=== PATIENT | male | born 1955 | race Caucasian/White ===

== ENCOUNTER 2017-07-16 21:47 | Observation (INO) ==
[2017-07-16 22:16] LABS: Basophils # 0.1 K/mcL (0.0-0.2); Basophils % 0.9 %; Eosinophils # 0.2 K/mcL (0.0-0.6); Eosinophils % 2.9 %; Hematocrit 44.4 % (37.5-50.1); Hemoglobin 15.1 g/dL (12.9-16.9); Immature Granulocytes % 0.4 % (0-4); Lymphocytes # 2.7 K/mcL (0.6-4.6); Lymphocytes % 38.5 %; Mean Corpuscular Hemoglobin 29.2 pg (28.0-33.3); Mean Corpuscular Volume 85.9 fL (83.0-100.0); Mean Platelet Volume 10.7 fL (9.4-12.4); Monocytes # 0.3 K/mcL (0.0-1.3); Monocytes % 4.2 %; Neutrophils # 3.7 K/mcL (1.6-8.9); Platelet Count 188 K/mcL (140-400); Red Blood Count 5.17 M/mcL (4.19-5.50); Segmented Neutrophils % 53.1 %
[2017-07-16 22:22] LABS: Prothrombin Time 10.6 Seconds (9.4-12.1)
[2017-07-16 22:25] LABS: Activated Partial Thrombo Time 30.9 Seconds (26.0-36.0)
[2017-07-16 22:29] LABS: Alanine Aminotransferase 18 Units/L (7-52); Albumin 3.9 g/dL (3.5-5.7); Albumin/Globulin Ratio 1.6 (1.1-2.2); Alkaline Phosphatase 72 Units/L (34-104); Aspartate Amino Transferase 20 Units/L (13-39); BUN/Creatinine Ratio 13 (6-26); Bilirubin,Indirect 0.4 mg/dL (0.0-1.2); Bilirubin,Total 0.4 mg/dL (0.3-1.0); Blood Urea Nitrogen 13 mg/dL (8-23); Carbon Dioxide 26 mEq/L (23-29); Chloride 107 mEq/L (98-107); Globulin 2.5 g/dL (2.4-3.5); Glucose 144 mg/dL (70-105); Osmolality,Calculated 285 (280-300); Potassium 3.9 mEq/L (3.5-5.1); Sodium 136 mEq/L (136-145); Total Protein 6.4 g/dL (6.4-8.9); eGFR For African Americans > 60 (> 60); eGFR For Non-African Americans > 60 (> 60)
[2017-07-16 22:30] LABS: Bilirubin,Urine Negative (Negative); Blood,Urine Trace (Negative); Clarity,Urine Clear (Clear); Color,Urine Yellow (Yellow); Glucose,Urine (UA) 500 mg/dL (Normal); Ketones,Urine Negative (Negative); Leukocyte Esterase,Urine Negative (Negative); Nitrite,Urine Negative (Negative); PH,Urine 6.5 pH Units (5.0-8.0); Protein,Urine 100 mg/dL (Neg-Trace); Specific Gravity,Urine 1.008 (1.010-1.025); Urobilinogen,Urine Normal (Normal)
[2017-07-16 22:32] LABS: Hyaline Casts,Urine None Seen per lpf (None-Few); Squamous Epithelial Cell,Urine Many per lpf (None-Few); WBC,Urine 0-3 per hpf (0-3)
[2017-07-16 22:35] LABS: Ethanol < 10 mg/dL (0-10)
[2017-07-16 22:36] LABS: Amphetamine Screen,Urine Negative ng/mL (Cutoff=1000); Barbiturate Screen,Urine Negative ng/mL (Cutoff=200); Benzodiazepines Screen,Urine Negative ng/mL (Cutoff=200); Cannabinoid Screen,Urine Negative ng/mL (Cutoff = 50); Cocaine Screen,Urine Negative ng/mL (Cutoff= 300); Opiate Screen,Urine Negative ng/mL (Cutoff=300); Phencyclidine Screen,Urine Negative ng/mL (Cutoff=25)
--- NOTE | 2017-07-16 22:38 | Emergency Department Note ---
Disposition Clinical Impression: Fall Qualifiers: Encounter type: initial encounter Qualified Code(s): W19.XXXA - Unspecified fall, initial encounter Altered mental status Qualifiers: Altered mental status type: unspecified Qualified Code(s): R41.82 - Altered mental status, unspecified Disposition: Admitted As Inpatient Condition: Good [facility]Primary Care Provider[facility] - Forms: ED Satisfaction Letter Time of Disposition: 01:56 General Adult HPI - General Chief complaint: ED Altered Mental Status Stated complaint: AMS Time Seen by Provider: 07/16/17 21:49 Source: family, EMS Limitations: altered mental status Nursing Notes Reviewed: Yes Vital Signs Reviewed: Yes - History of Present Illness HPI Narrative: Patient is a 61-year-old male that presents to the emergency department via EMS for altered mental status. EMS states that he was at home slumped to the side and slid down the fridge. Patient is unable to provide any history here in the emergency department. There is no other family present to provide history Pain Scale: 0 - Related Data Home Medications Medication Instructions Recorded Confirmed Cholecalciferol (Vitamin D3) 2,000 unit PO DAILY 01/27/15 02/20/16 [Vitamin D3] Cyanocobalamin (Vitamin B-12) 1,000 mcg PO QAM 01/27/15 02/20/16 [Vitamin B12] Docusate [Colace] 200 mg PO DAILY 01/27/15 02/20/16 Duloxetine HCl [Cymbalta] 30 mg PO DAILY 01/27/15 02/20/16 Ferrous Sulfate 325 mg PO 3XW 01/27/15 02/20/16 Insulin NPH Human Isophane 38 unit SQ QAM 01/27/15 02/24/16 [Novolin N] Lisinopril [Zestril] 20 mg PO DAILY 01/27/15 02/20/16 Meclizine HCl [Antivert] 25 mg PO BID PRN 01/27/15 02/20/16 Melatonin 3 mg PO HS 01/27/15 02/24/16 Methocarbamol 500 mg PO TID 01/27/15 02/24/16 Metoprolol Tartrate 25 mg PO BID 01/27/15 02/20/16 Sennosides [Senna] 8.6 mg PO BID PRN 01/27/15 02/20/16 Terazosin HCl 2 mg PO HS 01/27/15 02/20/16 Buspirone HCl [Buspar] 10 mg PO BID 08/13/15 02/20/16 Insulin ASPART [NovoLOG] 2 - 10 unit SQ AD 08/13/15 02/20/16 Simvastatin [Zocor] 40 mg PO HS 08/13/15 02/20/16 Gabapentin [Neurontin] 600 mg PO TID 02/24/16 02/24/16 Insulin NPH Human Isophane 42 unit SQ QPM 02/24/16 02/24/16 [Humulin N Kwikpen] Nitroglycerin 0.4 mg SL Q5MIN PRN 02/24/16 02/24/16 Trazodone HCl 300 mg PO HS 02/24/16 02/24/16 Previous Rx's Medication Instructions Recorded Aspirin 325 mg PO DAILY 30 Days tablet 08/16/15 Allergies Allergy/AdvReac Type Severity Reaction Status Date / Time metformin AdvReac Nausea Verified 02/21/16 16:29 bleach Allergy Hives Uncoded 01/27/15 18:42 Limitations: ROS unobtainable due to patients medical condition Past Medical History - Past Medical History Medical history: Reports: coronary artery disease, CVA, diabetes, hyperlipidemia , hypertension, peripheral artery disease, RA Surgical history: Reports: angioplasty/stent (x3 in 2005), cholecystectomy, other (exploratory laparotomy x3 for SBO, last was in 2012) Psychiatric history: Reports: anxiety, depression, PTSD - Social History Smoking Status: Never smoker Smokeless Tobacco Status: No Alcohol use: Reports: none Drug use: Reports: none Physical Exam - General Limitations: altered mental status General appearance: obtunded, obese - Head Head exam: atraumatic, normocephalic - Eye Eye exam: Present: normal appearance - Neck Neck exam: Present: normal inspection. Absent: full ROM, trachea midline - Cardiovascular Cardiovascular exam: Present: regular rate, normal rhythm, normal heart sounds, +S1, +S2 - Abdominal Exam Abdominal exam: Present: soft, normal bowel sounds. Absent: distention, guarding, rebound - Neurological Exam Neurological exam: Present: other (The patient was altered and not alert on physical exam.) - Psychiatric Psychiatric exam: Present: other (Able to assess due to the patient's mental status) - Skin Skin exam: Present: warm, dry, intact Course - Reevaluation(s) Reevaluation #1: On reevaluation of the patient there is family at bedside who states that he tripped over a dog and bounced off the refrigerator. He states that he is now having neck pain and back pain. Due to finding out that he has neck pain and back pain we will obtain CT scans of the cervical thoracic and lumbar spine. Time: 23:18 Vital Signs Temperature 97.0 F L 07/16/17 21:47 Pulse Rate 77 07/16/17 21:47 Respiratory Rate 16 07/16/17 21:47 Blood Pressure 202/126 07/16/17 21:47 O2 Sat by Pulse Oximetry 92 07/16/17 21:47 Temperature 99.5 F 07/16/17 22:01 Pulse Rate 72 07/16/17 23:18 Respiratory Rate 18 07/16/17 23:18 Blood Pressure 131/87 07/16/17 23:18 O2 Sat by Pulse Oximetry 99 07/16/17 23:18 Oxygen Delivery Oxygen Delivery Nasal Cannula Medical Decision Making - [facility] Narrative Medical decision making narrative: Due to the patient having a recent fall we obtained a CT scan of the head, cervical spine, thoracic spine and lumbar spine. There is no acute findings noted on any of these imaging modalities. The patient appeared to be spilling glucose into his urine. Otherwise the remainder of his laboratory testing was unremarkable. However when the patient was road tested and try to ambulate he became dizzy and stated he was not sure he could come back to his bed. Due to the patient still having symptoms will admit the patient to the hospital for further evaluation and management. I have spoken with the hospitalist and they will accept the patient to their service. The patient will be admitted to the hospital at this time for further evaluation and management. - Lab Data Lab results reviewed: Yes I reviewed the patient's lab results. Result diagrams: 07/16/17 22:05 07/16/17 22:05 Lab Results 07/16/17 07/16/17 07/16/17 Range/Units 22:05 22: 22: WBC 7.0 (4.3-11.1) K/mcL RBC 5.17 (4.19-5.50) M/mcL Hgb 15.1 (12.9-16.9) g/dL Hct 44.4 (37.5-50.1) % MCV 85.9 (83.0-100.0) fL MCH 29.2 (28.0-33.3) pg MCHC 34.0 (31.6-35.5) g/dL RDW 13.0 (11.5-14.5) % Plt Count 188 (140-400) K/mcL MPV 10.7 (9.4-12.4) fL Immature Gran % 0.4 (0-4) % Seg Neutrophils % 53.1 % Lymphocytes % 38.5 % Monocytes % 4.2 % Eosinophils % 2.9 % Basophils % 0.9 % Neutrophils # 3.7 (1.6-8.9) K/mcL Lymphocytes # 2.7 (0.6-4.6) K/mcL Monocytes # 0.3 (0.0-1.3) K/mcL Eosinophils # 0.2 (0.0-0.6) K/mcL Basophils # 0.1 (0.0-0.2) K/mcL PT 10.6 (9.4-12.1) Seconds INR 1.0 APTT 30.9 (26.0-36.0) Seconds Sodium 136 (136-145) mEq/L Potassium 3.9 (3.5-5.1) mEq/L Chloride 107 (98-107) mEq/L Carbon Dioxide 26 (23-29) mEq/L BUN 13 (8-23) mg/dL Creatinine 1.00 (0.70-1.30) mg/dL Est GFR ( Amer) > 60 (> 60) Est GFR (Non-Af Amer) > 60 (> 60) BUN/Creatinine Ratio 13 (6-26) Glucose 144 H (70-105) mg/dL Calculated Osmolality 285 (280-300) Calcium 9.0 (8.6-10.3) mg/dL Total Bilirubin 0.4 (0.3-1.0) mg/dL Direct Bilirubin 0.0 (0.0-0.2) mg/dL Indirect Bilirubin 0.4 (0.0-1.2) mg/dL AST 20 (13-39) Units/L ALT 18 (7-52) Units/L Alkaline Phosphatase 72 (34-104) Units/L Ammonia (16-53) mcmol/L Troponin I (< 0.04) ng/mL Serum Total Protein 6.4 (6.4-8.9) g/dL Albumin 3.9 (3.5-5.7) g/dL Globulin 2.5 (2.4-3.5) g/dL Albumin/Globulin Ratio 1.6 (1.1-2.2) TSH 0.454 (0.340-5.600) mcIU/mL Urine Color (Yellow) Urine Clarity (Clear) Urine pH (5.0-8.0) pH Units Ur Specific [place] (1.010-1.025) Urine Protein (Neg-Trace) mg/dL Urine Glucose (UA) (Normal) mg/dL Urine Ketones (Negative) mg/dL Urine Blood (Negative) Urine Nitrite (Negative) Urine Bilirubin (Negative) Urine Urobilinogen (Normal) mg/dL Ur Leukocyte Esterase (Negative) Urine Microscopic RBC (0-3) per hpf Urine Microscopic WBC (0-3) per hpf Ur Squamous Epith Cells (None-Few) per lpf Urine Bacteria (None-Few) per hpf Hyaline Casts (None-Few) per lpf Ur Culture Indicated? (NO) Urine Opiates Screen (Pygczx=284) ng/mL Ur Barbiturates Screen (Fdefrb=609) ng/mL Ur Phencyclidine Scrn (Cutoff=25) ng/mL Ur Amphetamines Screen (Dwaymp=6062) ng/mL U Benzodiazepines Scrn (Pjqgok=484) ng/mL Urine Cocaine Screen (Cutoff= 300) ng/mL U Marijuana (THC) Screen (Cutoff = 50) ng/mL Ethyl Alcohol < 10 (0-10) mg/dL 07/16/17 07/16/17 07/16/17 Range/Units 22:05 22:05 22:16 WBC (4.3-11.1) K/mcL RBC (4.19-5.50) M/mcL Hgb (12.9-16.9) g/dL Hct (37.5-50.1) % MCV (83.0-100.0) fL MCH (28.0-33.3) pg MCHC (31.6-35.5) g/dL RDW (11.5-14.5) % Plt Count (140-400) K/mcL MPV (9.4-12.4) fL Immature Gran % (0-4) % Seg Neutrophils % % Lymphocytes % % Monocytes % % Eosinophils % % Basophils % % Neutrophils # (1.6-8.9) K/mcL Lymphocytes # (0.6-4.6) K/mcL Monocytes # (0.0-1.3) K/mcL Eosinophils # (0.0-0.6) K/mcL Basophils # (0.0-0.2) K/mcL PT (9.4-12.1) Seconds INR APTT (26.0-36.0) Seconds Sodium (136-145) mEq/L Potassium (3.5-5.1) mEq/L Chloride (98-107) mEq/L Carbon Dioxide (23-29) mEq/L BUN (8-23) mg/dL Creatinine (0.70-1.30) mg/dL Est GFR ( Amer) (> 60) Est GFR (Non-Af Amer) (> 60) BUN/Creatinine Ratio (6-26) Glucose (70-105) mg/dL Calculated Osmolality (280-300) Calcium (8.6-10.3) mg/dL Total Bilirubin (0.3-1.0) mg/dL Direct Bilirubin (0.0-0.2) mg/dL Indirect Bilirubin (0.0-1.2) mg/dL AST (13-39) Units/L ALT (7-52) Units/L Alkaline Phosphatase (34-104) Units/L Ammonia 44 (16-53) mcmol/L Troponin I < 0.03 (< 0.04) ng/mL Serum Total Protein (6.4-8.9) g/dL Albumin (3.5-5.7) g/dL Globulin (2.4-3.5) g/dL Albumin/Globulin Ratio (1.1-2.2) TSH (0.340-5.600) mcIU/mL Urine Color Yellow (Yellow) Urine Clarity Clear (Clear) Urine pH 6.5 (5.0-8.0) pH Units Ur Specific [place] 1.008 L (1.010-1.025) Urine Protein 100 H (Neg-Trace) mg/dL Urine Glucose (UA) 500 H (Normal) mg/dL Urine Ketones Negative (Negative) mg/dL Urine Blood Trace H (Negative) Urine Nitrite Negative (Negative) Urine Bilirubin Negative (Negative) Urine Urobilinogen Normal (Normal) mg/dL Ur Leukocyte Esterase Negative (Negative) Urine Microscopic RBC 3-5 H (0-3) per hpf Urine Microscopic WBC 0-3 (0-3) per hpf Ur Squamous Epith Cells Many H (None-Few) per lpf Urine Bacteria Few (None-Few) per hpf Hyaline Casts None Seen (None-Few) per lpf Ur Culture Indicated? NO (NO) Urine Opiates Screen (Nbgrqf=908) ng/mL Ur Barbiturates Screen (Xpnqux=573) ng/mL Ur Phencyclidine Scrn (Cutoff=25) ng/mL Ur Amphetamines Screen (Whczpi=9944) ng/mL U Benzodiazepines Scrn (Pkntgw=202) ng/mL Urine Cocaine Screen (Cutoff= 300) ng/mL U Marijuana (THC) Screen (Cutoff = 50) ng/mL Ethyl Alcohol (0-10) mg/dL 07/16/17 Range/Units 22:16 WBC (4.3-11.1) K/mcL RBC (4.19-5.50) M/mcL Hgb (12.9-16.9) g/dL Hct (37.5-50.1) % MCV (83.0-100.0) fL MCH (28.0-33.3) pg MCHC (31.6-35.5) g/dL RDW (11.5-14.5) % Plt Count (140-400) K/mcL MPV (9.4-12.4) fL Immature Gran % (0-4) % Seg Neutrophils % % Lymphocytes % % Monocytes % % Eosinophils % % Basophils % % Neutrophils # (1.6-8.9) K/mcL Lymphocytes # (0.6-4.6) K/mcL Monocytes # (0.0-1.3) K/mcL Eosinophils # (0.0-0.6) K/mcL Basophils # (0.0-0.2) K/mcL PT (9.4-12.1) Seconds INR APTT (26.0-36.0) Seconds Sodium (136-145) mEq/L Potassium (3.5-5.1) mEq/L Chloride (98-107) mEq/L Carbon Dioxide (23-29) mEq/L BUN (8-23) mg/dL Creatinine (0.70-1.30) mg/dL Est GFR ( Amer) (> 60) Est GFR (Non-Af Amer) (> 60) BUN/Creatinine Ratio (6-26) Glucose (70-105) mg/dL Calculated Osmolality (280-300) Calcium (8.6-10.3) mg/dL Total Bilirubin (0.3-1.0) mg/dL Direct Bilirubin (0.0-0.2) mg/dL Indirect Bilirubin (0.0-1.2) mg/dL AST (13-39) Units/L ALT (7-52) Units/L Alkaline Phosphatase (34-104) Units/L Ammonia (16-53) mcmol/L Troponin I (< 0.04) ng/mL Serum Total Protein (6.4-8.9) g/dL Albumin (3.5-5.7) g/dL Globulin (2.4-3.5) g/dL Albumin/Globulin Ratio (1.1-2.2) TSH (0.340-5.600) mcIU/mL Urine Color (Yellow) Urine Clarity (Clear) Urine pH (5.0-8.0) pH Units Ur Specific [place] (1.010-1.025) Urine Protein (Neg-Trace) mg/dL Urine Glucose (UA) (Normal) mg/dL Urine Ketones (Negative) mg/dL Urine Blood (Negative) Urine Nitrite (Negative) Urine Bilirubin (Negative) Urine Urobilinogen (Normal) mg/dL Ur Leukocyte Esterase (Negative) Urine Microscopic RBC (0-3) per hpf Urine Microscopic WBC (0-3) per hpf Ur Squamous Epith Cells (None-Few) per lpf Urine Bacteria (None-Few) per hpf Hyaline Casts (None-Few) per lpf Ur Culture Indicated? (NO) Urine Opiates Screen Negative (Jpyisr=458) ng/mL Ur Barbiturates Screen Negative (Lxkmtr=036) ng/mL Ur Phencyclidine Scrn Negative (Cutoff=25) ng/mL Ur Amphetamines Screen Negative (Wmpzhc=9740) ng/mL U Benzodiazepines Scrn Negative (Fesspc=627) ng/mL Urine Cocaine Screen Negative (Cutoff= 300) ng/mL U Marijuana (THC) Screen Negative (Cutoff = 50) ng/mL Ethyl Alcohol (0-10) mg/dL - Radiology Data Radiology results reviewed: Yes I reviewed the patient's radiology results. Head CT 07/16/17 21:49 IMPRESSION: No acute intracranial abnormality. D/ / Ludy Girard MD / Ludy Girard MD Interpreting Provider: Ludy Girard MD Chest X-Ray 07/16/17 21:55 IMPRESSION: Low lung volume study without acute process. D/ / Ludy Girard MD / Ludy Girard MD Interpreting Provider: Ludy Girard MD Cervical Spine CT 07/16/17 23:16 IMPRESSION: No acute abnormality of the cervical spine. No acute abnormality of the thoracic spine. No acute abnormality of the lumbar spine. Multilevel degenerative changes throughout the cervical, thoracic, and lumbar spine. D/ / Ludy Girard MD / Ludy Girard MD Interpreting Provider: Ludy Girard MD Lumbar Spine CT 07/16/17 23:16 IMPRESSION: No acute abnormality of the cervical spine. No acute abnormality of the thoracic spine. No acute abnormality of the lumbar spine. Multilevel degenerative changes throughout the cervical, thoracic, and lumbar spine. D/ / Ludy Girard MD / Ludy Girard MD Interpreting Provider: Ludy Girard MD Thoracic Spine CT 07/16/17 23:16 IMPRESSION: No acute abnormality of the cervical spine. No acute abnormality of the thoracic spine. No acute abnormality of the lumbar spine. Multilevel degenerative changes throughout the cervical, thoracic, and lumbar spine. D/ / Ludy Girard MD / Ludy Girard MD Interpreting Provider: Ludy Girard MD - EKG Data EKG #1 EKG attestation: Yes I reviewed and interpreted this EKG. EKG results narrative: Patient's EKG shows sinus rhythm at 76 bpm, MT interval of 162, QRS duration of 105, QTC of 403. No STEMI noted on this EKG. Attestation Statement - Attestation Attestation: I examined this patient and my medical decision-making was reviewed with the Resident Physician. I agree with the documented findings, disposition and treatment plan as described except to the extent set forth below. Patient presents to the ED with altered mental status. Per significant other the patient tripped over the dog and hit his head on the refrigerator. He had a loss of consciousness. They found him slumped against the refrigerator. On arrival here patient is laying in the bed. Pupils equally reactive. Lungs are clear. He has a gag reflex. Plan. He was taken to CT that is negative. His blood pressure improved on its own. Labs unremarkable. Tox negative. Vital signs stable. The patient's mental status is improved and is now at baseline. He is complaining of some back pain so we will CT those areas to rule out fracture. Disposition pending reevaluation and ambulation.
[2017-07-16 22:57] LABS: Thyroid Stimulating Hormone 0.454 mcIU/mL (0.340-5.600)
[2017-07-16 23:01] LABS: Bacteria,Urine Few per hpf (None-Few)
[2017-07-17] MEDS ORDERED: Methocarbamol 500 MG TABLET PO PRN (02:06)
[2017-07-17] MEDS ORDERED: Naloxone 0.4 MG/ML INJ IVP PRN (02:08)
[2017-07-17] MEDS ORDERED: D5% in Water 1,000 ML IVC PRN (02:08)
[2017-07-17] MEDS ORDERED: *HR* Dextrose 50 % in Water (Syg) 50 ML SYRINGE IVP PRN (02:08)
[2017-07-17] MEDS ORDERED: Dextrose Gel 15 GM/37.5 ML TUBE PO PRN ×2 (02:08)
--- NOTE | 2017-07-17 02:16 | Internal Med History&Physical ---
Date of Encounter: 07/17/17 Time of Encounter: 02:13 Assessment and Plan (1) Concussion Current visit: Yes Status: Acute admit under obs. observed overnight OT/PT in the a.m to test ambulation, gait and balance Qualifiers: Encounter type: initial encounter Loss of consciousness presence/duration: with LOC of unspecified duration Qualified Code(s): S06.0X9A - Concussion with loss of consciousness of unspecified duration, initial encounter (2) Fall Current visit: Yes Status: Acute mechanical fall. witnessed that he tripped on his dog leading to concussion Qualifiers: Encounter type: initial encounter Qualified Code(s): W19.XXXA - Unspecified fall, initial encounter (3) CAD (coronary artery disease) Current visit: No Status: Chronic continue med s/p stents on asa alone patient does not recall full med list Qualifiers: Coronary Disease-Associated Artery/Lesion type: [place] artery [place] vs. 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 Givens is a 61 year old male with hx of IDDM, HTN, HLD, CAD s/p 6 stents who presents with a concussion. This past evening at around 830 pm, he tripped on his dog and felt backwards, first hitting the fridge before landing on the floor where he was knocked out cold. This was witnessed by family member. He was brought to the ED where he was initially unresponsive but later regained consciousness. It was estimated that he was unresponsive for 2 hours. He is c/o upper back and neck of head pain 2/2 to fall. He later attempt to ambulate but felt generalized weakness and dizzy as a result of his trauma. He has chronic back pain but the trauma to his head and upper back C-T spine has exacerbated his back pain EKG personally reviewed with rate 76, NSR CT/CT head/brain wo con IMPRESSION: No acute intracranial abnormality. XR/XR chest 1V portable IMPRESSION: Low lung volume study without acute process. CT/CT cervical spine wo con IMPRESSION: No acute abnormality of the cervical spine. No acute abnormality of the thoracic spine. No acute abnormality of the lumbar spine. Multilevel degenerative changes throughout the cervical, thoracic, and lumbar spine. CT/CT lumbar spine wo con IMPRESSION: No acute abnormality of the cervical spine. No acute abnormality of the thoracic spine. No acute abnormality of the lumbar spine. Multilevel degenerative changes throughout the cervical, thoracic, and lumbar spine. CT/CT thoracic spine wo con IMPRESSION: No acute abnormality of the cervical spine. No acute abnormality of the thoracic spine. No acute abnormality of the lumbar spine. Multilevel degenerative changes throughout the cervical, thoracic, and lumbar spine. Past Med Surg Social Fam HX - Past Medical History Medical history: coronary artery disease, CVA, diabetes, hyperlipidemia, hypertension, peripheral artery disease, RA Psychiatric history: anxiety, depression, PTSD - Past Surgical History Surgical History: angioplasty/stent (x3 in 2005), cholecystectomy, other ( exploratory laparotomy x3 for SBO, last was in 2012) - Social History Smoking Status: Never smoker Smokeless Tobacco Status: No Alcohol use: none Drug use: none - Family History Mother Living Status: Hx Family Cardiac Disorders: Yes Hx Family Endocrine Disorder: Yes (DM) Father Living Status: Hx Family Cardiac Disorders: Yes Internal Medicine - H&P: Meds Cholecalciferol (Vitamin D3) [Vitamin D3] 2,000 unit PO DAILY 01/27/15 [History] Cyanocobalamin (Vitamin B-12) [Vitamin B12] 1,000 mcg PO QAM 01/27/15 [History] Docusate [Colace] 200 mg PO DAILY 01/27/15 [History] Duloxetine HCl [Cymbalta] 30 mg PO DAILY 01/27/15 [History] Ferrous Sulfate 325 mg PO 3XW 01/27/15 [History] Insulin NPH Human Isophane [Novolin N] 38 unit SQ QAM 01/27/15 [History] Lisinopril [Zestril] 20 mg PO DAILY 01/27/15 [History] Meclizine HCl [Antivert] 25 mg PO BID PRN 01/27/15 [History] Melatonin 3 mg PO HS 01/27/15 [History] Methocarbamol 500 mg PO TID 01/27/15 [History] Metoprolol Tartrate 25 mg PO BID 01/27/15 [History] Sennosides [Senna] 8.6 mg PO BID PRN 01/27/15 [History] Terazosin HCl 2 mg PO HS 01/27/15 [History] Buspirone HCl [Buspar] 10 mg PO BID 08/13/15 [History] Insulin ASPART [NovoLOG] 2 - 10 unit SQ AD 08/13/15 [History] Simvastatin [Zocor] 40 mg PO HS 08/13/15 [History] Aspirin 325 mg PO DAILY 30 Days tablet 08/16/15 [Rx] Gabapentin [Neurontin] 600 mg PO TID 02/24/16 [History] Insulin NPH Human Isophane [Humulin N Kwikpen] 42 unit SQ QPM 02/24/16 [History] Nitroglycerin 0.4 mg SL Q5MIN PRN 02/24/16 [History] Trazodone HCl 300 mg PO HS 02/24/16 [History] 3 Allergy/AdvReac Type Severity Reaction Status Date / Time metformin AdvReac Nausea Verified 02/21/16 16:29 bleach Allergy Hives Uncoded 01/27/15 18:42 All Systems PM: A 10-system review of systems was performed and is negative for pertinent findings except as documented above in the HPI. Review of systems: ROS 14 point review of systems reviewed as best as possible given presentation. Pertinent positive or negative as per HPI or otherwise reviewed as negative - Constitutional Vitals: Temp Pulse Resp BP Pulse Ox 99.5 F 72 18 131/87 99 07/16/17 22:01 07/16/17 23:18 07/16/17 23:18 07/16/17 23:18 07/16/17 23:18 Exam: General - AAO x 3 Psych - Appropriate affect/speech. No agitation Eyes - JIMMY. Eye lids intact. No scleral icterus Neuro - No focal gross peripheral or central neuro deficits on inspection Heart - Sinus. RRR. S1 and S2 present. No added HS/murmurs appreciated. No elevated JVD appreciated. Lung - Adequate air entry b/l, No crackles/wheezes appreciated GI - Soft, non-tender. No hepatosplenomegaly/ascites. BS+ - No CVA/suprapubic tenderness or palpable bladder distension Skin - Intact. No rash/petechiae/ecchymosis. Warm extremities MSK - upper back pain and head Internal Med - H&P Results - Labs CBC & Chem 7: 07/16/17 22:05 07/16/17 22:05
[2017-07-17] MEDS: Insulin LISPRO 300 UNITS/3 ML VIAL SQ SCH ×3 (07:57→15:49)
[2017-07-17] MEDS: *HR* OxyCODONE Immed Rel 5 MG TABLET PO PRN ×3 (08:01→22:24)
[2017-07-17] MEDS: Lisinopril 20 MG TABLET PO SCH (08:02)
[2017-07-17] MEDS: Aspirin 325 MG TABLET PO SCH (08:02)
[2017-07-17] MEDS: Insulin DETEMIR 100 UNIT/ML X5UNITS SQ SCH (09:02)
--- NOTE | 2017-07-17 16:29 | Event Note ---
Date of Encounter: 07/17/17 Time of Encounter: 11:30 (1) Concussion: admit under obs. observed overnight. OT/PT in the a.m to test ambulation, gait and balance (2) Fallmechanical fall. witnessed that he tripped on his dog leading to concussion (3) CAD (coronary artery disease) continue home meds s/p stents on asa alone (4) Diabetes: per hx. Cont home insulin (5) HTN (hypertension): per hx. BP controlled. Cont hme BP medictaions
[2017-07-17] MEDS ORDERED: Insulin LISPRO 300 UNITS/3 ML VIAL SQ SCH (21:00)
[2017-07-18] MEDS: Insulin LISPRO 300 UNITS/3 ML VIAL SQ SCH ×3 (08:08→17:38)
[2017-07-18] MEDS: Aspirin 325 MG TABLET PO SCH (08:11)
[2017-07-18] MEDS: Lisinopril 20 MG TABLET PO SCH (08:11)
[2017-07-18] MEDS: *HR* OxyCODONE Immed Rel 5 MG TABLET PO PRN (08:19)
[2017-07-18] MEDS: Insulin DETEMIR 100 UNIT/ML X5UNITS SQ SCH (10:45)
--- NOTE | 2017-07-18 16:16 | Discharge Summary ---
Date of Encounter: 07/18/17 Time of Encounter: 16:15 - Discharge Diagnosis (1) Concussion Priority: Primary Status: Acute Comments: secondary to to fall. Head CT nonacute, brain MRI without acute infarct or ischemia. May neurologically intact. Independent ambulation with normal gait and balance. Patient returned to baseline. Recommend follow-up with PCP within 1-2 weeks. Qualifiers: Encounter type: initial encounter Loss of consciousness presence/duration: with LOC of unspecified duration Qualified Code(s): S06.0X9A - Concussion with loss of consciousness of unspecified duration, initial encounter (2) Fall Priority: Primary Status: Acute Comments: Suffered a witnessed, mechanical fall when he tripped over his dog. Fall is clearly mechanical in nature, no further workup needed. Qualifiers: Encounter type: initial encounter Qualified Code(s): W19.XXXA - Unspecified fall, initial encounter (3) Diabetes Priority: Secondary Status: Chronic Comments: per hx. blood sugars controlled. 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 BP controlled. Cont hme BP medictaions Qualifiers: Hypertension type: essential hypertension Qualified Code(s): I10 - Essential (primary) hypertension - Discharge Medications Home Medications: Cholecalciferol (Vitamin D3) [Vitamin D3] 2,000 unit PO DAILY 01/27/15 [History] Cyanocobalamin (Vitamin B-12) [Vitamin B12] 1,000 mcg PO QAM 01/27/15 [History] Docusate [Colace] 200 mg PO DAILY 01/27/15 [History] Duloxetine HCl [Cymbalta] 30 mg PO DAILY 01/27/15 [History] Ferrous Sulfate 325 mg PO 3XW 01/27/15 [History] Insulin NPH Human Isophane [Novolin N] 38 unit SQ QAM 01/27/15 [History] Lisinopril [Zestril] 20 mg PO DAILY 01/27/15 [History] Meclizine HCl [Antivert] 25 mg PO BID PRN 01/27/15 [History] Melatonin 3 mg PO HS 01/27/15 [History] Methocarbamol 500 mg PO TID 01/27/15 [History] Metoprolol Tartrate 25 mg PO BID 01/27/15 [History] Sennosides [Senna] 8.6 mg PO BID PRN 01/27/15 [History] Terazosin HCl 2 mg PO HS 01/27/15 [History] Buspirone HCl [Buspar] 10 mg PO BID 08/13/15 [History] Insulin ASPART [NovoLOG] 2 - 10 unit SQ AD 08/13/15 [History] Simvastatin [Zocor] 40 mg PO HS 08/13/15 [History] Aspirin 325 mg PO DAILY 30 Days tablet 08/16/15 [Rx] Gabapentin [Neurontin] 800 mg PO TID 02/24/16 [History] Insulin NPH Human Isophane [Humulin N Kwikpen] 42 unit SQ QPM 02/24/16 [History] Nitroglycerin 0.4 mg SL Q5MIN PRN 02/24/16 [History] Trazodone HCl 300 mg PO HS 02/24/16 [History] Insulin ASPART [Novolog] 4 units SQ QAM 07/17/17 [History] Insulin Glargine [Lantus] 60 units SQ QAM 07/17/17 [History] Allergies/Adverse Reactions: 3 Allergy/AdvReac Type Severity Reaction Status Date / Time metformin AdvReac Nausea Verified 02/21/16 16:29 bleach Allergy Hives Uncoded 01/27/15 18:42 Procedures/tests Complete & Pending: Procedures Performed prior 72 hours Category Date Time Status MR head/brain wo con [MR] Routine MRI 07/18/17 11:33 Draft Date of admission: 07/17/17 02:03 [facility] Consults: 07/17/17 02:07 Consult to Occupational Therapy [CONS] Routine Comment: Evaluate, develop and implement POC Reason for Consult: ambulate and assess Consult to Physical Therapy [CONS] Routine Comment: Evaluate, develop and implement POC Reason for Consult: ambulate assess for placement need Discharging clinician: Danielle Quinonez Anticipated date of discharge: 07/18/17 - Patient Status Disposition: Home, Self-Care Condition: Good Functional capacity at discharge: independent ambulation Overall status at discharge: patient is back to baseline - Discharge Instructions Instructions: Concussion (DC) Follow Up With: [facility] [Primary Care Provider] - - Diet and Activity Activity: increase activity as tolerated Diet: advance to your usual diet Interval History: Seen and examined at bedside. Patient is new to me, information obtained from chart review and patient report. Patient says he feels back to baseline and would like to discharge home today. No headaches no blurred or double vision, no paresthesias, no slurred speech or facial droop. Hospital course: See assessment and plan for hospital course - Time Spent with Patient Total time spent providing and/or coordinating discharge services: - Constitutional Vitals: Temp Pulse Resp BP Pulse Ox 98.2 F 72 16 120/82 95 07/18/17 11:59 07/18/17 11:59 07/18/17 11:59 07/18/17 11:59 07/18/17 11:59 General appearance: Present: A&O X 3 - Head Head exam: Present: atraumatic, normocephalic - Eye Eye exam: Present: PERRL, conjuntiva pink, sclera anicteric Pupils: Present: PERRL - Neck Neck exam general surgery: Present: supple, trachea midline. Absent: lymphadenopathy - Respiratory Respiratory exam: Present: CTAB. Absent: accessory muscle use, rales, rhonchi, wheezes - Cardiovascular Cardiovascular exam: Present: RRR, +S1, +S2. Absent: diastolic murmur, gallop, rubs, systolic murmur - GI/Abdominal GI/Abdominal exam: Present: normal bowel sounds, soft, no peritoneal signs. Absent: distended, tenderness - Extremities Exam Extremities exam: Present: warm, radial pulses palpable and symmetrical. Absent : calf tenderness, cyanotic, pedal edema - Neurological Exam Neurological exam: Present: CN II-XII intact, oriented X3, no focal deficits. Absent: pronater drift, facial droop, speech deficit - Skin Skin exam: Present: dry, intact
[2017-07-18 16:44] VITALS: BP 144/83
--- NOTE | 2017-07-19 17:19 | Electrocardiograph Report ---
[address] [address] Test Date: 2017-07-16 Pat Name: Bob Givens Department: 104 Room: 3B Gender: M Yarn Examiner: : 1955 Requested By: Ree See Order Number: [id number] Reading MD: Kyaw Poole Measurements Intervals [place] Rate: 76 P: 81 RI: 162 QRS: -24 QRSD: 105 T: 30 QT: 373 QTc: 403 Interpretive Statements SINUS RHYTHM BORDERLINE LEFT AXIS DEVIATION Electronically Signed On 07-19-2017 17:18:05 EST by Kyaw Poole
== END 2017-07-18 18:00 | disposition home or self-care (01) ==
LOC: EMEROO 21:47 → 3BNU 21:47
PROVIDERS: ADMIT Internal Medicine Hematology & Oncology; ATTEND Registered Nurse

== ENCOUNTER 2017-11-30 13:37 | Inpatient (IN) ==
--- NOTE | 2017-11-30 13:52 | Emergency Department Note ---
Disposition [facility]errals: [facility]Primary Care Provider[facility] - General Adult HPI - General Stated complaint: abdominal pain Time Seen by Provider: 11/30/17 13:47 Nursing Notes Reviewed: Yes Vital Signs Reviewed: Yes - Related Data Home Medications Medication Instructions Recorded Confirmed Cholecalciferol (Vitamin D3) 2,000 unit PO DAILY 01/27/15 07/17/17 [Vitamin D3] Cyanocobalamin (Vitamin B-12) 1,000 mcg PO QAM 01/27/15 07/17/17 [Vitamin B12] Docusate [Colace] 200 mg PO DAILY 01/27/15 07/17/17 Duloxetine HCl [Cymbalta] 30 mg PO DAILY 01/27/15 07/17/17 Ferrous Sulfate 325 mg PO 3XW 01/27/15 02/20/16 Insulin NPH Human Isophane 38 unit SQ QAM 01/27/15 02/24/16 [Novolin N] Lisinopril [Zestril] 20 mg PO DAILY 01/27/15 07/17/17 Meclizine HCl [Antivert] 25 mg PO BID PRN 01/27/15 07/17/17 Melatonin 3 mg PO HS 01/27/15 02/24/16 Methocarbamol 500 mg PO TID 01/27/15 07/17/17 Metoprolol Tartrate 25 mg PO BID 01/27/15 07/17/17 Sennosides [Senna] 8.6 mg PO BID PRN 01/27/15 07/17/17 Terazosin HCl 2 mg PO HS 01/27/15 07/17/17 Buspirone HCl [Buspar] 10 mg PO BID 08/13/15 07/17/17 Insulin ASPART [NovoLOG] 2 - 10 unit SQ AD 08/13/15 02/20/16 Simvastatin [Zocor] 40 mg PO HS 08/13/15 07/17/17 Gabapentin [Neurontin] 800 mg PO TID 02/24/16 07/17/17 Insulin NPH Human Isophane 42 unit SQ QPM 02/24/16 02/24/16 [Humulin N Kwikpen] Nitroglycerin 0.4 mg SL Q5MIN PRN 02/24/16 02/24/16 Trazodone HCl 300 mg PO HS 02/24/16 07/17/17 Insulin ASPART [Novolog] 4 units SQ QAM 07/17/17 07/17/17 Insulin Glargine [Lantus] 60 units SQ QAM 07/17/17 07/17/17 Previous Rx's Medication Instructions Recorded Aspirin 325 mg PO DAILY 30 Days tablet 08/16/15 Allergies Allergy/AdvReac Type Severity Reaction Status Date / Time metformin AdvReac Nausea Verified 02/21/16 16:29 bleach Allergy Hives Uncoded 01/27/15 18:42 Past Medical History - Past Medical History Medical history: Reports: coronary artery disease, CVA, diabetes, hyperlipidemia , hypertension, peripheral artery disease, RA Surgical history: Reports: angioplasty/stent, cholecystectomy, other Psychiatric history: Reports: anxiety, depression, PTSD - Social History Smoking Status: Never smoker Smokeless Tobacco Status: No Alcohol use: Reports: none Drug use: Reports: none
[2017-11-30] MEDS ORDERED: 0.9 % Sodium Chloride 250 ML IVC ONE ×2 (14:30→14:32)
[2017-11-30] MEDS ORDERED: Ondansetron 4 MG/2 ML VIAL IVP STA (14:32)
[2017-11-30 15:13] LABS: Hematocrit 32.8 % (37.5-50.1); Hemoglobin 10.9 g/dL (12.9-16.9); Mean Corpuscular HGB Conc 33.2 g/dL (31.6-35.5); Mean Corpuscular Hemoglobin 28.3 pg (28.0-33.3); Mean Corpuscular Volume 85.2 fL (83.0-100.0); Mean Platelet Volume 11.1 fL (9.4-12.4); Platelet Count 185 K/mcL (140-400); Red Blood Count 3.85 M/mcL (4.19-5.50)
[2017-11-30] MEDS ORDERED: Ketamine *HR* 25 MG in 0.9 % Sodium Chloride 100 ML IVPB ONE ×2 (15:27→15:42)
[2017-11-30] MEDS ORDERED: SODIUM CHLORIDE 0.9% IVC SCH (15:30)
[2017-11-30] MEDS ORDERED: KETAMINE IVC SCH (15:30)
--- NOTE | 2017-11-30 15:32 | Emergency Department Note ---
Disposition Clinical Impression: Small bowel obstruction, Abdominal wall hernia Disposition: Admitted As Inpatient Condition: Good [facility]errals: [facility] [Primary Care Provider[facility] - General Adult HPI - General Chief complaint: ED Abdominal Pain Stated complaint: abdominal pain Time Seen by Provider: 11/30/17 13:47 Source: patient, EMS Limitations: no limitations - History of Present Illness HPI Narrative: Patient presents from the [facility] with suspected small bowel obstruction. Patient states that his symptoms exactly replicate his prior episodes of SBO. He has had 7 bowel obstructions in the past, 3 of which required surgery. The symptoms have been present for several days, beginning with diarrhea and pain, but the pain has persisted after the diarrhea stopped 2 or 3 days ago. He has had minimal oral intake over the last couple of days. Has not had any bowel movements in the last 2 days. He is still having some flatus, but a small amount. He vomited 4 times yesterday, is nauseous without vomiting today. He has not had a fever. No symptoms of bleeding. No other complaints. Pain Scale: 8 - Related Data Home Medications Medication Instructions Recorded Confirmed Cholecalciferol (Vitamin D3) 2,000 unit PO DAILY 01/27/15 07/17/17 [Vitamin D3] Cyanocobalamin (Vitamin B-12) 1,000 mcg PO QAM 01/27/15 07/17/17 [Vitamin B12] Docusate [Colace] 200 mg PO DAILY 01/27/15 07/17/17 Duloxetine HCl [Cymbalta] 30 mg PO DAILY 01/27/15 07/17/17 Ferrous Sulfate 325 mg PO 3XW 01/27/15 02/20/16 Insulin NPH Human Isophane 38 unit SQ QAM 01/27/15 02/24/16 [Novolin N] Lisinopril [Zestril] 20 mg PO DAILY 01/27/15 07/17/17 Meclizine HCl [Antivert] 25 mg PO BID PRN 01/27/15 07/17/17 Melatonin 3 mg PO HS 01/27/15 02/24/16 Methocarbamol 500 mg PO TID 01/27/15 07/17/17 Metoprolol Tartrate 25 mg PO BID 01/27/15 07/17/17 Sennosides [Senna] 8.6 mg PO BID PRN 01/27/15 07/17/17 Terazosin HCl 2 mg PO HS 01/27/15 07/17/17 Buspirone HCl [Buspar] 10 mg PO BID 08/13/15 07/17/17 Insulin ASPART [NovoLOG] 2 - 10 unit SQ AD 08/13/15 02/20/16 Simvastatin [Zocor] 40 mg PO HS 08/13/15 07/17/17 Gabapentin [Neurontin] 800 mg PO TID 02/24/16 07/17/17 Insulin NPH Human Isophane 42 unit SQ QPM 02/24/16 02/24/16 [Humulin N Kwikpen] Nitroglycerin 0.4 mg SL Q5MIN PRN 02/24/16 02/24/16 Trazodone HCl 300 mg PO HS 02/24/16 07/17/17 Insulin ASPART [Novolog] 4 units SQ QAM 07/17/17 07/17/17 Insulin Glargine [Lantus] 60 units SQ QAM 07/17/17 07/17/17 Previous Rx's Medication Instructions Recorded Aspirin 325 mg PO DAILY 30 Days tablet 08/16/15 Allergies Allergy/AdvReac Type Severity Reaction Status Date / Time metformin AdvReac Nausea Verified 02/21/16 16:29 bleach Allergy Hives Uncoded 01/27/15 18:42 All systems ED: reviewed and negative except as stated. Past Medical History - Past Medical History Medical history: Reports: coronary artery disease, CVA, diabetes, hyperlipidemia , hypertension, peripheral artery disease, RA Surgical history: Reports: angioplasty/stent, cholecystectomy, other Psychiatric history: Reports: anxiety, depression, PTSD - Social History Smoking Status: Never smoker Smokeless Tobacco Status: No Alcohol use: Reports: none Drug use: Reports: none Physical Exam Vital signs noted please see nurse's notes. Gen.: Well-developed, well-nourished patient lying in bed who appears nontoxic. Head: Atraumatic, normocephalic. Eyes: Sclerae anicteric. ENT: Mucous membranes moist. Heart: Regular rate and rhythm without appreciable murmur. Lungs: Normal respiratory pattern without respiratory distress, lungs clear to auscultation bilaterally. Abdomen: Soft, diffusely tender with voluntary guarding to moderately deep palpation, nondistended, bowel sounds present and hypoactive. There is an abdominal wall defect just to the left of midline that is moderate in size that the pt states has been there for years, no incarcerated bowel segment. Skin: Warm and dry without rash. Neurologic: Awake, alert with normal speech and mental status. Cranial nerves grossly intact. No focal deficits or lateralizing signs. Psychiatric: Normal mood and affect. - General Limitations: no limitations General appearance: alert, in no apparent distress Course Vital Signs Temperature 98.0 F 11/30/17 13:52 Pulse Rate 88 11/30/17 13:52 Respiratory Rate 17 11/30/17 13:52 Blood Pressure 143/80 11/30/17 13:52 O2 Sat by Pulse Oximetry 96 11/30/17 13:52 Temperature 98.0 F 11/30/17 13:52 Pulse Rate 93 11/30/17 15:29 Respiratory Rate 20 11/30/17 15:29 Blood Pressure 151/102 11/30/17 15:29 O2 Sat by Pulse Oximetry 96 11/30/17 15:29 Oxygen Delivery Oxygen Delivery Room Air Medical Decision Making - MDM Narrative Medical decision making narrative: CT report reviewed. Although on CT scan it appears that the bowel obstruction as a result of an incarcerated loop in the anterior abdominal wall segment, this area is soft, not particularly tender, and easily reducible on exam. I believe it is most likely that the obstructed bowel loop that is adjacent to his abdominal wall defect is not a result of an incarcerated hernia, but the location is more likely coincidental. Surgery has been paged. Patient will require admission and surgical consultation. He remains uncomfortable at this point (has not yet received the ketamine and I ordered for him), but stable and in no acute distress. [facility], but does not want to go back - he wants to be admitted here. - Lab Data Result diagrams: 11/30/17 14:51 11/30/17 14:51 Lab Results 11/30/17 11/30/17 Range/Units 14:51 14:51 WBC 7.2 (4.3-11.1) K/mcL RBC 3.85 L (4.19-5.50) M/mcL Hgb 10.9 L (12.9-16.9) g/dL Hct 32.8 L (37.5-50.1) % MCV 85.2 (83.0-100.0) fL MCH 28.3 (28.0-33.3) pg MCHC 33.2 (31.6-35.5) g/dL RDW 13.0 (11.5-14.5) % Plt Count 185 (140-400) K/mcL MPV 11.1 (9.4-12.4) fL Sodium 141 (136-145) mEq/L Potassium 3.4 L (3.5-5.1) mEq/L Chloride 107 (98-107) mEq/L Carbon Dioxide 25 (23-29) mEq/L BUN 15 (8-23) mg/dL Creatinine 1.22 (0.70-1.30) mg/dL Est GFR ( Amer) > 60 (> 60) Est GFR (Non-Af Amer) 60 (> 60) BUN/Creatinine Ratio 12 (6-26) Glucose 127 H (70-105) mg/dL Calculated Osmolality 294 (280-300) Calcium 8.7 (8.6-10.3) mg/dL
[2017-11-30 15:33] LABS: BUN/Creatinine Ratio 12 (6-26); Blood Urea Nitrogen 15 mg/dL (8-23); Calcium 8.7 mg/dL (8.6-10.3); Carbon Dioxide 25 mEq/L (23-29); Chloride 107 mEq/L (98-107); Glucose 127 mg/dL (70-105); Osmolality,Calculated 294 (280-300); Potassium 3.4 mEq/L (3.5-5.1); Sodium 141 mEq/L (136-145); eGFR For African Americans > 60 (> 60); eGFR For Non-African Americans 60 (> 60)
--- NOTE | 2017-11-30 17:06 | General Surg History&Physical ---
Date of Encounter: 11/30/17 Time of Encounter: 17:00 Assessment and Plan (1) Abdominal wall hernia Current Visit: Yes Status: Acute The assessment and plan as outlined above was discussed with the patient and/or family members who expressed understanding and agreement. All questions were answered. NPO IV fuids Supportive care Proceed to the operating room for robotic assisted incisional hernia repair with Dr. Bains in the next 24 hours Incentive Spirometer every 1 hour while awake PPI therapy daily Ambulate hallways TID with assistance (2) Partial small bowel obstruction Current Visit: Yes Status: Acute The assessment and plan as outlined above was discussed with the patient and/or family members who expressed understanding and agreement. All questions were answered. NPO IV fuids Supportive care Proceed to the operating room for robotic assisted incisional hernia repair with Dr. Bains in the next 24 hours Incentive Spirometer every 1 hour while awake PPI therapy daily Ambulate hallways TID with assistance (3) HTN (hypertension) Current Visit: No Status: Chronic The assessment and plan as outlined above was discussed with the patient and/or family members who expressed understanding and agreement. All questions were answered. Will resume home medication regimen post-operatively Qualifiers: Hypertension type: essential hypertension Qualified Code(s): I10 - Essential (primary) hypertension (4) Diabetes Current Visit: No Status: Chronic The assessment and plan as outlined above was discussed with the patient and/or family members who expressed understanding and agreement. All questions were answered. 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 All questions were answered. Will resume home medication regimen post-operatively (6) CAD (coronary artery disease) Current Visit: No Status: Chronic The assessment and plan as outlined above was discussed with the patient and/or family members who expressed understanding and agreement. All questions were answered. Qualifiers: Coronary Disease-Associated Artery/Lesion type: [place] artery [place] vs. transplanted heart: [place] heart Associated angina: without angina Qualified Code(s): I25.10 - Atherosclerotic heart disease of [place] coronary artery without angina pectoris (7) DVT prophylaxis Current Visit: No Status: Acute The assessment and plan as outlined above was discussed with the patient and/or family members who expressed understanding and agreement. All questions were answered. Heparin 5000 units SQ twice daily for DVT prophylaxis Ambulate hallways TID with assistance EPCDs to bilateral lower extremities for DVT prophylaxis History of Present Illness Chief complaint: Abdominal pain HPI: Mr. Givens is a 62 year old male with multiple comorbidities who presents to the ED today with complaints of a 2 day history of abdominal pain. He states that the pain is located in his mid abdomen and radiates into his lower abdomen. He states that it has been persistent since yesterday. He reports multiple episodes of nausea/vomiting yesterday. Denies any hematemesis of coffee ground emesis. He states that he has not had a normal bowel movement for 5 days. He did pass a small amount of liquid yesterday with flatus. Denies any melena or hematochezia. He admits to having similar symptoms in the past on multiple occasions. He denies any difficulty with urination however he admits to decreased urination. Denies any fevers/chills. He reports that his blood sugars have been all over the place and as high as 400 the past few days. Denies any chest pains. Admits to occasional shortness of breath. He has had a CT scan which shows evidence of an incarcerated hernia with a partial small bowel obstruction. Last meal was approximately 36 hours ago. Past Med Surg Social [facility] HX - Past Medical History Source: patient, old records reviewed Medical history: coronary artery disease, CVA, diabetes, hyperlipidemia, hypertension, peripheral artery disease, RA, other (Vitamin D deficiency, Vitamin B12 deficiency, Iron deficiency, Low back pain) Additional medical history: arterial sclerosis Psychiatric history: anxiety, depression, PTSD - Past Surgical History Surgical History: angioplasty/stent, cholecystectomy, herniorrhaphy (Incisional (last repair approximately 2010)), other (Reports a history of exploratory laparotomy with small bowel resection) Additional surgical history: SBO, hernia - Social History Smoking Status: Never smoker Smokeless Tobacco Status: No Alcohol use: none Drug use: none Current living situation: Home - Independent Activity Level: Independent ambulation - Family History Mother Living Status: Hx Family Cardiac Disorders: Yes Hx Family Endocrine Disorder: Yes (DM) Father Living Status: Hx Family Cardiac Disorders: Yes Medications and Allergies Acetaminophen [Tylenol] 650 mg PO TID PRN 11/30/17 [History] Aspirin [Ecotrin] 325 mg PO DAILY 11/30/17 [History] Cholecalciferol (D-3) [Vitamin D] 2,000 unit PO DAILY 11/30/17 [History] Docusate Sodium [Stool Softener] 200 mg PO DAILY 11/30/17 [History] Duloxetine HCl [Cymbalta] 60 mg PO DAILY 11/30/17 [History] Gabapentin [Neurontin] 800 mg PO TID 11/30/17 [History] Insulin ASPART [NovoLOG] 16 unit SQ QAM 11/30/17 [History] Insulin ASPART [NovoLOG] 18 unit SQ QPM 11/30/17 [History] Insulin Glargine,Hum.rec.anlog [Lantus Solostar] 70 units SQ QAM 11/30/17 [ History] Lidocaine [Lidocaine Pain Relief] 1 patch TP DAILY 11/30/17 [History] Lisinopril [Zestril] 20 mg PO DAILY 11/30/17 [History] Meclizine HCl [Verticalm] 25 mg PO BID 11/30/17 [History] Meloxicam [Mobic] 7.5 mg PO BID 11/30/17 [History] Methocarbamol [Robaxin] 500 mg PO Q8HR 11/30/17 [History] Metoprolol [Lopressor] 25 mg PO BID 11/30/17 [History] Moxifloxacin OPTH Drops [Vigamox] 1 drop OP QID 11/30/17 [History] NIFEdipine [Nifedipine ER] 30 mg PO DAILY 11/30/17 [History] Polyethylene Glycol 3350 [MiraLAX] 17 gm PO DAILY 11/30/17 [History] PrednisoLONE Acetate [Pred Forte] 1 drop OP Q2H 11/30/17 [History] Sennosides [Senna] 8.6 mg PO DAILY 11/30/17 [History] 3 Allergy/AdvReac Type Severity Reaction Status Date / Time metformin AdvReac Nausea Verified 11/30/17 16:43 bleach Allergy Hives Uncoded 11/30/17 16:43 Review of Systems All systems PM: reviewed and no additional remarkable complaints except as stated (in the HPI) All systems PM: The remainder of the systems were reviewed and are negative General Surgery Exam Initial Vital Signs Temp Pulse Resp BP Pulse Ox 98.0 F 88 17 143/80 96 11/30/17 13:52 11/30/17 13:52 11/30/17 13:52 11/30/17 13:52 11/30/17 13:52 - General physical appearance well developed, well nourished, moderate pain, chronically ill - Eyes normal ocular movement - ENT normal mucosa, atraumatic, normocephalic - Neck trachea midline - Respiratory normal expansion, normal respiratory effort, clear to auscultation - Cardiovascular Cardiovascular exam: Present: RRR - Abdomen Abdomen general surgery: Present: bowel sounds present, soft, tender Abdominal Tenderness: Present: diffusely Hernia: Present: incarcerated, incisional - Integumentary Integumentary general surgery: Present: warm and dry - Neurologic Present: CN 2-12 grossly intact - Psychiatric Psychiatric general surgery: Present: appropriate, oriented to person, oriented to place, oriented to time, speech is normal, memory intact Results - Labs 11/30/17 14:51 11/30/17 14:51 Abnormal lab results RBC 3.85 M/mcL (4.19-5.50) L 11/30/17 14:51 Hgb 10.9 g/dL (12.9-16.9) L 11/30/17 14:51 Hct 32.8 % (37.5-50.1) L 11/30/17 14:51 Potassium 3.4 mEq/L (3.5-5.1) L 11/30/17 14:51 Glucose 127 mg/dL (70-105) H 11/30/17 14:51 All other labs normal. - Imaging Additional studies: Abdomen/Pelvis CT 11/30/17 14:10 IMPRESSION: 4 cm anterior abdominal wall hernia left of midline containing a partially obstructed small bowel loop felt to be etiology of partial mechanical small bowel obstruction. Stable 2 cm nodular enlargement left adrenal gland -likely representing benign adenoma. RECOMMENDATIONS: Surgical consultation for anterior abdominal wall hernia suspected as etiology of partial mechanical small bowel obstruction. D/ / Noble Dover MD / Noble Dover MD Interpreting Provider: Noble Dover MD - Attending Attestation For this encounter, I have reviewed the TELEMARKETING SALES REPRESENTATIVE or PA documentation, treatment plan, and medical decision making; and I have had face to face time with this patient.
--- NOTE | 2017-11-30 17:08 | Anesthesia Evaluation PreOp ---
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 History: CVA, Other (anxiety/Depression, PTSD) Other Medical History: Diabetes Type II Anesthesia History: No Prior Anesthetic Complications, Past Anesthesia ( cholecystectomy,exploratory laparotomy x3 for SBO, last was in 2012) Alcohol Use: none Drug use: none Medications and Allergies Acetaminophen [Tylenol] 650 mg PO TID PRN 11/30/17 [History] Aspirin [Ecotrin] 325 mg PO DAILY 11/30/17 [History] Cholecalciferol (D-3) [Vitamin D] 2,000 unit PO DAILY 11/30/17 [History] Docusate Sodium [Stool Softener] 200 mg PO DAILY 11/30/17 [History] Duloxetine HCl [Cymbalta] 60 mg PO DAILY 11/30/17 [History] Gabapentin [Neurontin] 800 mg PO TID 11/30/17 [History] Insulin ASPART [NovoLOG] 16 unit SQ QAM 11/30/17 [History] Insulin ASPART [NovoLOG] 18 unit SQ QPM 11/30/17 [History] Insulin Glargine,Hum.rec.anlog [Lantus Solostar] 70 units SQ QAM 11/30/17 [ History] Lidocaine [Lidocaine Pain Relief] 1 patch TP DAILY 11/30/17 [History] Lisinopril [Zestril] 20 mg PO DAILY 11/30/17 [History] Meclizine HCl [Verticalm] 25 mg PO BID 11/30/17 [History] Meloxicam [Mobic] 7.5 mg PO BID 11/30/17 [History] Methocarbamol [Robaxin] 500 mg PO Q8HR 11/30/17 [History] Metoprolol [Lopressor] 25 mg PO BID 11/30/17 [History] Moxifloxacin OPTH Drops [Vigamox] 1 drop OP QID 11/30/17 [History] NIFEdipine [Nifedipine ER] 30 mg PO DAILY 11/30/17 [History] Polyethylene Glycol 3350 [MiraLAX] 17 gm PO DAILY 11/30/17 [History] PrednisoLONE Acetate [Pred Forte] 1 drop OP Q2H 11/30/17 [History] Sennosides [Senna] 8.6 mg PO DAILY 11/30/17 [History] 3 Allergy/AdvReac Type Severity Reaction Status Date / Time metformin AdvReac Nausea Verified 11/30/17 16:43 bleach Allergy Hives Uncoded 11/30/17 16:43 - Meds/Allergy Pre-op Review Medications Reviewed: Yes Allergies Reviewed: Yes Beta Blockers on Current Med List: No Anesthesia Results - Labs 11/30/17 14:51 11/30/17 14:51 Echo 08/14/15 EF-60% Patent Foramen Oval No sign. Valvular dx. Date of Study: 01/28/2015 Impressions: LVEF 55-60%. No pulmonary hypertension. PFO with right to left shunt by agitated saline. Left Ventricular Wall Motion: Rest Echo Findings All wall segments showed normal motion. - Imaging EKG: report reviewed (SINUS RHYTHM BORDERLINE LEFT AXIS DEVIATION) Anesthesia Exam O2 Sat Height 1.88 m Weight 108.862 kg O2 Sat by Pulse Oximetry 96 O2 Sat by Pulse Oximetry 96 Vital Signs Temp Pulse Resp BP Pulse Ox 98.0 F 88 17 143/80 96 11/30/17 13:52 11/30/17 13:52 11/30/17 13:52 11/30/17 13:52 11/30/17 13:52 NPO (# of Hours): > 8 hrs Pain Scale: 0 Pain Scale Used: Numeric (1 - 10) - HEENT Pupil (Motor): Pupils equal, EOMI Mallampati: II Teeth: Edentulous Oral Opening: Greater than 3 - ECHOCARDIOGRAPHY RADIOLOGY TECHNOLOGIST LOC: Oriented ECHOCARDIOGRAPHY RADIOLOGY TECHNOLOGIST Motor: Normal RUE, Normal LUE, Normal RLE, Normal LLE, Normal Face ECHOCARDIOGRAPHY RADIOLOGY TECHNOLOGIST Sensory: Normal: RUE, LUE, RLE, LLE, Face - Cardiac Rhythm: Regular Murmur: None JVD: No Carotid Bruit: No - Pulmonary Breath Sounds: bilateral Clear Respiratory Effort: Symmetrical Anesthesia Assess/Plan ASA Score: 3 Modified [place] Scale for Level of Consciousness: Cooperative, oriented, and tranquil Anesthetic Plan: General Autologous Blood: Yes Monitoring Plan: Standard Monitors Recovery Plan: PACU
[2017-11-30] MEDS ORDERED: *HR* Propofol 200 MG/20 ML VIAL IVP ONE ×2 (17:15→18:55)
[2017-11-30] MEDS ORDERED: *HR* FentaNYL (PF) 100 MCG/2 ML VIAL ONE ×3 (17:15→18:57)
[2017-11-30] MEDS ORDERED: *HR* Midazolam HCl 2 MG/2 ML VIAL ONE (17:15)
[2017-11-30] MEDS ORDERED: *HR* Succinylcholine 200 MG/10 ML VIAL IVP ONE (17:16)
[2017-11-30] MEDS ORDERED: Lidocaine -MPF 2% 2 ML VIAL ONE (17:16)
[2017-11-30] MEDS ORDERED: Dexamethasone 4 MG/ML VIAL ONE (17:16)
[2017-11-30] MEDS ORDERED: Ondansetron 4 MG/2 ML VIAL ONE (17:16)
[2017-11-30] MEDS ORDERED: *HR* Rocuronium Bromide 50 MG/5 ML VIAL ONE (17:16)
[2017-11-30] MEDS ORDERED: Naloxone 0.4 MG/ML INJ IVP PRN ×2 (17:18→20:19)
[2017-11-30] MEDS ORDERED: Ondansetron 4 MG/2 ML VIAL IVP PRN ×2 (17:18→20:19)
[2017-11-30] MEDS ORDERED: Dextrose Gel 15 GM/37.5 ML TUBE PO PRN ×4 (17:22→20:19)
[2017-11-30] MEDS ORDERED: D5% in Water 1,000 ML IVC PRN (17:22)
[2017-11-30] MEDS ORDERED: *HR* Dextrose 50 % in Water (Syg) 50 ML SYRINGE IVP PRN ×2 (17:22→20:19)
[2017-11-30] MEDS ORDERED: MORPHINE SUL Oral CONC 10 MG/0.5 ML ORAL.SYG PO PRN ×2 (17:24→20:19)
[2017-11-30] MEDS ORDERED: OXYCODONE Oral CONC 10 MG/0.5 ML ORAL.SYG SL PRN ×2 (17:24→17:25)
[2017-11-30] MEDS ORDERED: 0.9 % Sodium Chloride 1,000 ML IVC SCH (17:30)
[2017-11-30] MEDS ORDERED: Insulin LISPRO 300 UNITS/3 ML VIAL SQ SCH (18:00)
[2017-11-30] MEDS ORDERED: *HR* Metoprolol 5 MG/5 ML VIAL IVP SCH (18:00)
[2017-11-30] MEDS ORDERED: *HR* PHENYLEPHRINE 1,000 MCG/10 ML SYRINGE IVP ONE (18:16)
[2017-11-30] MEDS ORDERED: *HR* HYDROmorphone (PF) 1 MG/ML SYRINGE IVP PRN (18:21)
[2017-11-30] MEDS ORDERED: *HR* Labetalol 20 MG/4 ML SYRINGE IVP PRN (18:21)
[2017-11-30] MEDS ORDERED: *HR* OxyCODONE Immed Rel 5 MG TABLET PO PRN (18:21)
[2017-11-30] MEDS ORDERED: *HR* Promethazine 25 MG/ML VIAL IVP PRN ×2 (18:21→20:19)
[2017-11-30] MEDS ORDERED: Ketorolac 30 MG/ML VIAL ONE (18:47)
--- NOTE | 2017-11-30 19:05 | Operative Note ---
Date of procedure: 11/30/17 Pre-op diagnosis: Incarcerated non-strangulated incisional hernia with associated bowel obstr Post-op diagnosis: same Procedure: Robotic lysis of adhesions 35 minutes and incisional hernia repair with 12 cm mesh Anesthesia: ARNALDO Surgeon: Michael Bains Was there an instructional support assistant present: Yes Post Doctoral Researcher: Clarice Nagy Estimated blood loss (cc): 5 Specimen: 0 Condition: stable Disposition: same day Procedure in Detail: After informed consent, the patient was taken the operating room placed in supine position. After adequate sedation and anesthesia the patient's abdomen was prepped and draped. A proper timeout was performed. A 12 mm incision was made on the patient's left abdomen at the level of the umbilicus in the posterior axillary line. Two 8 mm cannulas were placed in the left upper quadrant and left lower quadrant. Once in place, a caduet grasper and robotic scissors were used to reduce the incarcerated tissue from the midline hernia. A lysis of adhesions 30 minutes was required. A 12 cm symbotex mesh was loaded into the abdomen. The robot was docked over the patient's right hip. The robotic arms were connected to the port sites. A robotic grasper and needle route salesman and driver was inserted. The mesh was then situated over the defect and it was sewn to the abdominal wall with an 0 ethibond suture in running fashion. Once completed, the needles were retrieved. The abdomen was deflated and the port sites were removed the 12 mm cannula site was closed with an 0 Vicryl suture in [id number] fashion. The skin was closed with 4-0 Vicryl suture. Dermabond was placed. One half percent Marcaine 30 mL's were placed in the incision sites. The patient tolerated the procedure well. All instrument counts and needle counts were correct at the end of the case.
--- NOTE | 2017-11-30 19:45 | Anesthesia Evaluation Post Op ---
Date of Encounter: 11/30/17 Time of Encounter: 19:43 - Vital Signs Vital Signs: Vital Signs/O2 Sat, Most Current Temp Pulse Resp BP Pulse Ox 98.6 F 91 16 145/80 93 11/30/17 19:36 11/30/17 19:36 11/30/17 19:36 11/30/17 19:36 11/30/17 19:36 - Lungs Lungs: Clear Ascult./Percussion - Airway Airway: Non-obstructed - Cardiovascular Regular Rate - Mental Status Mental Status: Asleep with brisk response to light stimulation - Pain Pain Scale used: Sandra (Faces) (appears comfortable) - Nausea Vomiting Nausea Vomiting: Not Present - Hydration Hydration: NPO, Tolerates oral liquids - Discharge PostOp Status: Transfer Patient to floor
[2017-11-30] MEDS ORDERED: Ketorolac 15 MG/ML VIAL IVP PRN (20:19)
[2017-11-30] MEDS: 0.9 % Sodium Chloride 1,000 ML IVC SCH (22:19)
[2017-12-01] MEDS: Insulin LISPRO 300 UNITS/3 ML VIAL SQ SCH ×3 (01:01→12:27)
[2017-12-01] MEDS: OXYCODONE Oral CONC 10 MG/0.5 ML ORAL.SYG SL PRN ×2 (04:33→12:26)
[2017-12-01] MEDS: *HR* Metoprolol 5 MG/5 ML VIAL IVP SCH ×3 (05:47→11:32)
[2017-12-01] MEDS ORDERED: *HR* Heparin 5,000 UNIT/ML VIAL SQ SCH ×2 (06:00)
[2017-12-01 06:59] LABS: Basophils % 0.1 %; Hematocrit 33.9 % (37.5-50.1); Hemoglobin 11.2 g/dL (12.9-16.9); Immature Granulocytes % 0.5 % (0-4); Lymphocytes # 0.9 K/mcL (0.6-4.6); Lymphocytes % 11.1 %; Mean Corpuscular Hemoglobin 28.6 pg (28.0-33.3); Mean Corpuscular Volume 86.7 fL (83.0-100.0); Mean Platelet Volume 11.1 fL (9.4-12.4); Monocytes # 0.2 K/mcL (0.0-1.3); Monocytes % 2.8 %; Neutrophils # 6.9 K/mcL (1.6-8.9); Platelet Count 182 K/mcL (140-400); Red Blood Count 3.91 M/mcL (4.19-5.50); Red Cell Distribution Width 12.9 % (11.5-14.5); Segmented Neutrophils % 85.5 %
[2017-12-01 07:24] LABS: BUN/Creatinine Ratio 16 (6-26); Blood Urea Nitrogen 21 mg/dL (8-23); Calcium 8.1 mg/dL (8.6-10.3); Carbon Dioxide 23 mEq/L (23-29); Chloride 107 mEq/L (98-107); Glucose 252 mg/dL (70-105); Osmolality,Calculated 298 (280-300); Potassium 4.3 mEq/L (3.5-5.1); Sodium 138 mEq/L (136-145); eGFR For African Americans > 60 (> 60); eGFR For Non-African Americans 56 (> 60)
[2017-12-01] MEDS ORDERED: Pantoprazole 40 MG VIAL IVP SCH ×2 (09:00)
[2017-12-01] MEDS: 0.9 % Sodium Chloride 1,000 ML IVC SCH (09:10)
[2017-12-01 11:30] VITALS: BP 151/85
--- NOTE | 2017-12-01 13:38 | Discharge Summary ---
Date of Encounter: 12/01/17 Time of Encounter: 13:30 - Discharge Diagnosis (1) Abdominal wall hernia Priority: Primary Status: Resolved (2) Partial small bowel obstruction Priority: Primary Status: Resolved (3) HTN (hypertension) Priority: Secondary Status: Chronic Qualifiers: Hypertension type: essential hypertension Qualified Code(s): I10 - Essential (primary) hypertension (4) Diabetes Priority: Secondary Status: Chronic Qualifiers: Diabetes mellitus type: type 2 Diabetes mellitus longterm insulin use: with longterm use Diabetes mellitus complication status: with hyperglycemia Qualified Code(s): E11.65 - Type 2 diabetes mellitus with hyperglycemia; Z79.4 - 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 transplanted heart: [place] heart Associated angina: without angina Qualified Code(s): I25.10 - Atherosclerotic heart disease of [place] coronary artery without angina pectoris General Surgery Exam Initial Vital Signs Temp Pulse Resp BP Pulse Ox 98.0 F 88 17 143/80 96 11/30/17 13:52 11/30/17 13:52 11/30/17 13:52 11/30/17 13:52 11/30/17 13:52 - General physical appearance well developed, well nourished, no distress - Eyes normal ocular movement - ENT normal mucosa, atraumatic, normocephalic - Neck trachea midline - Respiratory normal respiratory effort, clear to auscultation - Cardiovascular Cardiovascular exam: Present: RRR - Abdomen Abdomen general surgery: Present: bowel sounds present, soft, tender (Expected postoperative tenderness) - Incision Incision: Present: clean and dry, intact - Integumentary Integumentary general surgery: Present: warm and dry - Neurologic Present: CN 2-12 grossly intact - Psychiatric Psychiatric general surgery: Present: A&Ox3 - Hospital Course Hospital course: Mr. Givens is a 62 year old male who presented to the emergency department with complaints of an incarcerated incisional hernia with a partial small bowel obstruction. The patient was admitted to the hospital and taken to the operating room for a robotic-assisted incisional hernia repair and lysis of adhesions. On postoperative day #1, the patient is passing flatus without difficulty. His postoperative pain is controlled. His vital signs are stable and he is afebrile. He is voiding and ambulating without difficulty. We will begin discharge planning to home and plan for outpatient follow-up in the next week. - Time Spent with Patient Total time spent providing and/or coordinating discharge services: Less than 30 minutes - Discharge Medications Prescriptions: OxyCODONE/APAP 5/325 [Percocet 5/325 MG] 1 each PO Q6HR PRN 7 Days #28 tablet PRN Reason: Pain Home Medications: Acetaminophen [Tylenol] 650 mg PO TID PRN 11/30/17 [History] Aspirin [Ecotrin] 325 mg PO DAILY 11/30/17 [History] Cholecalciferol (D-3) [Vitamin D] 2,000 unit PO DAILY 11/30/17 [History] Docusate Sodium [Stool Softener] 200 mg PO DAILY 11/30/17 [History] Duloxetine HCl [Cymbalta] 60 mg PO DAILY 11/30/17 [History] Gabapentin [Neurontin] 800 mg PO TID 11/30/17 [History] Insulin ASPART [NovoLOG] 16 unit SQ QAM 11/30/17 [History] Insulin ASPART [NovoLOG] 18 unit SQ QPM 11/30/17 [History] Insulin Glargine,Hum.rec.anlog [Lantus Solostar] 70 units SQ QAM 11/30/17 [ History] Lidocaine [Lidocaine Pain Relief] 1 patch TP DAILY 11/30/17 [History] Lisinopril [Zestril] 20 mg PO DAILY 11/30/17 [History] Meclizine HCl [Verticalm] 25 mg PO BID 11/30/17 [History] Meloxicam [Mobic] 7.5 mg PO BID 11/30/17 [History] Methocarbamol [Robaxin] 500 mg PO Q8HR 11/30/17 [History] Metoprolol [Lopressor] 25 mg PO BID 11/30/17 [History] Moxifloxacin OPTH Drops [Vigamox] 1 drop OP QID 11/30/17 [History] NIFEdipine [Nifedipine ER] 30 mg PO DAILY 11/30/17 [History] Polyethylene Glycol 3350 [MiraLAX] 17 gm PO DAILY 11/30/17 [History] PrednisoLONE Acetate [Pred Forte] 1 drop OP Q2H 11/30/17 [History] Sennosides [Senna] 8.6 mg PO DAILY 11/30/17 [History] OxyCODONE/APAP 5/325 [Percocet 5/325 MG] 1 each PO Q6HR PRN 7 Days #28 tablet [Rx] Allergies/Adverse Reactions: 3 Allergy/AdvReac Type Severity Reaction Status Date / Time metformin AdvReac Nausea Verified 11/30/17 16:43 bleach Allergy Hives Uncoded 11/30/17 16:43 Date of admission: 11/30/17 16:40 Primary care physician: PCP [place] Discharging clinician: Michael Bains (Madisyn White) Anticipated date of discharge: 12/01/17 Labs on day of discharge: Labs from last 24 hours 12/01/17 12/01/17 12/01/17 07:25 06:24 06:24 WBC 8.1 RBC 3.91 L Hgb 11.2 L Hct 33.9 L MCV 86.7 MCH 28.6 MCHC 33.0 RDW 12.9 Plt Count 182 MPV 11.1 Immature Gran % 0.5 Seg Neutrophils % 85.5 Lymphocytes % 11.1 Monocytes % 2.8 Eosinophils % 0.0 Basophils % 0.1 Neutrophils # 6.9 Lymphocytes # 0.9 Monocytes # 0.2 Eosinophils # 0.0 Basophils # 0.0 Sodium 138 Potassium 4.3 D Chloride 107 Carbon Dioxide 23 BUN 21 Creatinine 1.29 Est GFR ( Amer) > 60 Est GFR (Non-Af Amer) 56 L BUN/Creatinine Ratio 16 Glucose 252 H POC Glucose 227 H Calculated Osmolality 298 Calcium 8.1 L 12/01/17 12/01/17 05:33 00:37 WBC RBC Hgb Hct MCV MCH MCHC RDW Plt Count MPV Immature Gran % Seg Neutrophils % Lymphocytes % Monocytes % Eosinophils % Basophils % Neutrophils # Lymphocytes # Monocytes # Eosinophils # Basophils # Sodium Potassium Chloride Carbon Dioxide BUN Creatinine Est GFR ( Amer) Est GFR (Non-Af Amer) BUN/Creatinine Ratio Glucose POC Glucose 231 H 253 H Calculated Osmolality Calcium - Patient Status Disposition: Home, Self-Care Condition: Good Functional capacity at discharge: independent ambulation Overall status at discharge: patient is progressing back to baseline - Discharge Instructions [facility] With[facility] - Monserrat White STACK YIELD ENGINEER [Advanced Practice Nurse] - 12/08/17 8:45 am (Surgery follow-up) Forms: ED Satisfaction Letter, Work/School Release Additional Instructions: #1 may shower, no tub bath for 2 weeks #2 wash incisions with soap and water and pat dry daily #3 no lifting, pushing, pulling more than 15 pounds for the next 4 weeks #4 no driving until off narcotics for 24 hours and able to safely react in the car #5 may climb stairs - Diet and Activity Activity: other (See additional instuctions above) Diet: advance to your usual diet - Attending Attestation For this encounter, I have reviewed the POINT OF CARE SPECIALIST or PA documentation, treatment plan, and medical decision making; and I have had face to face time with this patient.
== END 2017-12-01 16:25 | disposition home or self-care (01) | DRG 355 ==
LOC: EMEROO 13:37 → 3ANU 16:40
PROVIDERS: ADMIT Surgery; ATTEND Surgery

== ENCOUNTER 2017-12-16 16:41 | Inpatient (IN) ==
--- NOTE | 2017-12-16 17:23 | Emergency Department Note ---
Disposition Clinical Impression: Abdominal pain Qualifiers: Abdominal location: unspecified location Qualified Code(s): R10.9 - Unspecified abdominal pain Disposition: Admitted As Inpatient Condition: Fair Time of Disposition: 19:00 Abdominal Pain HPI - General Stated Complaint: Abdominal Pain Time Seen by Provider: 12/16/17 16:47 Source: patient, family, EMS - History of Present Illness HPI Narrative: 62-year-old male with past medical history of CVA, CAD, insulin-dependent diabetes with peripheral neuropathy, hypertension, anxiety, low back pain. He presents today complaining of abdominal distention and pain. On 11/30/17 he had robotic surgical repair of an incarcerated incisional hernia with a partial small bowel obstruction and lysis of adhesions. No he tells me the following discharge from the hospital he did well and was having regular bowel movements until 5 days ago when he began feeling constipated and has been experiencing worsening abdominal bloating and pain. He is passing small amount of flatus and is belching frequently. He was having significant nausea without vomiting and received antinausea medication at the [facility] which helped with this. The patient tells me he has had multiple episodes of small bowel obstruction in the past I reviewed the patient's medical records from the [facility] and these show normal AST/ ALT, bilirubin is not elevated, sodium and potassium (4.3) are normal. Glucose is elevated at 340 (patient tells me he skipped his insulin today because he was feeling lousy), white blood cells within normal range at 10.3. UA shows signs of urinary tract infection with positive leukocyte esterase and > 180 WBCs as well as trace blood. He is c/o urinary urgency, frequency, and dysuria Pain Scale: 4 - Related Data Home Medications Medication Instructions Recorded Confirmed Acetaminophen [Tylenol] 650 mg PO TID PRN 11/30/17 11/30/17 Aspirin [Ecotrin] 325 mg PO DAILY 11/30/17 11/30/17 Cholecalciferol (D-3) [Vitamin D] 2,000 unit PO DAILY 11/30/17 11/30/17 Docusate Sodium [Stool Softener] 200 mg PO DAILY 11/30/17 11/30/17 Duloxetine HCl [Cymbalta] 60 mg PO DAILY 11/30/17 11/30/17 Gabapentin [Neurontin] 800 mg PO TID 11/30/17 11/30/17 Insulin ASPART [NovoLOG] 16 unit SQ QAM 11/30/17 11/30/17 Insulin ASPART [NovoLOG] 18 unit SQ QPM 11/30/17 11/30/17 Insulin Glargine,Hum.rec.anlog 70 units SQ QAM 11/30/17 11/30/17 [Lantus Solostar] Lidocaine [Lidocaine Pain Relief] 1 patch TP DAILY 11/30/17 11/30/17 Lisinopril [Zestril] 20 mg PO DAILY 11/30/17 11/30/17 Meclizine HCl [Verticalm] 25 mg PO BID 11/30/17 11/30/17 Meloxicam [Mobic] 7.5 mg PO BID 11/30/17 11/30/17 Methocarbamol [Robaxin] 500 mg PO Q8HR 11/30/17 11/30/17 Metoprolol [Lopressor] 25 mg PO BID 11/30/17 11/30/17 Moxifloxacin OPTH Drops [Vigamox] 1 drop OP QID 11/30/17 11/30/17 NIFEdipine [Nifedipine ER] 30 mg PO DAILY 11/30/17 11/30/17 Polyethylene Glycol 3350 [MiraLAX] 17 gm PO DAILY 11/30/17 11/30/17 PrednisoLONE Acetate [Pred Forte] 1 drop OP Q2H 11/30/17 11/30/17 Sennosides [Senna] 8.6 mg PO DAILY 11/30/17 11/30/17 Previous Rx's Medication Instructions Recorded OxyCODONE/APAP 5/325 [Percocet 1 each PO Q6HR PRN 7 Days #28 12/01/17 5/325 MG] tablet Allergies Allergy/AdvReac Type Severity Reaction Status Date / Time metformin AdvReac Nausea Verified 11/30/17 16:43 bleach Allergy Hives Uncoded 11/30/17 16:43 Constitutional: Denies: fever, chills, weakness, weight change Eyes: Denies: eye pain, eye discharge, vision change ENT ED: Denies: ear pain, throat pain, dental pain, hearing loss, epistaxis, congestion, dysphagia Cardiovascular: Denies: chest pain, palpitations, dyspnea on exertion, edema, syncope Respiratory: Denies: cough, dyspnea, wheezes, hemoptysis, stridor Gastrointestinal: Reports: abdominal pain, nausea. Denies: vomiting, hematemesis, melena, hematochezia Genitourinary: Reports: urgency, dysuria, frequency. Denies: hematuria, discharge Musculoskeletal: Reports: back pain (chronic, unchanged) Integumentary: Denies: rash, abrasion, lesions Neurological: Denies: headache, weakness, numbness, paresthesias, confusion, abnormal gait, vertigo Abdominal Pain PMH - Past Medical History Medical history: Reports: coronary artery disease, CVA, diabetes, hyperlipidemia , hypertension, peripheral artery disease, RA, other Male Surgical History: Reports: cholecystectomy Psychiatric history: Reports: anxiety, depression, PTSD - Social History Smoking status: Never smoker Alcohol use: Reports: none Drug use: Reports: none Physical Exam - General Limitations: no limitations General appearance: alert, in no apparent distress - Head Head exam: atraumatic, normocephalic, normal inspection - Eye Eye exam: Present: normal appearance, PERRL, EOMI - ENT ENT exam: normal exam, normal oropharynx, mucous membranes moist - Neck Neck exam: Present: normal inspection, full ROM, trachea midline - Chest Chest inspection: Present: normal inspection, symmetric chest wall rise - Respiratory Respiratory exam: Present: normal lung sounds bilaterally - Cardiovascular Cardiovascular exam: Present: regular rate, normal rhythm, normal heart sounds - Abdominal Exam Abdominal exam: Present: tenderness, distention, rebound, hyperactive bowel sounds Abdominal tenderness: Present: diffuse - Extremities Exam Extremities exam: Present: normal inspection, full ROM. Absent: tenderness, pedal edema - Neurological Exam Neurological exam: Present: alert, oriented X3 Course Vital Signs Temperature 98 F 12/16/17 16:44 Pulse Rate 74 12/16/17 16:44 Respiratory Rate 18 12/16/17 16:44 Blood Pressure 176/90 12/16/17 16:44 O2 Sat by Pulse Oximetry 98 12/16/17 16:44 Temperature 98 F 12/16/17 16:44 Pulse Rate 74 12/16/17 16:44 Respiratory Rate 18 12/16/17 16:44 Blood Pressure 176/90 12/16/17 16:44 O2 Sat by Pulse Oximetry 98 12/16/17 16:53 Oxygen Delivery Oxygen Delivery Room Air Abdominal Pain - MDM Narrative Medical decision making narrative: [facility] radiologist report states no high-grade obstruction but there is a small segment of dilated small bowel and likely adhesions. Glucose elevated, patient skipped his insulin today. UA consistent with UTI and patient has symptoms as well. Will treat with IV abx as patient is NPO. Spoke with Dr. Holley general surgeon who recommends NG tube. I spoke with hospitalist Dr. Alexis who will accept the patient given he has a UTI - Medical Records Medical records reviewed: Yes I reviewed the patient's medical records. - Lab Data Lab results reviewed: Yes I reviewed the patient's lab results. - Radiology Data Radiology results reviewed: Yes I reviewed the patient's radiology results.
[2017-12-16] MEDS ORDERED: *HR* FentaNYL (PF) 100 MCG/2 ML VIAL IVP ONE (17:53)
[2017-12-16] MEDS ORDERED: Ondansetron 4 MG/2 ML VIAL IVP ONE (17:53)
[2017-12-16] MEDS ORDERED: cefTRIAXone 1,000 MG in Water for inj. (sterile) 20 ML 10 ML IVP ONE (18:09)
--- NOTE | 2017-12-16 18:18 | Internal Med History&Physical ---
Date of Encounter: 12/16/17 Time of Encounter: 18:14 Internal Medicine - H&P: HPI Chief complaint: Abdominal pain Admitted From: Emergency Dept Plans for Post Hospital Care: Home History of present illness: Mr. Givens is a 62 year old male with hx of IDDM, HTN, HLD, peripheral neuropathy, CAD s/p 6 stents who presents with abdominal pain. The patient was operated on on 11/30 for incarcerated non-strangulated incisional hernia and had robotic lysis of adhesion and incisional hernia repair with mesh. The patient did well postop and was discharged from the hospital after tolerating diet and having regular bowel movements. The patient says he again started having constipation and feeling abdominal bloating and pain. He is passing small amounts of flatus and is belching frequently. He had significant nausea without vomiting. He went to the [facility] where he received antinausea meds and was sent here. He had workup there that showed normal LFTs. Normal electrolytes. Glucose was elevated at 340. Normal WBC count of 10.3. His UA was indicative of UTI and he reports urgency, frequency and dysuria. A CT was done which showed dilated bowels but no obvious obstruction. Surgery were consulted and the ED and recommended an admission and NG tube placement and they will follow was consultants. Denies fever, chills, headache, blurry vision, chest pain, shortness of breath, or neurological symptoms. Past Med Surg Social Fam HX - Past Medical History Medical history: coronary artery disease, CVA, diabetes, hyperlipidemia, hypertension, peripheral artery disease, RA, other Additional medical history: arterial sclerosis Psychiatric history: anxiety, depression, PTSD - Past Surgical History Surgical History: angioplasty/stent, cholecystectomy, herniorrhaphy, other Additional surgical history: SBO, hernia - Social History Smoking Status: Never smoker Smokeless Tobacco Status: No Alcohol use: none Drug use: none - Family History Mother Living Status: Hx Family Cardiac Disorders: Yes Hx Family GI Disorders: Yes Hx Family Endocrine Disorder: Yes (diabetes) Father Living Status: Hx Family Cardiac Disorders: Yes Internal Medicine - H&P: Meds Acetaminophen [Tylenol] 650 mg PO TID PRN 11/30/17 [History] Aspirin [Ecotrin] 325 mg PO DAILY 11/30/17 [History] Cholecalciferol (D-3) [Vitamin D] 2,000 unit PO DAILY 11/30/17 [History] Docusate Sodium [Stool Softener] 200 mg PO DAILY 11/30/17 [History] Duloxetine HCl [Cymbalta] 60 mg PO DAILY 11/30/17 [History] Gabapentin [Neurontin] 800 mg PO TID 11/30/17 [History] Insulin ASPART [NovoLOG] 16 unit SQ QAM 11/30/17 [History] Insulin ASPART [NovoLOG] 18 unit SQ QPM 11/30/17 [History] Insulin Glargine,Hum.rec.anlog [Lantus Solostar] 70 units SQ QAM 11/30/17 [ History] Lidocaine [Lidocaine Pain Relief] 1 patch TP DAILY 11/30/17 [History] Lisinopril [Zestril] 20 mg PO DAILY 11/30/17 [History] Meclizine HCl [Verticalm] 25 mg PO BID 11/30/17 [History] Meloxicam [Mobic] 7.5 mg PO BID 11/30/17 [History] Methocarbamol [Robaxin] 500 mg PO Q8HR 11/30/17 [History] Metoprolol [Lopressor] 25 mg PO BID 11/30/17 [History] NIFEdipine [Nifedipine ER] 30 mg PO DAILY 11/30/17 [History] Atorvastatin [Lipitor] 40 mg PO HS 12/16/17 [History] 3 Allergy/AdvReac Type Severity Reaction Status Date / Time metformin AdvReac Nausea Verified 11/30/17 16:43 bleach Allergy Hives Uncoded 11/30/17 16:43 All Systems PM: A 10-system review of systems was performed and is negative for pertinent findings except as documented above in the HPI. Review of systems: All systems reviewed are negative except for as mentioned above - Constitutional Vitals: Temp Pulse Resp BP Pulse Ox 98 F 74 18 176/90 98 12/16/17 16:44 12/16/17 16:44 12/16/17 16:44 12/16/17 16:44 12/16/17 16:53 Exam: GEN: NAD HEENT: AT, NC, No cyanosis, oral mucosa is moist, No JVD Lymphatics: No lymphadenoapthy Eyes: Extrocular muscles intact, anicteric CVS:RRR. S1, S2, No m/r/g RESP: CTAB ABD: Soft, NT, ND, hypoactive bowel sounds EXT: No edema, No rashes, 2+ DP NEURO: Nonfocal, CN II-XII intact, No focal motor or sensory deficits Psych: Cooperative, Not anxious or depressed - Assessment and plan (1) Abdominal pain Current Visit: Yes Status: Acute Assessment and plan: Ileus versus obstruction. Surgery is consulted. NG tube to be placed. Continue conservative management. Nothing by mouth. IV fluids. Antiemetics. Pain control. Qualifiers: Abdominal location: generalized Qualified Code(s): R10.84 - Generalized abdominal pain (2) UTI (urinary tract infection) Current Visit: Yes Status: Acute Assessment and plan: We will place the patient on IV ceftriaxone. Follow up on cultures. Qualifiers: Urinary tract infection type: site unspecified Hematuria presence: without hematuria Qualified Code(s): N39.0 - Urinary tract infection, site not specified (3) CAD (coronary artery disease) Current Visit: No Status: Chronic Assessment and plan: Resume cardiac meds. Qualifiers: Coronary Disease-Associated Artery/Lesion type: [place] artery [place] vs. transplanted heart: [place] heart Associated angina: without angina Qualified Code(s): I25.10 - Atherosclerotic heart disease of [place] coronary artery without angina pectoris (4) Diabetes Current Visit: No Status: Chronic Assessment and plan: We will place patient on insulin size scale. Accu-Cheks. Resume basal insulin. 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 Blood pressure is elevated likely due to pain. Qualifiers: Hypertension type: essential hypertension Qualified Code(s): I10 - Essential (primary) hypertension (6) DVT prophylaxis Current Visit: No Status: Acute Assessment and plan: Heparin subcutaneous - Time Spent With Patient Total time spent is greater than 50% in coordination of care (as documented) at patient's floor/unit and/or counseling patient:
[2017-12-16] MEDS ORDERED: D5% in Water 1,000 ML IVC PRN (18:23)
[2017-12-16] MEDS ORDERED: Naloxone 0.4 MG/ML INJ IVP PRN (18:23)
[2017-12-16] MEDS ORDERED: *HR* Dextrose 50 % in Water (Syg) 50 ML SYRINGE IVP PRN (18:23)
[2017-12-16] MEDS ORDERED: Dextrose Gel 15 GM/37.5 ML TUBE PO PRN ×2 (18:23)
[2017-12-16] MEDS ORDERED: Acetaminophen 325 MG TABLET PO PRN (18:23)
[2017-12-16] MEDS: 0.9 % Sodium Chloride 1,000 ML IVC SCH (20:53)
[2017-12-16] MEDS: *HR* FentaNYL (PF) 100 MCG/2 ML VIAL IVP PRN (21:00)
[2017-12-16] MEDS: *HR* Heparin 5,000 UNIT/ML VIAL SQ SCH (21:05)
[2017-12-17] MEDS: *HR* FentaNYL (PF) 100 MCG/2 ML VIAL IVP PRN ×4 (00:15→20:48)
[2017-12-17] MEDS: Insulin LISPRO 300 UNITS/3 ML VIAL SQ SCH ×4 (00:34→19:12)
[2017-12-17 04:01] LABS: Basophils # 0.1 K/mcL (0.0-0.2); Basophils % 0.7 %; Eosinophils # 0.5 K/mcL (0.0-0.6); Eosinophils % 6.9 %; Hematocrit 31.5 % (37.5-50.1); Hemoglobin 10.4 g/dL (12.9-16.9); Immature Granulocytes % 0.4 % (0-4); Lymphocytes # 1.8 K/mcL (0.6-4.6); Lymphocytes % 24.3 %; Mean Corpuscular Hemoglobin 27.5 pg (28.0-33.3); Mean Corpuscular Volume 83.3 fL (83.0-100.0); Mean Platelet Volume 10.6 fL (9.4-12.4); Monocytes # 0.4 K/mcL (0.0-1.3); Monocytes % 5.1 %; Neutrophils # 4.6 K/mcL (1.6-8.9); Platelet Count 167 K/mcL (140-400); Red Blood Count 3.78 M/mcL (4.19-5.50); Red Cell Distribution Width 13.2 % (11.5-14.5); Segmented Neutrophils % 62.6 %
[2017-12-17 04:28] LABS: BUN/Creatinine Ratio 15 (6-26); Blood Urea Nitrogen 17 mg/dL (8-23); Calcium 8.8 mg/dL (8.6-10.3); Carbon Dioxide 25 mEq/L (23-29); Chloride 106 mEq/L (98-107); Glucose 174 mg/dL (70-105); Magnesium 1.7 mg/dL (1.6-2.6); Osmolality,Calculated 294 (280-300); Potassium 3.8 mEq/L (3.5-5.1); Sodium 139 mEq/L (136-145); eGFR For African Americans > 60 (> 60); eGFR For Non-African Americans > 60 (> 60)
[2017-12-17] MEDS: 0.9 % Sodium Chloride 1,000 ML IVC SCH ×2 (05:07→14:45)
[2017-12-17] MEDS: Ondansetron 4 MG/2 ML VIAL IVP PRN (05:10)
[2017-12-17] MEDS: *HR* Heparin 5,000 UNIT/ML VIAL SQ SCH ×3 (05:11→20:44)
[2017-12-17] MEDS: Insulin DETEMIR 100 UNIT/ML X5UNITS SQ SCH (09:15)
[2017-12-17] MEDS: cefTRIAXone 1,000 MG in Water for inj. (sterile) 20 ML 10 ML IVP SCH (09:15)
[2017-12-17] MEDS ORDERED: *HR* LORazepam 2 MG/ML VIAL IVP ONE (11:19)
[2017-12-17] MEDS ORDERED: OXYCODONE Oral CONC 10 MG/0.5 ML ORAL.SYG SL PRN (11:31)
--- NOTE | 2017-12-17 11:36 | Internal Med Progress Note ---
Date of Encounter: 12/17/17 Time of Encounter: 11:33 - Assessment and plan (1) UTI (urinary tract infection) Current Visit: Yes Status: Acute Assessment and plan: Currently on IV Ceftriaxone. Culture pending. Denies symptoms at this time. Qualifiers: Urinary tract infection type: acute cystitis Hematuria presence: without hematuria Qualified Code(s): N30.00 - Acute cystitis without hematuria (2) Abdominal pain Current Visit: Yes Status: Acute Assessment and plan: Continues to have significant pain at this time. Pain meds adjusted with addition of SL oxycodone. NG in place. Surgery to see for further evaluation. Qualifiers: Abdominal location: generalized Qualified Code(s): R10.84 - Generalized abdominal pain (3) HTN (hypertension) Current Visit: No Status: Chronic Assessment and plan: Blood pressure uncontrolled. Started IV metoprolol and enalaprilat. Monitoring. I suspect a big component is pain and anxiety. Qualifiers: Hypertension type: essential hypertension Qualified Code(s): I10 - Essential (primary) hypertension (4) Diabetes Current Visit: No Status: Chronic Assessment and plan: Uncontrolled. Currently NPO with accuchecks and coverage. 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 Resume PO meds when able. Qualifiers: Coronary Disease-Associated Artery/Lesion type: [place] artery [place] vs. transplanted heart: [place] heart Associated angina: without angina Qualified Code(s): I25.10 - Atherosclerotic heart disease of [place] coronary artery without angina pectoris - Time Spent With Patient Total time spent is greater than 50% in coordination of care (as documented) at patient's floor/unit and/or counseling patient: - Subjective Interval history: Mr Givens is currently admitted for abdominal pain concerning for ileus versus obstruction as well as UTI. He continues to have pain this morning. He has NG in place. He remains moderate to high risk due to potential for worsening clinical status. Mr Givens is having some spasmodic abdominal pain at this time. No fever. BP has been elevated. Some nausea. Pain seems to be worse at this time. He said it comes and goes and pain meds have not relieved it. - Constitutional Vitals: Temp Pulse Resp BP Pulse Ox 98.9 F 78 16 189/91 96 12/17/17 07:15 12/17/17 07:15 12/17/17 07:15 12/17/17 07:15 12/17/17 07:15 General appearance: Present: A&O X 3, answers questions appropriately Exam: Tearful - Head Head exam: Present: normocephalic - Eye Eye exam: Present: EOMI, conjuntiva pink - ENT ENT exam: Present: mucous membranes dry Additional comments: NG in place - Respiratory Respiratory exam: Present: CTAB. Absent: rales, rhonchi, wheezes - Cardiovascular Cardiovascular exam: Present: tachycardia Additional comments: regular and tachycardic - GI/Abdominal GI/Abdominal exam: Present: distended, hypoactive bowel sounds, tenderness ( Right upper abdomen), no peritoneal signs - Extremities Exam Extremities exam: Present: warm. Absent: tenderness - Neurological Exam Neurological exam: Present: alert, oriented X3 - Skin Skin exam: Present: dry, warm Internal Medicine: Result - Labs CBC & Chem 7: 12/17/17 03:14 12/17/17 03:14 Labs: Short CBC 12/17/17 Range/Units 03:14 WBC 7.4 (4.3-11.1) K/mcL Hgb 10.4 L (12.9-16.9) g/dL Hct 31.5 L (37.5-50.1) % Plt Count 167 (140-400) K/mcL Neutrophils # 4.6 (1.6-8.9) K/mcL BMP 12/17/17 03:14 Sodium 139 Potassium 3.8 Chloride 106 Carbon Dioxide 25 BUN 17 Creatinine 1.15 Glucose 174 H Calcium 8.8 Consult Discharge Plan - Plan Referrals: [facility] [Outside]
[2017-12-17] MEDS: *HR* Metoprolol 5 MG/5 ML VIAL IVP SCH ×2 (11:43→17:14)
[2017-12-17] MEDS: OXYCODONE Oral CONC 10 MG/0.5 ML ORAL.SYG SL PRN (12:01)
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
[2017-12-18] MEDS: Insulin LISPRO 300 UNITS/3 ML VIAL SQ SCH ×5 (00:34→23:33)
[2017-12-18] MEDS: OXYCODONE Oral CONC 10 MG/0.5 ML ORAL.SYG SL PRN ×3 (00:37→18:51)
[2017-12-18] MEDS: 0.9 % Sodium Chloride 1,000 ML IVC SCH ×3 (00:37→21:17)
[2017-12-18] MEDS: *HR* Metoprolol 5 MG/5 ML VIAL IVP SCH ×5 (00:37→23:33)
[2017-12-18] MEDS: *HR* Heparin 5,000 UNIT/ML VIAL SQ SCH ×3 (05:32→21:16)
[2017-12-18 06:05] LABS: Hematocrit 32.2 % (37.5-50.1); Hemoglobin 10.6 g/dL (12.9-16.9); Mean Corpuscular HGB Conc 32.9 g/dL (31.6-35.5); Mean Corpuscular Hemoglobin 28.2 pg (28.0-33.3); Mean Corpuscular Volume 85.6 fL (83.0-100.0); Mean Platelet Volume 11.1 fL (9.4-12.4); Platelet Count 174 K/mcL (140-400); Red Blood Count 3.76 M/mcL (4.19-5.50); Red Cell Distribution Width 13.3 % (11.5-14.5)
[2017-12-18 06:26] LABS: Alanine Aminotransferase 6 Units/L (7-52); Albumin 3.1 g/dL (3.5-5.7); Albumin/Globulin Ratio 1.1 (1.1-2.2); Alkaline Phosphatase 95 Units/L (34-104); Aspartate Amino Transferase 9 Units/L (13-39); BUN/Creatinine Ratio 11 (6-26); Bilirubin,Total 0.5 mg/dL (0.3-1.0); Blood Urea Nitrogen 12 mg/dL (8-23); Calcium 8.7 mg/dL (8.6-10.3); Carbon Dioxide 27 mEq/L (23-29); Chloride 109 mEq/L (98-107); Globulin 2.9 g/dL (2.4-3.5); Glucose 108 mg/dL (70-105); Magnesium 1.9 mg/dL (1.6-2.6); Osmolality,Calculated 298 (280-300); Potassium 3.8 mEq/L (3.5-5.1); Sodium 144 mEq/L (136-145); eGFR For African Americans > 60 (> 60); eGFR For Non-African Americans > 60 (> 60)
[2017-12-18] MEDS: cefTRIAXone 1,000 MG in Water for inj. (sterile) 20 ML 10 ML IVP SCH (08:24)
[2017-12-18] MEDS: Insulin DETEMIR 100 UNIT/ML X5UNITS SQ SCH (11:27)
[2017-12-18] MEDS: *HR* LORazepam 2 MG/ML VIAL IVP SCH (12:16)
--- NOTE | 2017-12-18 12:56 | General Surgery Progress Note ---
Date of Encounter: 12/18/17 Time of Encounter: 12:53 - Assessment and Plan (1) DVT prophylaxis Current Visit: No Status: Acute heparin sq (2) Nausea Current Visit: Yes Status: Acute prn antiemetics (3) Small bowel obstruction due to adhesions Current Visit: Yes Status: Acute patient not passed flatus or had bm overnight continued RLQ pain denies nausea asking for more than a few ice chips, ok popcicle TID serial abdominal exams continue conservative therapy with npo, prn pain control, ngt to liws, ambulate gi/dvt prophylaxis will order 2 view abdominal films Subjective Patient reports: no new complaints, still having pain, no flatus, no bowel movement, afebrile Narrative: still feels distended and complaining of RLQ pain Objective Vital Signs - Last 8 Hours Temp Pulse Resp BP Pulse Ox 12/18/17 11:49 98.4 F 84 16 204/110 94 12/18/17 07:26 98.6 F 71 15 188/86 97 Intake and Output 12/17/17 12/18/17 12/18/17 23:59 07:59 15:59 Intake Total 120 / 120 1000 / 1000 1000 / 1000 Output Total 1450 / 1450 1075 / 1075 Balance -1330 / -1330 -75 / -75 1000 / 1000 Intake: IV Fluids 1000 / 1000 1000 / 1000 0.9 % Sodium Chloride 1,000 ML 1000 / 1000 1000 / 1000 @ 100 mls/hr IVC .Q10H [facility] Rx#: [id number] Oral 120 / 120 0 / 0 0 / 0 Output: Urine 950 / 950 1075 / 1075 Gastric Drainage 500 / 500 0 / 0 Other: Meal npo NPO Breakfast # Voids 1 Weight 112.1 kg Blood Glucose* 107 122 Patient Weight 12/18/17 23:59 Weight 112.1 kg - General physical appearance well developed, well nourished, moderate distress, moderate pain - Eyes PERRL, normal ocular movement - ENT normal mucosa, normocephalic - Neck Neck exam: trachea midline - Respiratory normal expansion, clear to auscultation - Cardiovascular Cardiovascular exam: Present: RRR - Abdomen Abdomen: Present: tender. Absent: bowel sounds present, soft, distended, guarding, rebound Abdominal Tenderness: RLQ - Incision Incision: Present: clean and dry, intact - Integumentary no rash, no growths - Neurologic CN 2-12 grossly intact - Musculoskeletal normal posture - Psychiatric oriented to time, oriented to person, oriented to place, speech is normal, memory intact - Labs 12/18/17 05:16 12/18/17 05:16 Vital Signs Temp Pulse Resp BP Pulse Ox 12/18/17 11:49 98.4 F 84 16 204/110 94 12/18/17 07:26 98.6 F 71 15 188/86 97 12/18/17 03:32 98.0 F 74 16 172/81 96 12/17/17 23:20 98.3 F 78 17 180/73 95 12/17/17 19:31 98.2 F 76 15 171/84 96 12/17/17 15:49 97.3 F L 87 16 162/76 96 Intake and Output 12/17/17 12/18/17 12/18/17 23:59 07:59 15:59 Intake Total 120 / 120 1000 / 1000 1000 / 1000 Output Total 1450 / 1450 1075 / 1075 Balance -1330 / -1330 -75 / -75 1000 / 1000 Intake: IV Fluids 1000 / 1000 1000 / 1000 0.9 % Sodium Chloride 1,000 ML 1000 / 1000 1000 / 1000 @ 100 mls/hr IVC .Q10H [facility] Rx#: [id number] Oral 120 / 120 0 / 0 0 / 0 Output: Urine 950 / 950 1075 / 1075 Gastric Drainage 500 / 500 0 / 0 Other: Meal npo NPO Breakfast # Voids 1 Weight 112.1 kg Blood Glucose* 107 122 Patient Weight 12/18/17 23:59 Weight 112.1 kg Short CBC 12/18/17 Range/Units 05:16 WBC 6.5 (4.3-11.1) K/mcL Hgb 10.6 L (12.9-16.9) g/dL Hct 32.2 L (37.5-50.1) % Plt Count 174 (140-400) K/mcL BMP 12/18/17 Range/Units 05:16 Sodium 144 (136-145) mEq/L Potassium 3.8 (3.5-5.1) mEq/L Chloride 109 H (98-107) mEq/L Carbon Dioxide 27 (23-29) mEq/L BUN 12 (8-23) mg/dL Creatinine 1.11 (0.70-1.30) mg/dL Glucose 108 H (70-105) mg/dL Calcium 8.7 (8.6-10.3) mg/dL Liver Function 12/18/17 Range/Units 05:16 Total Bilirubin 0.5 (0.3-1.0) mg/dL AST 9 L (13-39) Units/L ALT 6 L (7-52) Units/L Alkaline Phosphatase 95 (34-104) Units/L Albumin 3.1 L (3.5-5.7) g/dL Consult Discharge Plan - Plan Referrals: [facility] [Outside]
--- NOTE | 2017-12-18 16:26 | Internal Med Progress Note ---
Date of Encounter: 12/18/17 Time of Encounter: 14:00 - Assessment and plan (1) UTI (urinary tract infection) Current Visit: Yes Status: Acute Assessment and plan: No culture results. Currently on IV Ceftriaxone. Qualifiers: Urinary tract infection type: acute cystitis Hematuria presence: without hematuria Qualified Code(s): N30.00 - Acute cystitis without hematuria (2) HTN (hypertension) Current Visit: No Status: Chronic Assessment and plan: Blood pressure uncontrolled. On enaliprilat and metoprolol. Will add hydralazine. Qualifiers: Hypertension type: essential hypertension Qualified Code(s): I10 - Essential (primary) hypertension (3) Abdominal pain Current Visit: Yes Status: Acute Assessment and plan: Continues to complain of pain. Appreciate surgical help. Qualifiers: Abdominal location: generalized Qualified Code(s): R10.84 - Generalized abdominal pain (4) Diabetes Current Visit: No Status: Chronic Assessment and plan: Better controlled today. Accuchecks and coverage. Qualifiers: Diabetes mellitus type: type 2 Diabetes mellitus shelter insulin use: with shelter use Diabetes mellitus complication status: with hyperglycemia Qualified Code(s): E11.65 - Type 2 diabetes mellitus with hyperglycemia; Z79.4 - roasterman (current) use of insulin (5) CAD (coronary artery disease) Current Visit: No Status: Chronic Assessment and plan: Chronic issue. Resume PO meds when able. Qualifiers: Coronary Disease-Associated Artery/Lesion type: [place] artery [place] vs. transplanted heart: [place] heart Associated angina: without angina Qualified Code(s): I25.10 - Atherosclerotic heart disease of [place] coronary artery without angina pectoris (6) DVT prophylaxis Current Visit: No Status: Acute - Time Spent With Patient Total time spent is greater than 50% in coordination of care (as documented) at patient's floor/unit and/or counseling patient: - Subjective Interval history: Mr Givens is currently admitted for abdominal pain concerning for ileus versus obstruction as well as UTI. He continues to have pain. He has NG in place. He remains moderate to high risk due to potential for worsening clinical status. Mr Givens is continuing to have back and abdominal pain. Some nausea. No fever or chills. Appreciate surgical help. Denies CP or SOB. No BM and says he is not passing flatus either. - Constitutional Vitals: Temp Pulse Resp BP Pulse Ox 98.4 F 84 16 204/110 94 12/18/17 11:49 12/18/17 11:49 12/18/17 11:49 12/18/17 11:49 12/18/17 11:49 General appearance: Present: A&O X 3, answers questions appropriately - Head Head exam: Present: normocephalic - Eye Eye exam: Present: EOMI, conjuntiva pink - ENT ENT exam: Present: mucous membranes dry - Respiratory Respiratory exam: Present: decreased breath sounds. Absent: rales, rhonchi, wheezes - Cardiovascular Cardiovascular exam: Present: RRR. Absent: tachycardia - GI/Abdominal GI/Abdominal exam: Present: distended, tenderness - Extremities Exam Extremities exam: Present: warm. Absent: tenderness - Neurological Exam Neurological exam: Present: alert, oriented X3 - Psychiatric Psychiatric exam: Present: depressed - Skin Skin exam: Present: dry, warm Internal Medicine: Result - Labs CBC & Chem 7: 12/18/17 05:16 12/18/17 05:16 Labs: Short CBC 12/18/17 Range/Units 05:16 WBC 6.5 (4.3-11.1) K/mcL Hgb 10.6 L (12.9-16.9) g/dL Hct 32.2 L (37.5-50.1) % Plt Count 174 (140-400) K/mcL BMP 12/18/17 05:16 Sodium 144 Potassium 3.8 Chloride 109 H Carbon Dioxide 27 BUN 12 Creatinine 1.11 Glucose 108 H Calcium 8.7 Liver Function 12/18/17 Range/Units 05:16 Total Bilirubin 0.5 (0.3-1.0) mg/dL AST 9 L (13-39) Units/L ALT 6 L (7-52) Units/L Alkaline Phosphatase 95 (34-104) Units/L Albumin 3.1 L (3.5-5.7) g/dL - Impressions Impressions Abdomen X-Ray 12/18/17 12:56 IMPRESSION: Findings similar the prior study with exception of dense material within the proximal colon. D/ / Sonya Staples Cha, MD / Sonya Staples Cha, MD Interpreting Provider: Sonya Staples Cha, MD Consult Discharge Plan - Plan Referrals: [facility] [Outside]
[2017-12-18] MEDS: *HR* FentaNYL (PF) 100 MCG/2 ML VIAL IVP PRN (16:42)
[2017-12-19] MEDS: OXYCODONE Oral CONC 10 MG/0.5 ML ORAL.SYG SL PRN ×3 (01:08→20:29)
[2017-12-19] MEDS ORDERED: *HR* Labetalol 20 MG/4 ML SYRINGE IVP ONE (03:23)
[2017-12-19] MEDS: Insulin LISPRO 300 UNITS/3 ML VIAL SQ SCH ×3 (05:38→17:58)
[2017-12-19] MEDS: *HR* Metoprolol 5 MG/5 ML VIAL IVP SCH ×3 (05:39→17:58)
[2017-12-19] MEDS: *HR* Heparin 5,000 UNIT/ML VIAL SQ SCH ×3 (05:39→21:46)
[2017-12-19 06:12] LABS: Hematocrit 33.1 % (37.5-50.1); Hemoglobin 10.8 g/dL (12.9-16.9); Mean Corpuscular HGB Conc 32.6 g/dL (31.6-35.5); Mean Corpuscular Hemoglobin 28.3 pg (28.0-33.3); Mean Corpuscular Volume 86.6 fL (83.0-100.0); Mean Platelet Volume 11.1 fL (9.4-12.4); Platelet Count 176 K/mcL (140-400); Red Blood Count 3.82 M/mcL (4.19-5.50); Red Cell Distribution Width 13.1 % (11.5-14.5)
[2017-12-19 06:30] LABS: BUN/Creatinine Ratio 13 (6-26); Blood Urea Nitrogen 12 mg/dL (8-23); Calcium 8.8 mg/dL (8.6-10.3); Carbon Dioxide 22 mEq/L (23-29); Chloride 109 mEq/L (98-107); Glucose 178 mg/dL (70-105); Osmolality,Calculated 296 (280-300); Potassium 3.6 mEq/L (3.5-5.1); Sodium 141 mEq/L (136-145); eGFR For African Americans > 60 (> 60); eGFR For Non-African Americans > 60 (> 60)
[2017-12-19] MEDS: *HR* LORazepam 2 MG/ML VIAL IVP SCH (07:46)
[2017-12-19] MEDS: cefTRIAXone 1,000 MG in Water for inj. (sterile) 20 ML 10 ML IVP SCH (07:46)
[2017-12-19] MEDS: Insulin DETEMIR 100 UNIT/ML X5UNITS SQ SCH (07:54)
[2017-12-19] MEDS: 0.9 % Sodium Chloride 1,000 ML IVC SCH ×2 (07:55→21:45)
[2017-12-19 09:57] LABS: Magnesium 1.9 mg/dL (1.6-2.6); Phosphorous 3.2 mg/dL (2.7-4.5); Triglycerides 183 mg/dL (< 150)
--- NOTE | 2017-12-19 10:13 | General Surgery Progress Note ---
Date of Encounter: 12/19/17 Time of Encounter: 10:00 - Assessment and Plan (1) Small bowel obstruction Current Visit: No Status: Acute Continue with conservative measures: NPO NG tube to LIWS Complete SBFT with gastrograffin today via NG tube Supportive care IV fluids Surgery will continue to follow and assess progress (2) DVT prophylaxis Current Visit: No Status: Acute Heparin 5,000 units SQ tid for DVT prophylaxis Ambulate hallways TID with assistance- october clamp NG tube for ambulation Subjective Patient reports: no new complaints, still having pain (Right sided), voiding w/ o difficulty, flatus (small amount), no bowel movement, afebrile Objective Vital Signs - Last 8 Hours Temp Pulse Resp BP Pulse Ox 12/19/17 10:10 98.4 F 86 15 172/81 96 12/19/17 05:18 99.0 F 86 16 163/81 95 12/19/17 03:00 97.8 F 94 15 180/84 95 Intake and Output 12/18/17 12/19/17 12/19/17 23:59 07:59 15:59 Intake Total 1214 / 1214 816 / 816 0 / 0 Output Total 3000 / 3000 1650 / 1650 0 / 0 Balance -1786 / -1786 -834 / -834 0 / 0 Intake: IV Fluids 1214 / 1214 786 / 786 0.9 % Sodium Chloride 1,000 ML 1214 / 1214 786 / 786 @ 100 mls/hr IVC .Q10H KEVON Rx#: [id number] Oral 0 / 0 30 / 30 0 / 0 Output: Urine 1350 / 1350 1400 / 1400 0 / 0 Emesis 0 / 0 Gastric Drainage 1650 / 1650 250 / 250 Other: Weight 112.7 kg Blood Glucose* 182 175 Patient Weight 12/19/17 23:59 Weight 112.7 kg - General physical appearance well developed, well nourished, no distress - Eyes normal ocular movement - ENT normal mucosa, atraumatic, normocephalic - Neck Neck exam: trachea midline - Respiratory normal respiratory effort, clear to auscultation - Cardiovascular Cardiovascular exam: Present: RRR - Abdomen Abdomen: Present: bowel sounds present, soft, tender, wound (NG tube to LIWS with approximately 300ml of bilious drainge noted since midnight) Abdominal Tenderness: RLQ - Incision Incision: Present: clean and dry, intact - Neurologic CN 2-12 grossly intact - Psychiatric oriented to time, oriented to person, oriented to place, speech is normal, memory intact - Labs 12/19/17 04:39 12/19/17 04:39 Diabetes panel 12/19/17 Range/Units 04:39 Sodium 141 (136-145) mEq/L Potassium 3.6 (3.5-5.1) mEq/L Chloride 109 H (98-107) mEq/L Carbon Dioxide 22 L (23-29) mEq/L BUN 12 (8-23) mg/dL Creatinine 0.93 (0.70-1.30) mg/dL Glucose 178 H (70-105) mg/dL Calcium 8.8 (8.6-10.3) mg/dL Triglycerides 183 H (< 150) mg/dL Calcium panel 12/19/17 Range/Units 04:39 Calcium 8.8 (8.6-10.3) mg/dL Phosphorus 3.2 (2.7-4.5) mg/dL Pituitary panel 12/19/17 Range/Units 04:39 Sodium 141 (136-145) mEq/L Potassium 3.6 (3.5-5.1) mEq/L Chloride 109 H (98-107) mEq/L Carbon Dioxide 22 L (23-29) mEq/L BUN 12 (8-23) mg/dL Creatinine 0.93 (0.70-1.30) mg/dL Glucose 178 H (70-105) mg/dL Calcium 8.8 (8.6-10.3) mg/dL Adrenal panel 12/19/17 Range/Units 04:39 Sodium 141 (136-145) mEq/L Potassium 3.6 (3.5-5.1) mEq/L Chloride 109 H (98-107) mEq/L Carbon Dioxide 22 L (23-29) mEq/L BUN 12 (8-23) mg/dL Creatinine 0.93 (0.70-1.30) mg/dL Glucose 178 H (70-105) mg/dL Calcium 8.8 (8.6-10.3) mg/dL Consult Discharge Plan - Plan Referrals: [facility] [Outside] - Attending Attestation For this encounter, I have reviewed the SUPERVISOR INSULATION or PA documentation, treatment plan, and medical decision making; and I have had face to face time with this patient.
[2017-12-19] MEDS ORDERED: Furosemide 40 MG/4 ML VIAL IVP ONE (10:59)
--- NOTE | 2017-12-19 11:16 | Internal Med Progress Note ---
Date of Encounter: 12/19/17 Time of Encounter: 11:00 - Assessment and plan (1) UTI (urinary tract infection) Current Visit: Yes Status: Acute Assessment and plan: No culture results. Currently on IV Ceftriaxone. Will complete 5-7 days of abx today. Qualifiers: Urinary tract infection type: acute cystitis Hematuria presence: without hematuria Qualified Code(s): N30.00 - Acute cystitis without hematuria (2) HTN (hypertension) Current Visit: No Status: Chronic Assessment and plan: Blood pressure remains uncontrolled. On enaliprilat and metoprolol as well as PRN hydralazine. Will give dose of Lasix today as he is mildly volume overloaded but still needs some fluids. If continues may need nitro patch. Qualifiers: Hypertension type: essential hypertension Qualified Code(s): I10 - Essential (primary) hypertension (3) Abdominal pain Current Visit: Yes Status: Acute Assessment and plan: Seems to be a little better today. Continue pain management. SBFT today. Qualifiers: Abdominal location: generalized Qualified Code(s): R10.84 - Generalized abdominal pain (4) Diabetes Current Visit: No Status: Chronic Assessment and plan: Fair control. Continue accuchecks and coverage. Qualifiers: Diabetes mellitus type: type 2 Diabetes mellitus shelter insulin use: with emt intermediate use Diabetes mellitus complication status: with hyperglycemia Qualified Code(s): E11.65 - Type 2 diabetes mellitus with hyperglycemia; Z79.4 - terminal superintendent (current) use of insulin (5) CAD (coronary artery disease) Current Visit: No Status: Chronic Assessment and plan: Chronic issue. Resume PO meds when able. Qualifiers: Coronary Disease-Associated Artery/Lesion type: [place] artery [place] vs. transplanted heart: [place] heart Associated angina: without angina Qualified Code(s): I25.10 - Atherosclerotic heart disease of [place] coronary artery without angina pectoris (6) DVT prophylaxis Current Visit: No Status: Acute - Time Spent With Patient Total time spent is greater than 50% in coordination of care (as documented) at patient's floor/unit and/or counseling patient: - Subjective Interval history: Mr Givens is currently admitted for abdominal pain concerning for ileus versus obstruction as well as UTI. He continues to have pain. He has NG in place. He remains moderate to high risk due to potential for worsening clinical status. Mr Givens is passing gas today. Seems to have less pain. Blood pressure has been markedly elevated. No fever or chills. No CP or SOB. No arm pain. To have SBFT today. No urinary symptoms now. - Constitutional Vitals: Temp Pulse Resp BP Pulse Ox 98.4 F 86 15 178/68 96 12/19/17 10:10 12/19/17 10:10 12/19/17 10:10 12/19/17 10:58 12/19/17 10:10 General appearance: Present: A&O X 3, answers questions appropriately Exam: Appears to be more comfortable today. - Head Head exam: Present: atraumatic, normocephalic - Eye Eye exam: Present: EOMI, conjuntiva pink - ENT ENT exam: Present: mucous membranes dry Additional comments: NG in place - Respiratory Respiratory exam: Present: decreased breath sounds, CTAB. Absent: rales, rhonchi, wheezes - Cardiovascular Cardiovascular exam: Present: RRR. Absent: tachycardia - GI/Abdominal GI/Abdominal exam: Present: distended, hypoactive bowel sounds, soft - Extremities Exam Extremities exam: Present: pedal edema, warm. Absent: tenderness - Neurological Exam Neurological exam: Present: alert, oriented X3 - Skin Skin exam: Present: dry, warm Internal Medicine: Result - Labs CBC & Chem 7: 12/19/17 04:39 12/19/17 04:39 Labs: Short CBC 12/19/17 Range/Units 04:39 WBC 5.9 (4.3-11.1) K/mcL Hgb 10.8 L (12.9-16.9) g/dL Hct 33.1 L (37.5-50.1) % Plt Count 176 (140-400) K/mcL BMP 12/19/17 04:39 Sodium 141 Potassium 3.6 Chloride 109 H Carbon Dioxide 22 L BUN 12 Creatinine 0.93 Glucose 178 H Calcium 8.8 - Impressions Impressions Abdomen X-Ray 12/18/17 12:56 IMPRESSION: Findings similar the prior study with exception of dense material within the proximal colon. D/ / Sonya Staples Cha, MD / Sonya Staples Cha, MD Interpreting Provider: Sonya Staples Cha, MD Consult Discharge Plan - Plan Referrals: [facility] [Outside]
[2017-12-19] MEDS: Pantoprazole 40 MG VIAL IVP SCH (11:40)
[2017-12-19] MEDS: Ondansetron 4 MG/2 ML VIAL IVP PRN (11:40)
[2017-12-19] MEDS: *HR* FentaNYL (PF) 100 MCG/2 ML VIAL IVP PRN (14:07)
[2017-12-19] MEDS: Nitroglycerin 1 INCH/GM PACKET TP SCH (20:13)
[2017-12-20] MEDS: Insulin LISPRO 300 UNITS/3 ML VIAL SQ SCH ×3 (00:15→13:00)
[2017-12-20] MEDS: *HR* Metoprolol 5 MG/5 ML VIAL IVP SCH ×3 (00:15→12:53)
[2017-12-20] MEDS: *HR* Heparin 5,000 UNIT/ML VIAL SQ SCH ×2 (05:53→12:53)
[2017-12-20] MEDS: Nitroglycerin 1 INCH/GM PACKET TP SCH ×2 (05:53→11:43)
[2017-12-20] MEDS: OXYCODONE Oral CONC 10 MG/0.5 ML ORAL.SYG SL PRN (05:54)
[2017-12-20] MEDS ORDERED: *HR* LORazepam 2 MG/ML VIAL IVP PRN (06:00)
[2017-12-20 06:04] LABS: Hematocrit 32.1 % (37.5-50.1); Hemoglobin 10.5 g/dL (12.9-16.9); Mean Corpuscular HGB Conc 32.7 g/dL (31.6-35.5); Mean Corpuscular Hemoglobin 27.9 pg (28.0-33.3); Mean Corpuscular Volume 85.1 fL (83.0-100.0); Mean Platelet Volume 10.5 fL (9.4-12.4); Platelet Count 202 K/mcL (140-400); Red Blood Count 3.77 M/mcL (4.19-5.50); Red Cell Distribution Width 13.4 % (11.5-14.5)
[2017-12-20 06:21] LABS: BUN/Creatinine Ratio 11 (6-26); Blood Urea Nitrogen 12 mg/dL (8-23); Carbon Dioxide 22 mEq/L (23-29); Chloride 111 mEq/L (98-107); Glucose 185 mg/dL (70-105); Osmolality,Calculated 301 (280-300); Potassium 3.4 mEq/L (3.5-5.1); Sodium 143 mEq/L (136-145); eGFR For African Americans > 60 (> 60); eGFR For Non-African Americans > 60 (> 60)
[2017-12-20] MEDS: 0.9 % Sodium Chloride 1,000 ML IVC SCH (07:05)
[2017-12-20] MEDS: cefTRIAXone 1,000 MG in Water for inj. (sterile) 20 ML 10 ML IVP SCH (08:16)
[2017-12-20] MEDS: Pantoprazole 40 MG VIAL IVP SCH (08:16)
--- NOTE | 2017-12-20 10:05 | General Surgery Progress Note ---
Date of Encounter: 12/20/17 Time of Encounter: 10:02 - Assessment and Plan (1) Partial small bowel obstruction Current Visit: No Status: Acute Partial small bowel obstruction versus ileus given urinary tract infection. Small bowel follow-through with Gastrograffin on 12/19/2017 is without evidence of obstruction. His NG has been DC'd and he is tolerating clear liquids. He requests further advancement of his diet to, "can I just have a soft diet?" He further inquires, "I have had three surgeries now. Am I just going to get this from time to time." I did review in detail the nature of SBOs vs ileus and the typical causes of SBO. I also encouraged good bowel health at home included high-fiber diet, plenty of fluids, and miralax if a laxative is needed. Pt verbalized understanding and adherence. There is no urgent surgical indication at this time. Okay to advance diet as tolerated. If he tolerates lunch, he is okay to discharge from a surgical perspective. No surgical follow-up is needed at this time. Thank you for allowing us to participate in Mr. Givens's care. (2) Acute urticaria Current Visit: Yes Status: Acute Patient reports itching to the abdomen. There are a few hives noted on the abdomen. I will provide one dose of hydroxyzine for acute uticaria. Pt is unsure if any new medications have been started. Will defer Further management per primary team. (3) UTI (urinary tract infection) Current Visit: Yes Status: Acute Management per primary team Qualifiers: Urinary tract infection type: acute cystitis Hematuria presence: without hematuria Qualified Code(s): N30.00 - Acute cystitis without hematuria Subjective Patient reports: no new complaints, feels better, tolerating liquids well, voiding w/o difficulty, flatus, no bowel movement, afebrile, other (States he just tooka shower and feels better. He reports some itching on his abdomen) Objective Vital Signs - Last 8 Hours Temp Pulse Resp BP Pulse Ox 12/20/17 07:38 98.5 F 75 18 187/98 96 12/20/17 05:45 97.6 F 81 16 187/88 97 12/20/17 02:48 176/73 Intake and Output 12/19/17 12/20/17 12/20/17 23:59 07:59 15:59 Intake Total 0 / 0 566 / 566 Output Total 1400 / 1400 0 / 0 Balance -1400 / -1400 566 / 566 Intake: IV Fluids 410 / 410 0.9 % Sodium Chloride 1,000 ML 410 / 410 @ 75 mls/hr IVC .[id number] KEVON Rx #:[id number] Oral 0 / 0 156 / 156 Output: Urine 550 / 550 0 / 0 Gastric Drainage 850 / 850 0 / 0 Other: Meal npo Stool Size Large Stool Consistency loose liquid Stool Characteristics Pasty Stool Color Brown # Voids 1 # Bowel Movements 2 1 Weight 109.4 kg Blood Glucose* 165 170 Patient Weight 12/20/17 23:59 Weight 109.4 kg VITAL SIGNS: Reviewed. See [facility] GENERAL: In no apparent distress. HEENT: Normocephalic, atraumatic, pupils are equal and reactive, extraocular motions intact, oropharynx is pink and moist, there is no neck adenopathy or JVD noted. CHEST/RESPIRATORY: The thorax is free from signs of trauma. Lung sounds: clear to auscultation, normal respiratory effort CARDIAC: tachycardic (states he just got back in bed from the shower). regular rhythm. Normal S1 and S2, without murmurs, gallops, or rubs. VASCULAR: No Edema. 2+ peripheral pulses. ABDOMEN: soft, active bowel sounds, nontender INCISION: Surgical incision is clean, dry, and intact. There are no signs of cellulitis or infection noted. MUSCULOSKELETAL: Good range of motion of all major joints. Extremities without clubbing, cyanosis or edema. NEUROLOGIC EXAM: Alert and oriented x 3. Speech normal. Follows commands. PSYCHIATRIC: Mood normal. SKIN: No rash or lesions. - Labs 12/20/17 05:35 12/20/17 05:35 Diabetes panel 12/20/17 Range/Units 05:35 Sodium 143 (136-145) mEq/L Potassium 3.4 L (3.5-5.1) mEq/L Chloride 111 H (98-107) mEq/L Carbon Dioxide 22 L (23-29) mEq/L BUN 12 (8-23) mg/dL Creatinine 1.06 (0.70-1.30) mg/dL Glucose 185 H (70-105) mg/dL Calcium 9.0 (8.6-10.3) mg/dL Calcium panel 12/20/17 Range/Units 05:35 Calcium 9.0 (8.6-10.3) mg/dL Pituitary panel 12/20/17 Range/Units 05:35 Sodium 143 (136-145) mEq/L Potassium 3.4 L (3.5-5.1) mEq/L Chloride 111 H (98-107) mEq/L Carbon Dioxide 22 L (23-29) mEq/L BUN 12 (8-23) mg/dL Creatinine 1.06 (0.70-1.30) mg/dL Glucose 185 H (70-105) mg/dL Calcium 9.0 (8.6-10.3) mg/dL Adrenal panel 12/20/17 Range/Units 05:35 Sodium 143 (136-145) mEq/L Potassium 3.4 L (3.5-5.1) mEq/L Chloride 111 H (98-107) mEq/L Carbon Dioxide 22 L (23-29) mEq/L BUN 12 (8-23) mg/dL Creatinine 1.06 (0.70-1.30) mg/dL Glucose 185 H (70-105) mg/dL Calcium 9.0 (8.6-10.3) mg/dL Consult Discharge Plan - Plan Instructions: High Fiber Diet (DC), Bowel Obstruction (GEN), Ileus (GEN) Referrals: [facility] [Outside]
[2017-12-20] MEDS ORDERED: Lisinopril 20 MG TABLET PO SCH (15:00)
[2017-12-20] MEDS ORDERED: Insulin DETEMIR 100 UNIT/ML X5UNITS SQ SCH (15:00)
[2017-12-20] MEDS ORDERED: Insulin LISPRO 300 UNITS/3 ML VIAL SQ SCH (17:00)
--- NOTE | 2017-12-20 18:44 | Discharge Summary ---
Date of Encounter: 12/20/17 Time of Encounter: 18:41 - Discharge Diagnosis (1) Small bowel obstruction Priority: Primary Status: Acute (2) CAD (coronary artery disease) Status: Chronic Qualifiers: Coronary Disease-Associated Artery/Lesion type: [place] artery [place] vs. transplanted heart: [place] heart Associated angina: without angina Qualified Code(s): I25.10 - Atherosclerotic heart disease of [place] coronary artery without angina pectoris (3) T2DM (type 2 diabetes mellitus) Priority: Secondary Status: Chronic Qualifiers: Diabetes mellitus billet worker insulin use: with group home use Diabetes mellitus complication status: without complication Qualified Code(s): E11.9 - Type 2 diabetes mellitus without complications; Z79.4 - correction (current) use of insulin (4) HTN (hypertension) Priority: Secondary Status: Chronic Qualifiers: Hypertension type: essential hypertension Qualified Code(s): I10 - Essential (primary) hypertension Hospital course: Mr. Givens is a 62 year old male. Discharge discussed with: patient, family - Time Spent with Patient Total time spent providing and/or coordinating discharge services: Greater than 30 minutes (35 minutes) - Discharge Medications Prescriptions: Potassium Chloride 20 meq PO BID #10 tab.er.prt Home Medications: Acetaminophen [Tylenol] 650 mg PO TID PRN 11/30/17 [History] Aspirin [Ecotrin] 325 mg PO DAILY 11/30/17 [History] Cholecalciferol (D-3) [Vitamin D] 2,000 unit PO DAILY 11/30/17 [History] Docusate Sodium [Stool Softener] 200 mg PO DAILY 11/30/17 [History] Duloxetine HCl [Cymbalta] 60 mg PO DAILY 11/30/17 [History] Gabapentin [Neurontin] 800 mg PO TID 11/30/17 [History] Insulin ASPART [NovoLOG] 16 unit SQ QAM 11/30/17 [History] Insulin ASPART [NovoLOG] 18 unit SQ QPM 11/30/17 [History] Insulin Glargine,Hum.rec.anlog [Lantus Solostar] 70 units SQ QAM 11/30/17 [ History] Lidocaine [Lidocaine Pain Relief] 1 patch TP DAILY 11/30/17 [History] Lisinopril [Zestril] 20 mg PO DAILY 11/30/17 [History] Meclizine HCl [Verticalm] 25 mg PO BID 11/30/17 [History] Meloxicam [Mobic] 7.5 mg PO BID 11/30/17 [History] Methocarbamol [Robaxin] 500 mg PO Q8HR 11/30/17 [History] Metoprolol [Lopressor] 25 mg PO BID 11/30/17 [History] NIFEdipine [Nifedipine ER] 30 mg PO DAILY 11/30/17 [History] Atorvastatin [Lipitor] 40 mg PO HS 12/16/17 [History] Potassium Chloride 20 meq PO BID #10 tab.er.prt 12/20/17 [Rx] Allergies/Adverse Reactions: 3 Allergy/AdvReac Type Severity Reaction Status Date / Time metformin AdvReac Nausea Verified 11/30/17 16:43 bleach Allergy Hives Uncoded 11/30/17 16:43 Date of admission: 12/16/17 19:18 [facility] care physician: [facility] Consults: 12/18/17 12:57 Consult to Invasive Line Access Team [CONS] Routine Reason for Consult: PICC Line Type: PICC PICC line indications: Parental nutrition Time Notified: 12:58 Call Completed: No Consult to Nutrition [CONS] Routine Comment: Consulting Provider: NUTRITION Reason for Dietary Consult: TPN Start and Manage Discharging clinician: Aubrey Montague Anticipated date of discharge: 12/20/17 - Constitutional Vitals: Temp Pulse Resp BP Pulse Ox 98.0 F 89 15 160/77 98 12/20/17 14:08 12/20/17 14:08 12/20/17 14:08 12/20/17 14:08 12/20/17 14:08 General appearance: Present: A&O X 3, answers questions appropriately - Respiratory Respiratory exam: Present: CTAB. Absent: accessory muscle use, rales, rhonchi, wheezes - Cardiovascular Cardiovascular exam: Present: RRR, +S1, +S2. Absent: diastolic murmur, gallop, rubs, systolic murmur - GI/Abdominal GI/Abdominal exam: Present: normal bowel sounds, soft, no peritoneal signs. Absent: distended, tenderness - Patient Status Disposition: Home, Self-Care Condition: Fair Functional capacity at discharge: independent ambulation Overall status at discharge: patient is back to baseline - Discharge Instructions Instructions: High Fiber Diet (DC), Bowel Obstruction (GEN), Ileus (GEN) Follow Up With: [facility] [Outside] - Diet and Activity Activity: resume usual activities as tolerated Diet: diabetic diet - VTE Deep Vein Thrombosis/Pulmonary Embolism Present on Admission: No
[2017-12-20 18:58] VITALS: BP 141/79
== END 2017-12-20 19:39 | disposition home or self-care (01) | DRG 389 ==
LOC: 3ANU 16:41 → EMEROO 16:41 → SUATTDRO 19:18 → 3ANU 19:51
PROVIDERS: ADMIT Internal Medicine Nephrology; ATTEND Internal Medicine

== ENCOUNTER 2019-01-22 16:43 | Observation (INO) ==
[2019-01-22] MEDS ORDERED: 0.9 % Sodium Chloride 1,000 ML IVC ONE ×4 (17:00→22:40)
[2019-01-22] MEDS ORDERED: Ondansetron 4 MG/2 ML VIAL IVP ONE (17:00)
[2019-01-22] MEDS ORDERED: Acetaminophen 325 MG TABLET PO ONE (17:00)
[2019-01-22] MEDS ORDERED: Isovue-370 500 ML BOTTLE IVP ONE (17:04)
[2019-01-22 17:36] LABS: Basophils # 0.1 K/mcL (0.0-0.2); Basophils % 0.7 %; Eosinophils # 0.1 K/mcL (0.0-0.6); Eosinophils % 0.7 %; Hematocrit 30.3 % (37.5-50.1); Hemoglobin 10.5 g/dL (12.9-16.9); Immature Granulocytes % 0.9 % (0-4); Lymphocytes # 1.7 K/mcL (0.6-4.6); Lymphocytes % 21.5 %; Mean Corpuscular HGB Conc 34.7 g/dL (31.6-35.5); Mean Corpuscular Hemoglobin 28.5 pg (28.0-33.3); Mean Corpuscular Volume 82.1 fL (83.0-100.0); Mean Platelet Volume 11.1 fL (9.4-12.4); Monocytes # 0.4 K/mcL (0.0-1.3); Neutrophils # 5.5 K/mcL (1.6-8.9); Platelet Count 245 K/mcL (140-400); Red Blood Count 3.69 M/mcL (4.19-5.50); Red Cell Distribution Width 11.9 % (11.5-14.5); Segmented Neutrophils % 71.2 %; White Blood Count 7.7 K/mcL (4.3-11.1)
[2019-01-22 17:38] LABS: Bilirubin,Urine Negative (Negative); Blood,Urine Small (Negative); Clarity,Urine Clear (Clear); Color,Urine Yellow (Yellow); Glucose,Urine (UA) >=1000 mg/dL (Normal); Ketones,Urine Trace mg/dL (Negative); Leukocyte Esterase,Urine Negative (Negative); Nitrite,Urine Negative (Negative); Protein,Urine >=300 mg/dL (Neg-Trace); Specific Gravity,Urine 1.026 (1.010-1.025); Urobilinogen,Urine Normal (Normal)
[2019-01-22 17:41] LABS: Bacteria,Urine None Seen per hpf (None-Few); Hyaline Casts,Urine None Seen per lpf (None-Few); Squamous Epithelial Cell,Urine Moderate per lpf (None-Few); WBC,Urine 15-30 per hpf (0-3)
[2019-01-22 17:48] LABS: Amphetamine Screen,Urine Negative ng/mL (Cutoff=1000); Barbiturate Screen,Urine Negative ng/mL (Cutoff=200); Benzodiazepines Screen,Urine Negative ng/mL (Cutoff=200); Cannabinoid Screen,Urine Negative ng/mL (Cutoff = 50); Cocaine Screen,Urine Negative ng/mL (Cutoff= 300); Opiate Screen,Urine Negative ng/mL (Cutoff=300); Phencyclidine Screen,Urine Negative ng/mL (Cutoff=25)
[2019-01-22 17:50] LABS: INR 1.1
[2019-01-22] MEDS ORDERED: *HR* LORazepam 2 MG/ML VIAL IVP ONE ×3 (17:55→19:26)
[2019-01-22 18:14] LABS: Alanine Aminotransferase 9 Units/L (7-52); Albumin 3.1 g/dL (3.5-5.7); Alkaline Phosphatase 132 Units/L (34-104); Aspartate Amino Transferase 11 Units/L (13-39); BUN/Creatinine Ratio 8 (6-26); Bilirubin,Total 0.6 mg/dL (0.3-1.0); Blood Urea Nitrogen 12 mg/dL (8-23); Calcium 8.6 mg/dL (8.6-10.3); Carbon Dioxide 20 mEq/L (23-29); Chloride 87 mEq/L (98-107); Ethanol < 10 mg/dL (Less than 10); Globulin 3.2 g/dL (2.4-3.5); Osmolality,Calculated 288 (280-300); Potassium 3.4 mEq/L (3.5-5.1); Sodium 120 mEq/L (136-145); Total Protein 6.3 g/dL (6.4-8.9); eGFR For African Americans 59 (> 60); eGFR For Non-African Americans 48 (> 60)
[2019-01-22 18:17] LABS: Glucose 791 mg/dL (70-105)
[2019-01-22] MEDS ORDERED: *HR* Dextrose 50 % in Water (Syg) 50 ML SYRINGE IVP PRN ×2 (18:27→18:28)
[2019-01-22] MEDS ORDERED: Insulin Human Regular 100 UNIT in 0.9 % Sodium Chloride 100 ML IVC SCH (18:30)
[2019-01-22] MEDS: 0.9 % Sodium Chloride 1,000 ML IVC SCH ×2 (18:56→19:55)
[2019-01-22] MEDS ORDERED: Potassium Chloride Elixir 20 MEQ/15 ML UDC PO ONE (19:00)
[2019-01-22 21:39] LABS: BUN/Creatinine Ratio 8 (6-26); Blood Urea Nitrogen 11 mg/dL (8-23); Calcium 8.3 mg/dL (8.6-10.3); Carbon Dioxide 19 mEq/L (23-29); Chloride 94 mEq/L (98-107); Glucose 610 mg/dL (70-105); Osmolality,Calculated 276 (280-300); Potassium 3.5 mEq/L (3.5-5.1); Sodium 119 mEq/L (136-145); eGFR For African Americans > 60 (> 60); eGFR For Non-African Americans 54 (> 60)
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
[2019-01-22] MEDS ORDERED: 0.9 % Sodium Chloride 1,000 ML IVC SCH (23:30)
[2019-01-23] MEDS ORDERED: Insulin LISPRO 300 UNITS/3 ML VIAL SQ PRN (00:35)
[2019-01-23] MEDS ORDERED: *HR* Dextrose 50 % in Water (Syg) 50 ML SYRINGE IVP PRN ×2 (00:35→08:52)
[2019-01-23] MEDS ORDERED: D5% in 0.45% NACL w KCl 20 MEQ/1,000 ML MLS IVC PRN (00:35)
[2019-01-23] MEDS ORDERED: Naloxone 0.4 MG/ML INJ IVP PRN (00:38)
[2019-01-23] MEDS: 0.45 % Sodium Chloride w/KCl 20 MEQ/1,000 ML MLS IVC SCH ×2 (01:19→05:27)
--- NOTE | 2019-01-23 01:29 | Pulmonology History & Physical ---
Date of Encounter: 01/23/19 History of Present Illness HPI: Mr. Givens is a 63 year old male Past Med Surg Social Fam HX - Past Medical History Medical history: coronary artery disease, CVA, diabetes, hyperlipidemia, hypertension, peripheral artery disease, RA, other Additional medical history: arterial sclerosis Psychiatric history: anxiety, depression, PTSD - Past Surgical History Surgical History: angioplasty/stent, cholecystectomy, herniorrhaphy, other (m ultiple small bowel obstruction surgeries in the past) Additional surgical history: SBO, hernia - Social History Smoking Status: Never smoker Smokeless Tobacco Status: No Alcohol use: none Drug use: none - Family History Mother Living Status: Hx Family Cardiac Disorders: Yes Hx Family GI Disorders: Yes Hx Family Endocrine Disorder: Yes (diabetes) Father Living Status: Hx Family Cardiac Disorders: Yes Medications and Allergies Acetaminophen [Tylenol] 650 mg PO TID PRN 11/30/17 [History] Aspirin [Ecotrin] 325 mg PO DAILY 11/30/17 [History] Cholecalciferol (D-3) [Vitamin D] 2,000 unit PO DAILY 11/30/17 [History] Docusate Sodium [Stool Softener] 200 mg PO DAILY 11/30/17 [History] Duloxetine HCl [Cymbalta] 60 mg PO DAILY 11/30/17 [History] Gabapentin [Neurontin] 800 mg PO TID 11/30/17 [History] Insulin ASPART [NovoLOG] 16 unit SQ QAM 11/30/17 [History] Insulin ASPART [NovoLOG] 18 unit SQ QPM 11/30/17 [History] Insulin Glargine,Hum.rec.anlog [Lantus Solostar] 70 units SQ QAM 11/30/17 [History] Lidocaine [Lidocaine Pain Relief] 1 patch TP DAILY 11/30/17 [History] Lisinopril [Zestril] 20 mg PO DAILY 11/30/17 [History] Meclizine HCl [Verticalm] 25 mg PO BID 11/30/17 [History] Meloxicam [Mobic] 7.5 mg PO BID 11/30/17 [History] Methocarbamol [Robaxin] 500 mg PO Q8HR 11/30/17 [History] Metoprolol [Lopressor] 25 mg PO BID 11/30/17 [History] NIFEdipine [Nifedipine ER] 30 mg PO DAILY 11/30/17 [History] Atorvastatin [Lipitor] 40 mg PO HS 12/16/17 [History] Potassium Chloride 20 meq PO BID #10 tab.er.prt 12/20/17 [Rx] Allergy/AdvReac Type Severity Reaction Status Date / Time metformin AdvReac Nausea Verified 11/30/17 16:43 bleach Allergy Hives Uncoded 11/30/17 16:43 All Systems: The remainder of the systems were reviewed and are negative Physical Examination Vital Signs: Vital Signs, Last 4 Hours Pulse Resp BP Pulse Ox 01/23/19 00:00 107 20 110/59 97 01/22/19 22:43 115 23 131/94 95 01/22/19 21:50 113 19 110/83 96 Results - Laboratory Findings CBC and BMP: 01/22/19 17:22 01/22/19 21:06 PT/INR, D-dimer PT 12.0 Seconds (9.4-12.1) 01/22/19 17:22 Abnormal lab findings: Abnormal lab results RBC 3.69 M/mcL (4.19-5.50) L 01/22/19 17:22 Hgb 10.5 g/dL (12.9-16.9) L 01/22/19 17:22 Hct 30.3 % (37.5-50.1) L 01/22/19 17:22 MCV 82.1 fL (83.0-100.0) L 01/22/19 17:22 Sodium 119 mEq/L (136-145) L* 01/22/19 21:06 Potassium 3.4 mEq/L (3.5-5.1) L 01/22/19 17:22 Chloride 94 mEq/L (98-107) L 01/22/19 21:06 Carbon Dioxide 19 mEq/L (23-29) L 01/22/19 21:06 Creatinine 1.33 mg/dL (0.70-1.30) H 01/22/19 21:06 Est GFR ( Amer) 59 (> 60) L 01/22/19 17:22 Est GFR (Non-Af Amer) 54 (> 60) L 01/22/19 21:06 Glucose 610 mg/dL (70-105) H* 01/22/19 21:06 Calculated Osmolality 276 (280-300) L 01/22/19 21:06 Lactic Acid 2.9 mmol/L (0.5-2.2) H 01/22/19 17:22 Calcium 8.3 mg/dL (8.6-10.3) L 01/22/19 21:06 AST 11 Units/L (13-39) L 01/22/19 17:22 Alkaline Phosphatase 132 Units/L (34-104) H 01/22/19 17:22 Serum Total Protein 6.3 g/dL (6.4-8.9) L 01/22/19 17:22 Albumin 3.1 g/dL (3.5-5.7) L 01/22/19 17:22 Albumin/Globulin Ratio 1.0 (1.1-2.2) L 01/22/19 17:22 Beta-Hydroxybutyric Acd 1.55 mmol/L (0.02-0.27) H 01/22/19 17:22 Ur Specific [place] 1.026 (1.010-1.025) H 01/22/19 17:26 Urine Protein >=300 mg/dL (Neg-Trace) H 01/22/19 17:26 Urine Glucose (UA) >=1000 mg/dL (Normal) H 01/22/19 17:26 Urine Ketones Trace mg/dL (Negative) H 01/22/19 17:26 Urine Blood Small (Negative) H 01/22/19 17:26 Urine Microscopic RBC 5-15 per hpf (0-3) H 01/22/19 17:26 Urine Microscopic WBC 15-30 per hpf (0-3) H 01/22/19 17:26 Ur Squamous Epith Cells Moderate per lpf (None-Few) H 01/22/19 17:26
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
[2019-01-23] MEDS ORDERED: *HR* LORazepam 1 MG TABLET PO PRN (02:04)
[2019-01-23 02:05] LABS: Alanine Aminotransferase 8 Units/L (7-52); Albumin 2.7 g/dL (3.5-5.7); Alkaline Phosphatase 98 Units/L (34-104); Aspartate Amino Transferase 13 Units/L (13-39); BUN/Creatinine Ratio 7 (6-26); Bilirubin,Total 0.4 mg/dL (0.3-1.0); Blood Urea Nitrogen 9 mg/dL (8-23); Calcium 7.8 mg/dL (8.6-10.3); Carbon Dioxide 18 mEq/L (23-29); Chloride 99 mEq/L (98-107); Globulin 2.7 g/dL (2.4-3.5); Glucose 404 mg/dL (70-105); Osmolality,Calculated 280 (280-300); Phosphorous 2.9 mg/dL (2.7-4.5); Potassium 3.3 mEq/L (3.5-5.1); Sodium 127 mEq/L (136-145); Total Protein 5.4 g/dL (6.4-8.9); eGFR For African Americans > 60 (> 60); eGFR For Non-African Americans 56 (> 60)
[2019-01-23] MEDS ORDERED: *HR* LORazepam 2 MG/ML VIAL IVP PRN (02:10)
[2019-01-23 02:26] LABS: ABG Base Excess -4 mEq/L (-2 to 3); ABG HCO3 19 mEq/L (21-27); ABG Oxygen Saturation 94 % (95-98); ABG PCO2 28 mmHg (35-45); ABG PH 7.44 pH Units (7.32-7.45); ABG PO2 68 mmHg (85-104); ABG TCO2 20 mEq/L (20-26)
[2019-01-23 04:56] LABS: BUN/Creatinine Ratio 6 (6-26); Blood Urea Nitrogen 8 mg/dL (8-23); Calcium 8.1 mg/dL (8.6-10.3); Carbon Dioxide 20 mEq/L (23-29); Chloride 102 mEq/L (98-107); Glucose 297 mg/dL (70-105); Osmolality,Calculated 281 (280-300); Potassium 3.1 mEq/L (3.5-5.1); Sodium 131 mEq/L (136-145); eGFR For African Americans > 60 (> 60); eGFR For Non-African Americans 55 (> 60)
[2019-01-23] MEDS ORDERED: Haloperidol Lactate 5 MG/ML VIAL IVP ONE (06:14)
[2019-01-23] MEDS ORDERED: Haloperidol Lactate 5 MG/ML VIAL ONE (06:15)
[2019-01-23] MEDS ORDERED: Insulin Human Regular 100 UNIT in 0.9 % Sodium Chloride 100 ML IVC SCH (06:45)
[2019-01-23] MEDS: *HR* Heparin 5,000 UNIT/ML VIAL SQ SCH ×3 (08:36→21:01)
[2019-01-23] MEDS ORDERED: Insulin DETEMIR 100 UNIT/ML X5UNITS SQ ONE ×2 (08:51→21:00)
[2019-01-23] MEDS ORDERED: D5% in Water 1,000 ML IVC PRN (08:52)
[2019-01-23] MEDS ORDERED: Dextrose Gel 15 GM/37.5 ML TUBE PO PRN ×2 (08:52)
[2019-01-23] MEDS: Insulin LISPRO 300 UNITS/3 ML VIAL SQ SCH ×3 (11:38→20:58)
[2019-01-23 12:05] LABS: Estimated Average Glucose 335 mg/dl
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
[2019-01-23] MEDS ORDERED: *HR* Metoprolol 5 MG/5 ML VIAL IVP ONE (22:53)
[2019-01-23] MEDS ORDERED: FentaNYL (PF) 1,000 MCG in 0.9 % Sodium Chloride 80 ML IVC SCH (23:00)
[2019-01-24 05:15] LABS: Basophils # 0.1 K/mcL (0.0-0.2); Basophils % 0.6 %; Eosinophils # 0.4 K/mcL (0.0-0.6); Eosinophils % 5.5 %; Hematocrit 33.3 % (37.5-50.1); Hemoglobin 11.5 g/dL (12.9-16.9); Immature Granulocytes % 0.9 % (0-4); Lymphocytes # 2.2 K/mcL (0.6-4.6); Lymphocytes % 27.7 %; Mean Corpuscular HGB Conc 34.5 g/dL (31.6-35.5); Mean Corpuscular Hemoglobin 29.1 pg (28.0-33.3); Mean Corpuscular Volume 84.3 fL (83.0-100.0); Mean Platelet Volume 10.8 fL (9.4-12.4); Monocytes # 0.4 K/mcL (0.0-1.3); Monocytes % 4.6 %; Neutrophils # 4.8 K/mcL (1.6-8.9); Platelet Count 261 K/mcL (140-400); Red Blood Count 3.95 M/mcL (4.19-5.50); Red Cell Distribution Width 12.3 % (11.5-14.5); Segmented Neutrophils % 60.7 %; White Blood Count 7.8 K/mcL (4.3-11.1)
[2019-01-24 05:33] LABS: BUN/Creatinine Ratio 7 (6-26); Blood Urea Nitrogen 9 mg/dL (8-23); Calcium 8.3 mg/dL (8.6-10.3); Carbon Dioxide 21 mEq/L (23-29); Chloride 107 mEq/L (98-107); Glucose 213 mg/dL (70-105); Osmolality,Calculated 287 (280-300); Potassium 3.3 mEq/L (3.5-5.1); Sodium 136 mEq/L (136-145); eGFR For African Americans > 60 (> 60); eGFR For Non-African Americans 53 (> 60)
[2019-01-24] MEDS: *HR* Heparin 5,000 UNIT/ML VIAL SQ SCH ×3 (06:21→21:35)
[2019-01-24] MEDS: Insulin LISPRO 300 UNITS/3 ML VIAL SQ SCH ×4 (09:30→21:42)
[2019-01-24] MEDS ORDERED: NIFEdipine XL (24 HR) 30 MG TAB.ER.24 PO SCH (11:00)
[2019-01-24] MEDS: Lisinopril 20 MG TABLET PO SCH (12:53)
[2019-01-24] MEDS ORDERED: hydrOXYzine pamoate 25 MG CAPSULE PO PRN (14:30)
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
[2019-01-24 15:06] LABS: Bilirubin,Urine Negative (Negative); Blood,Urine Small (Negative); Clarity,Urine Cloudy (Clear); Color,Urine Yellow (Yellow); Glucose,Urine (UA) >=1000 mg/dL (Normal); Ketones,Urine Negative (Negative); Leukocyte Esterase,Urine Small (Negative); Nitrite,Urine Negative (Negative); Protein,Urine >=300 mg/dL (Neg-Trace); Urobilinogen,Urine Normal (Normal)
[2019-01-24 15:09] LABS: Bacteria,Urine Many per hpf (None-Few); Hyaline Casts,Urine None Seen per lpf (None-Few); Squamous Epithelial Cell,Urine Many per lpf (None-Few); WBC,Urine TNTC per hpf (0-3)
[2019-01-24] MEDS: Gabapentin 400 MG CAPSULE PO SCH ×2 (16:02→21:36)
[2019-01-24] MEDS: Methocarbamol 500 MG TABLET PO SCH (16:02)
[2019-01-24] MEDS ORDERED: Insulin LISPRO 300 UNITS/3 ML VIAL SQ SCH (18:00)
[2019-01-24] MEDS ORDERED: Insulin DETEMIR 100 UNIT/ML X5UNITS SQ SCH (21:00)
[2019-01-25] MEDS: Methocarbamol 500 MG TABLET PO SCH ×2 (00:46→07:45)
[2019-01-25 01:48] LABS: Basophils # 0.1 K/mcL (0.0-0.2); Basophils % 0.6 %; Eosinophils # 0.5 K/mcL (0.0-0.6); Hematocrit 30.4 % (37.5-50.1); Hemoglobin 10.4 g/dL (12.9-16.9); Immature Granulocytes % 1.1 % (0-4); Lymphocytes # 2.6 K/mcL (0.6-4.6); Lymphocytes % 31.9 %; Mean Corpuscular HGB Conc 34.2 g/dL (31.6-35.5); Mean Corpuscular Hemoglobin 29.1 pg (28.0-33.3); Mean Corpuscular Volume 84.9 fL (83.0-100.0); Mean Platelet Volume 10.5 fL (9.4-12.4); Monocytes # 0.4 K/mcL (0.0-1.3); Monocytes % 4.9 %; Neutrophils # 4.5 K/mcL (1.6-8.9); Platelet Count 232 K/mcL (140-400); Red Blood Count 3.58 M/mcL (4.19-5.50); Red Cell Distribution Width 12.8 % (11.5-14.5); Segmented Neutrophils % 55.5 %; White Blood Count 8.2 K/mcL (4.3-11.1)
[2019-01-25 02:06] LABS: Calcium 8.3 mg/dL (8.6-10.3)
[2019-01-25] MEDS: *HR* Heparin 5,000 UNIT/ML VIAL SQ SCH (04:41)
[2019-01-25] MEDS: Gabapentin 400 MG CAPSULE PO SCH (07:44)
[2019-01-25] MEDS: Lisinopril 20 MG TABLET PO SCH (07:46)
[2019-01-25] MEDS: Insulin LISPRO 300 UNITS/3 ML VIAL SQ SCH ×2 (07:50→11:47)
[2019-01-25] MEDS ORDERED: Cholecalciferol (D-3) 1,000 UNIT (25MCG) TABLET PO SCH (09:00)
[2019-01-25] MEDS ORDERED: Insulin LISPRO 300 UNITS/3 ML VIAL SQ SCH (09:00)
[2019-01-25] MEDS ORDERED: Aspirin Enteric Coated 325 MG Tablet PO SCH (09:00)
[2019-01-25] MEDS ORDERED: NIFEdipine XL (24 HR) 30 MG TAB.ER.24 PO SCH (09:00)
[2019-01-25] MEDS ORDERED: Insulin DETEMIR 100 UNIT/ML X5UNITS SQ SCH (09:00)
[2019-01-25] MEDS ORDERED: BuPROPion XL (24 HR) 150 MG TABLET PO SCH (09:00)
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
[2019-01-25 11:28] VITALS: BP 149/92
== END 2019-01-25 14:16 | disposition home or self-care (01) ==
LOC: EMEROOARM 16:43 → 2NNU 16:43 → SUATTDRO 01-23 00:08 → 2NNU 01-23 00:59
PROVIDERS: ADMIT Internal Medicine; ATTEND Internal Medicine

== ENCOUNTER 2019-04-10 10:55 | Inpatient (IN) ==
[2019-04-10 12:08] LABS: Calcium 8.6 mg/dL (8.6-10.3); Potassium 4.6 mEq/L (3.5-5.1)
[2019-04-10 12:13] LABS: Troponin I 0.73 ng/mL (< 0.04)
[2019-04-10] MEDS ORDERED: Aspirin 81 MG TAB.CHEW PO ONE (12:14)
[2019-04-10] MEDS ORDERED: Furosemide 60 MG in 0.9 % Sodium Chloride 50 ML IV STA (12:14)
[2019-04-10 13:28] LABS: Basophils % 0.5 %; Eosinophils # 0.5 K/mcL (0.0-0.6); Eosinophils % 8.7 %; Hematocrit 29.3 % (37.5-50.1); Hemoglobin 9.5 g/dL (12.9-16.9); Immature Granulocytes % 0.3 % (0-4); Lymphocytes # 1.6 K/mcL (0.6-4.6); Lymphocytes % 25.2 %; Mean Corpuscular HGB Conc 32.4 g/dL (31.6-35.5); Mean Corpuscular Volume 92.4 fL (83.0-100.0); Mean Platelet Volume 10.8 fL (9.4-12.4); Monocytes # 0.4 K/mcL (0.0-1.3); Monocytes % 5.8 %; Neutrophils # 3.7 K/mcL (1.6-8.9); Platelet Count 151 K/mcL (140-400); Red Blood Count 3.17 M/mcL (4.19-5.50); Red Cell Distribution Width 13.9 % (11.5-14.5); Segmented Neutrophils % 59.5 %; White Blood Count 6.2 K/mcL (4.3-11.1)
[2019-04-10] MEDS ORDERED: Ondansetron 4 MG/2 ML VIAL IVP PRN (14:13)
[2019-04-10] MEDS ORDERED: Naloxone 0.4 MG/ML INJ IVP PRN (14:13)
[2019-04-10] MEDS ORDERED: Dextrose Gel 15 GM/37.5 ML TUBE PO PRN ×2 (14:19)
[2019-04-10] MEDS ORDERED: *HR* Dextrose 50 % in Water (Syg) 50 ML SYRINGE IVP PRN (14:19)
[2019-04-10] MEDS ORDERED: D5% in Water 1,000 ML IVC PRN (14:19)
[2019-04-10] MEDS ORDERED: Sennosides/Docusate Sodium TABLET PO PRN (14:23)
[2019-04-10] MEDS: *HR* Heparin 5,000 UNIT/ML VIAL SQ SCH (17:10)
[2019-04-10] MEDS: Insulin LISPRO 300 UNITS/3 ML VIAL SQ SCH (17:11)
[2019-04-10] MEDS: Insulin DETEMIR 100 UNIT/ML X5UNITS SQ SCH (21:24)
[2019-04-11] MEDS ORDERED: NIFEdipine 10 MG CAPSULE PO ONE (02:44)
[2019-04-11] MEDS ORDERED: *HR* LORazepam 2 MG/ML VIAL IVP ONE (03:54)
[2019-04-11] MEDS: *HR* Heparin 5,000 UNIT/ML VIAL SQ SCH ×2 (04:16→16:32)
[2019-04-11 06:09] LABS: Basophils # 0.1 K/mcL (0.0-0.2); Basophils % 0.8 %; Eosinophils # 0.6 K/mcL (0.0-0.6); Eosinophils % 9.2 %; Hematocrit 31.2 % (37.5-50.1); Hemoglobin 10.5 g/dL (12.9-16.9); Immature Granulocytes % 0.3 % (0-4); Lymphocytes # 1.8 K/mcL (0.6-4.6); Lymphocytes % 30.8 %; Mean Corpuscular HGB Conc 33.7 g/dL (31.6-35.5); Mean Corpuscular Hemoglobin 29.6 pg (28.0-33.3); Mean Corpuscular Volume 87.9 fL (83.0-100.0); Mean Platelet Volume 10.8 fL (9.4-12.4); Monocytes # 0.4 K/mcL (0.0-1.3); Monocytes % 5.9 %; Neutrophils # 3.2 K/mcL (1.6-8.9); Platelet Count 196 K/mcL (140-400); Red Blood Count 3.55 M/mcL (4.19-5.50); Red Cell Distribution Width 13.8 % (11.5-14.5)
[2019-04-11 06:16] LABS: INR 1.1; Prothrombin Time 12.7 Seconds (9.4-12.1)
[2019-04-11 06:19] LABS: Activated Partial Thrombo Time 37.2 Seconds (26.0-36.0)
[2019-04-11 06:29] LABS: Calcium 8.8 mg/dL (8.6-10.3); Magnesium 1.9 mg/dL (1.6-2.6); Phosphorous 3.9 mg/dL (2.7-4.5); Potassium 3.8 mEq/L (3.5-5.1)
[2019-04-11] MEDS: Insulin LISPRO 300 UNITS/3 ML VIAL SQ SCH ×3 (07:47→16:28)
[2019-04-11] MEDS: BuPROPion XL (24 HR) 150 MG TABLET PO SCH (07:48)
[2019-04-11] MEDS: Pantoprazole 40 MG VIAL IVP SCH (07:48)
[2019-04-11] MEDS ORDERED: Furosemide 40 MG/4 ML VIAL IVP SCH ×2 (08:00→09:00)
[2019-04-11] MEDS ORDERED: Aspirin 325 MG TABLET PO SCH (09:00)
[2019-04-11] MEDS ORDERED: Perflutren Lipid Microsphere 1.3 ML in 0.9 % Sodium Chloride 8.7 ML IVP ONE (09:20)
[2019-04-11] MEDS ORDERED: NON-FORMULARY MEDICATION 1 EACH EACH (Nifedipine [Nifedipine Er] 30 MG) PO SCH (12:45)
[2019-04-11] MEDS ORDERED: NIFEdipine XL (24 HR) 60 MG TAB.ER.24 PO SCH (12:45)
[2019-04-11] MEDS: hydrALAZINE 25 MG TABLET PO SCH ×2 (15:14→21:14)
[2019-04-11] MEDS ORDERED: Metoprolol XL (24 HR) Succ 25 MG TAB.ER.24H PO ONE (15:31)
[2019-04-11] MEDS: Furosemide 40 MG/4 ML VIAL IVP SCH (16:30)
[2019-04-11] MEDS: Insulin DETEMIR 100 UNIT/ML X5UNITS SQ SCH (21:14)
[2019-04-12] MEDS: *HR* Heparin 5,000 UNIT/ML VIAL SQ SCH ×2 (05:43→17:19)
[2019-04-12] MEDS: hydrALAZINE 25 MG TABLET PO SCH ×3 (05:44→23:12)
[2019-04-12 07:14] LABS: Calcium 9.3 mg/dL (8.6-10.3); Magnesium 1.7 mg/dL (1.6-2.6); Potassium 3.6 mEq/L (3.5-5.1)
[2019-04-12] MEDS ORDERED: hydrALAZINE 25 MG TABLET PO SCH (07:45)
[2019-04-12] MEDS: Insulin LISPRO 300 UNITS/3 ML VIAL SQ SCH ×4 (08:13→18:18)
[2019-04-12] MEDS: Furosemide 40 MG/4 ML VIAL IVP SCH ×2 (08:14→17:19)
[2019-04-12] MEDS: Pantoprazole 40 MG VIAL IVP SCH (08:14)
[2019-04-12] MEDS: Aspirin 81 MG TAB.CHEW PO SCH (08:14)
[2019-04-12] MEDS: NIFEdipine XL (24 HR) 60 MG TAB.ER.24 PO SCH ×2 (08:14→09:03)
[2019-04-12] MEDS: BuPROPion XL (24 HR) 150 MG TABLET PO SCH (08:15)
[2019-04-12] MEDS ORDERED: Metoprolol XL (24 HR) Succ 50 MG TAB.ER.24H PO SCH (09:00)
[2019-04-12] MEDS ORDERED: Nitroglycerin 0.4 MG TAB.SUBL SL PRN (11:10)
[2019-04-12] MEDS ORDERED: NON-FORMULARY MEDICATION 1 EACH EACH (Meclizine Hcl [Verticalm] 25 MG) PO PRN (17:49)
[2019-04-12] MEDS ORDERED: Sennosides 8.6 MG TABLET PO PRN (17:49)
[2019-04-12] MEDS ORDERED: Melatonin 3 MG TABLET PO PRN (17:49)
[2019-04-12] MEDS ORDERED: Insulin LISPRO 300 UNITS/3 ML VIAL SQ SCH (18:00)
[2019-04-12] MEDS ORDERED: NON-FORMULARY MEDICATION 1 EACH EACH (Gabapentin [Neurontin] 800 MG) PO SCH (21:00)
[2019-04-12] MEDS ORDERED: Insulin Human Regular 10 UNIT in 0.9 % Sodium Chloride 10 ML IV ONE (22:18)
[2019-04-12] MEDS: Methocarbamol 500 MG TABLET PO SCH (23:12)
[2019-04-13] MEDS: *HR* Heparin 5,000 UNIT/ML VIAL SQ SCH ×2 (05:31→16:35)
[2019-04-13 07:52] LABS: Calcium 9.1 mg/dL (8.6-10.3); Potassium 3.9 mEq/L (3.5-5.1)
[2019-04-13 07:53] LABS: Chol/HDL Ratio 4.2 (0-4.9)
[2019-04-13] MEDS ORDERED: BuPROPion XL (24 HR) 150 MG TABLET PO SCH (09:00)
[2019-04-13] MEDS ORDERED: NON-FORMULARY MEDICATION 1 EACH EACH (Duloxetine Hcl [Cymbalta] 60 MG) PO SCH (09:00)
[2019-04-13] MEDS ORDERED: Insulin DETEMIR 100 UNIT/ML X5UNITS SQ SCH (09:00)
[2019-04-13] MEDS: Insulin LISPRO 300 UNITS/3 ML VIAL SQ SCH ×4 (09:06→21:52)
[2019-04-13] MEDS: hydrALAZINE 25 MG TABLET PO SCH ×2 (09:13→16:35)
[2019-04-13] MEDS: Cholecalciferol (D-3) 1,000 UNIT (25MCG) TABLET PO SCH (09:15)
[2019-04-13] MEDS: NIFEdipine XL (24 HR) 60 MG TAB.ER.24 PO SCH (09:17)
[2019-04-13] MEDS: Aspirin 81 MG TAB.CHEW PO SCH (09:17)
[2019-04-13] MEDS: Loratadine 10 MG TABLET PO SCH (09:17)
[2019-04-13] MEDS: Furosemide 40 MG/4 ML VIAL IVP SCH (09:21)
[2019-04-13] MEDS: BuPROPion XL (24 HR) 150 MG TABLET PO SCH (09:45)
[2019-04-13] MEDS: Insulin DETEMIR 100 UNIT/ML X5UNITS SQ SCH (09:45)
[2019-04-13] MEDS: Methocarbamol 500 MG TABLET PO SCH ×2 (09:45→16:34)
[2019-04-13 11:16] LABS: Hemoglobin 10.4 g/dL (12.9-16.9); Mean Corpuscular HGB Conc 33.5 g/dL (31.6-35.5); Mean Corpuscular Hemoglobin 29.4 pg (28.0-33.3); Mean Corpuscular Volume 87.6 fL (83.0-100.0); Mean Platelet Volume 11.5 fL (9.4-12.4); Platelet Count 196 K/mcL (140-400); Red Blood Count 3.54 M/mcL (4.19-5.50); Red Cell Distribution Width 13.7 % (11.5-14.5); White Blood Count 7.4 K/mcL (4.3-11.1)
[2019-04-13 16:18] LABS: Bilirubin,Urine Negative (Negative); Blood,Urine Negative (Negative); Clarity,Urine Cloudy (Clear); Color,Urine Yellow (Yellow); Glucose,Urine (UA) Normal (Normal); Ketones,Urine Negative (Negative); Leukocyte Esterase,Urine Large (Negative); Nitrite,Urine Negative (Negative); PH,Urine 5.5 pH Units (5.0-8.0); Protein,Urine >=300 mg/dL (Neg-Trace); Specific Gravity,Urine 1.017 (1.010-1.025); Urobilinogen,Urine Normal (Normal)
[2019-04-13 16:21] LABS: Bacteria,Urine Many per hpf (None-Few); Hyaline Casts,Urine None Seen per lpf (None-Few); RBC,Urine 15-30 per hpf (0-3); Squamous Epithelial Cell,Urine Moderate per lpf (None-Few); WBC,Urine TNTC per hpf (0-3)
[2019-04-13] MEDS: Albumin 25% 25gram/100mL 25 GM/100 ML IV.SOLN IVC SCH ×2 (16:42→18:06)
[2019-04-13 16:44] LABS: Protein/Creatinine Ratio,Urine 1.68 mg/mg (0.00-0.20); Sodium, Urine 39.5 mEq/L
[2019-04-13] MEDS: cefTRIAXone 1,000 MG in Water for inj. (sterile) 10 ML IVP SCH (21:19)
[2019-04-14] MEDS: Methocarbamol 500 MG TABLET PO SCH ×2 (00:30→19:58)
[2019-04-14] MEDS: hydrALAZINE 25 MG TABLET PO SCH ×3 (00:30→19:55)
[2019-04-14] MEDS: *HR* Heparin 5,000 UNIT/ML VIAL SQ SCH ×2 (05:50→19:51)
[2019-04-14] MEDS: Albumin 25% 25gram/100mL 25 GM/100 ML IV.SOLN IVC SCH ×2 (05:53→20:04)
[2019-04-14] MEDS ORDERED: Albumin 25% 25gram/100mL 25 GM/100 ML IV.SOLN ONE (14:35)
[2019-04-14 18:55] LABS: Folate 19.7 ng/mL (3.0-16.0)
[2019-04-14 18:56] LABS: % Iron Saturation 41 % (20-55); Iron 88 mcg/dL (65-175); Transferrin 152 mg/dL (203-362)
[2019-04-14 18:58] LABS: Ferritin 166 ng/mL (20-250)
[2019-04-14] MEDS: BuPROPion XL (24 HR) 150 MG TABLET PO SCH (19:49)
[2019-04-14] MEDS: Aspirin 81 MG TAB.CHEW PO SCH (19:52)
[2019-04-14] MEDS: NIFEdipine XL (24 HR) 60 MG TAB.ER.24 PO SCH (19:54)
[2019-04-14] MEDS: Loratadine 10 MG TABLET PO SCH (19:57)
[2019-04-14] MEDS: Cholecalciferol (D-3) 1,000 UNIT (25MCG) TABLET PO SCH (19:57)
[2019-04-14] MEDS: Insulin LISPRO 300 UNITS/3 ML VIAL SQ SCH ×3 (19:59→21:08)
[2019-04-14] MEDS: Insulin DETEMIR 100 UNIT/ML X5UNITS SQ SCH (20:02)
[2019-04-14 20:12] LABS: Calcium 8.8 mg/dL (8.6-10.3); Potassium 3.8 mEq/L (3.5-5.1)
[2019-04-14] MEDS: cefTRIAXone 1,000 MG in Water for inj. (sterile) 10 ML IVP SCH (21:07)
[2019-04-15] MEDS: hydrALAZINE 25 MG TABLET PO SCH ×4 (00:07→23:48)
[2019-04-15] MEDS: Methocarbamol 500 MG TABLET PO SCH ×4 (00:08→23:48)
[2019-04-15] MEDS: *HR* Heparin 5,000 UNIT/ML VIAL SQ SCH ×2 (05:30→19:02)
[2019-04-15] MEDS: Insulin LISPRO 300 UNITS/3 ML VIAL SQ SCH ×4 (07:57→21:22)
[2019-04-15] MEDS: NIFEdipine XL (24 HR) 60 MG TAB.ER.24 PO SCH (07:58)
[2019-04-15] MEDS: Aspirin 81 MG TAB.CHEW PO SCH (07:58)
[2019-04-15] MEDS: Loratadine 10 MG TABLET PO SCH (07:58)
[2019-04-15] MEDS: BuPROPion XL (24 HR) 150 MG TABLET PO SCH (07:59)
[2019-04-15] MEDS: Cholecalciferol (D-3) 1,000 UNIT (25MCG) TABLET PO SCH (07:59)
[2019-04-15] MEDS: Insulin DETEMIR 100 UNIT/ML X5UNITS SQ SCH (08:05)
[2019-04-15 10:19] LABS: Potassium 3.8 mEq/L (3.5-5.1)
[2019-04-15] MEDS ORDERED: Insulin DETEMIR 100 UNIT/ML X5UNITS SQ ONE (11:24)
[2019-04-15] MEDS ORDERED: SODIUM CHLORIDE/NAHCO3/KCL/PEG 4,000 ML SOLN.RECON PO ONE (17:00)
[2019-04-16] MEDS: *HR* Heparin 5,000 UNIT/ML VIAL SQ SCH ×2 (05:02→18:27)
[2019-04-16 06:30] LABS: Basophils % 0.7 %; Eosinophils # 0.4 K/mcL (0.0-0.6); Eosinophils % 7.1 %; Hematocrit 28.7 % (37.5-50.1); Hemoglobin 9.8 g/dL (12.9-16.9); Immature Granulocytes % 0.8 % (0-4); Lymphocytes # 1.4 K/mcL (0.6-4.6); Lymphocytes % 23.7 %; Mean Corpuscular HGB Conc 34.1 g/dL (31.6-35.5); Mean Corpuscular Hemoglobin 29.9 pg (28.0-33.3); Mean Corpuscular Volume 87.5 fL (83.0-100.0); Mean Platelet Volume 10.8 fL (9.4-12.4); Monocytes # 0.3 K/mcL (0.0-1.3); Monocytes % 5.6 %; Neutrophils # 3.8 K/mcL (1.6-8.9); Platelet Count 169 K/mcL (140-400); Red Blood Count 3.28 M/mcL (4.19-5.50); Red Cell Distribution Width 13.6 % (11.5-14.5); Segmented Neutrophils % 62.1 %; White Blood Count 6.1 K/mcL (4.3-11.1)
[2019-04-16 06:51] LABS: Albumin 3.8 g/dL (3.5-5.7); Calcium 8.6 mg/dL (8.6-10.3); Phosphorous 4.3 mg/dL (2.7-4.5); Potassium 3.8 mEq/L (3.5-5.1)
[2019-04-16] MEDS: BuPROPion XL (24 HR) 150 MG TABLET PO SCH (09:32)
[2019-04-16] MEDS: NIFEdipine XL (24 HR) 60 MG TAB.ER.24 PO SCH (09:32)
[2019-04-16] MEDS: Loratadine 10 MG TABLET PO SCH (09:33)
[2019-04-16] MEDS: Aspirin 81 MG TAB.CHEW PO SCH (09:33)
[2019-04-16] MEDS: Methocarbamol 500 MG TABLET PO SCH ×2 (09:33→15:40)
[2019-04-16] MEDS: Cholecalciferol (D-3) 1,000 UNIT (25MCG) TABLET PO SCH (09:33)
[2019-04-16] MEDS: hydrALAZINE 25 MG TABLET PO SCH ×2 (09:33→15:40)
[2019-04-16] MEDS: Insulin LISPRO 300 UNITS/3 ML VIAL SQ SCH ×4 (09:41→21:14)
[2019-04-16] MEDS: Insulin DETEMIR 100 UNIT/ML X5UNITS SQ SCH (09:41)
[2019-04-16] MEDS ORDERED: Propofol 500 MG/50 ML INFUS..BTL ONE (13:19)
[2019-04-16] MEDS ORDERED: Lidocaine -MPF 2% 2 ML VIAL ONE (13:20)
[2019-04-16 16:07] LABS: Complement C3 129 mg/dL (87-200)
[2019-04-16 16:29] LABS: Bilirubin,Urine Negative (Negative); Blood,Urine Negative (Negative); Clarity,Urine Cloudy (Clear); Color,Urine Yellow (Yellow); Glucose,Urine (UA) Normal (Normal); Ketones,Urine Negative (Negative); Leukocyte Esterase,Urine Small (Negative); Nitrite,Urine Negative (Negative); PH,Urine 5.5 pH Units (5.0-8.0); Protein,Urine >=300 mg/dL (Neg-Trace); Specific Gravity,Urine 1.013 (1.010-1.025); Urobilinogen,Urine Normal (Normal)
[2019-04-16 16:31] LABS: Bacteria,Urine None Seen per hpf (None-Few); Hyaline Casts,Urine Few per lpf (None-Few); Squamous Epithelial Cell,Urine Many per lpf (None-Few); WBC,Urine 30-50 per hpf (0-3)
[2019-04-16 16:46] LABS: Protein/Creatinine Ratio,Urine 2.22 mg/mg (0.00-0.20)
[2019-04-16 17:11] LABS: Hepatitis B Surface Antigen Nonreactive (Nonreactive)
[2019-04-16 17:39] LABS: Hepatitis B Core IgM Nonreactive (Nonreactive)
[2019-04-16 17:41] LABS: Hepatitis A Antibody IgM Nonreactive (Nonreactive); Hepatitis C Virus Antibody Nonreactive (Nonreactive)
[2019-04-17] MEDS: hydrALAZINE 25 MG TABLET PO SCH ×3 (00:46→15:54)
[2019-04-17] MEDS: Methocarbamol 500 MG TABLET PO SCH ×3 (00:46→15:54)
[2019-04-17] MEDS: *HR* Heparin 5,000 UNIT/ML VIAL SQ SCH ×2 (05:09→17:53)
[2019-04-17 05:33] LABS: Basophils # 0.1 K/mcL (0.0-0.2); Basophils % 0.9 %; Eosinophils # 0.5 K/mcL (0.0-0.6); Eosinophils % 8.2 %; Hematocrit 28.1 % (37.5-50.1); Hemoglobin 9.6 g/dL (12.9-16.9); Immature Granulocytes % 0.7 % (0-4); Lymphocytes # 1.7 K/mcL (0.6-4.6); Lymphocytes % 29.8 %; Mean Corpuscular HGB Conc 34.2 g/dL (31.6-35.5); Mean Corpuscular Hemoglobin 29.5 pg (28.0-33.3); Mean Corpuscular Volume 86.5 fL (83.0-100.0); Mean Platelet Volume 10.4 fL (9.4-12.4); Monocytes # 0.3 K/mcL (0.0-1.3); Monocytes % 5.4 %; Neutrophils # 3.2 K/mcL (1.6-8.9); Platelet Count 163 K/mcL (140-400); Red Blood Count 3.25 M/mcL (4.19-5.50); Red Cell Distribution Width 13.7 % (11.5-14.5); White Blood Count 5.7 K/mcL (4.3-11.1)
[2019-04-17 06:11] LABS: Calcium 8.6 mg/dL (8.6-10.3); Potassium 3.8 mEq/L (3.5-5.1)
[2019-04-17] MEDS: Loratadine 10 MG TABLET PO SCH (08:26)
[2019-04-17] MEDS: Aspirin 81 MG TAB.CHEW PO SCH (08:27)
[2019-04-17] MEDS: NIFEdipine XL (24 HR) 60 MG TAB.ER.24 PO SCH (08:27)
[2019-04-17] MEDS: BuPROPion XL (24 HR) 150 MG TABLET PO SCH (08:27)
[2019-04-17] MEDS: Cholecalciferol (D-3) 1,000 UNIT (25MCG) TABLET PO SCH (08:27)
[2019-04-17] MEDS: Insulin LISPRO 300 UNITS/3 ML VIAL SQ SCH ×4 (08:27→20:46)
[2019-04-17] MEDS: Insulin DETEMIR 100 UNIT/ML X5UNITS SQ SCH (08:53)
[2019-04-18] MEDS: Methocarbamol 500 MG TABLET PO SCH ×2 (00:13→08:58)
[2019-04-18] MEDS: hydrALAZINE 25 MG TABLET PO SCH ×2 (00:13→08:58)
[2019-04-18] MEDS: *HR* Heparin 5,000 UNIT/ML VIAL SQ SCH (04:41)
[2019-04-18 07:34] LABS: Potassium 4.2 mEq/L (3.5-5.1)
[2019-04-18] MEDS: Insulin LISPRO 300 UNITS/3 ML VIAL SQ SCH ×2 (08:56→12:59)
[2019-04-18] MEDS: NIFEdipine XL (24 HR) 60 MG TAB.ER.24 PO SCH (08:58)
[2019-04-18] MEDS: Aspirin 81 MG TAB.CHEW PO SCH (08:59)
[2019-04-18] MEDS: Loratadine 10 MG TABLET PO SCH (08:59)
[2019-04-18] MEDS: Cholecalciferol (D-3) 1,000 UNIT (25MCG) TABLET PO SCH (08:59)
[2019-04-18] MEDS ORDERED: Cyanocobalamin (B-12) 1,000 MCG TABLET PO SCH (09:00)
[2019-04-18] MEDS: Insulin DETEMIR 100 UNIT/ML X5UNITS SQ SCH (09:05)
[2019-04-18] MEDS: BuPROPion XL (24 HR) 150 MG TABLET PO SCH (09:20)
[2019-04-18 09:22] LABS: Basophils % 0.7 %; Eosinophils # 0.4 K/mcL (0.0-0.6); Eosinophils % 7.1 %; Hematocrit 28.4 % (37.5-50.1); Hemoglobin 9.7 g/dL (12.9-16.9); Immature Granulocytes % 0.5 % (0-4); Lymphocytes # 1.2 K/mcL (0.6-4.6); Lymphocytes % 20.9 %; Mean Corpuscular HGB Conc 34.2 g/dL (31.6-35.5); Mean Corpuscular Hemoglobin 29.7 pg (28.0-33.3); Mean Corpuscular Volume 86.9 fL (83.0-100.0); Mean Platelet Volume 10.8 fL (9.4-12.4); Monocytes # 0.4 K/mcL (0.0-1.3); Monocytes % 6.5 %; Neutrophils # 3.8 K/mcL (1.6-8.9); Platelet Count 166 K/mcL (140-400); Red Blood Count 3.27 M/mcL (4.19-5.50); Red Cell Distribution Width 13.5 % (11.5-14.5); Segmented Neutrophils % 64.3 %; White Blood Count 5.9 K/mcL (4.3-11.1)
[2019-04-18 10:13] LABS: Bilirubin,Urine Negative (Negative); Blood,Urine Negative (Negative); Clarity,Urine Clear (Clear); Color,Urine Yellow (Yellow); Glucose,Urine (UA) Normal (Normal); Ketones,Urine Negative (Negative); Leukocyte Esterase,Urine Small (Negative); Nitrite,Urine Negative (Negative); PH,Urine 5.5 pH Units (5.0-8.0); Protein,Urine >=300 mg/dL (Neg-Trace); Specific Gravity,Urine 1.012 (1.010-1.025); Urobilinogen,Urine Normal (Normal)
[2019-04-18 10:14] LABS: Bacteria,Urine None Seen per hpf (None-Few); Hyaline Casts,Urine None Seen per lpf (None-Few); RBC,Urine 0-3 per hpf (0-3); Squamous Epithelial Cell,Urine Many per lpf (None-Few); WBC,Urine 15-30 per hpf (0-3)
[2019-04-18 10:52] LABS: Sodium, Urine 22.8 mEq/L
[2019-04-18 11:34] VITALS: BP 137/69
[2019-04-18 12:15] LABS: Calcium 8.9 mg/dL (8.6-10.3); Potassium 4.4 mEq/L (3.5-5.1)
[2019-04-19 09:58] LABS: ANA IgG by ELISA NONE DETECTED (None Detected); Serine Protease-3 Antibody 2 AU/mL (0-19)
[2019-04-19 11:26] LABS: Kappa Qnt Free Light Chains 6.69 mg/dL (0.33-1.94); Lambda Qnt Free Light Chains 2.37 mg/dL (0.57-2.63)
== END 2019-04-18 16:39 | disposition left against medical advice (07) | DRG 280 ==
LOC: EMEROOARM 10:55 → 2ANU 10:55 → SUATTDRO 04-12 19:22
PROVIDERS: ADMIT Internal Medicine; ATTEND Internal Medicine

== ENCOUNTER 2019-05-02 09:10 | Inpatient (IN) ==
[2019-05-02] MEDS ORDERED: Aspirin 81 MG TAB.CHEW PO ONE (09:19)
[2019-05-02] MEDS: Nitroglycerin 0.4 MG TAB.SUBL SL PRN ×2 (09:28→09:34)
[2019-05-02 09:42] LABS: Basophils # 0.1 K/mcL (0.0-0.2); Eosinophils # 0.6 K/mcL (0.0-0.6); Eosinophils % 9.1 %; Hematocrit 32.4 % (37.5-50.1); Hemoglobin 10.7 g/dL (12.9-16.9); Immature Granulocytes % 0.3 % (0-4); Lymphocytes # 1.6 K/mcL (0.6-4.6); Lymphocytes % 25.9 %; Mean Corpuscular Hemoglobin 29.5 pg (28.0-33.3); Mean Corpuscular Volume 89.3 fL (83.0-100.0); Mean Platelet Volume 10.8 fL (9.4-12.4); Monocytes # 0.3 K/mcL (0.0-1.3); Monocytes % 5.3 %; Neutrophils # 3.5 K/mcL (1.6-8.9); Platelet Count 176 K/mcL (140-400); Red Blood Count 3.63 M/mcL (4.19-5.50); Red Cell Distribution Width 13.8 % (11.5-14.5); Segmented Neutrophils % 58.4 %
[2019-05-02 10:01] LABS: Potassium 4.3 mEq/L (3.5-5.1)
[2019-05-02 10:04] LABS: Troponin I 0.16 ng/mL (< 0.04)
[2019-05-02] MEDS ORDERED: *HR* Heparin 5,000 UNIT/ML VIAL IVP ONE (10:38)
[2019-05-02] MEDS ORDERED: *HR* Heparin 5,000 UNIT/ML VIAL IVP PRN (10:38)
[2019-05-02] MEDS ORDERED: Furosemide 20 MG/2 ML VIAL IVP ONE (10:53)
[2019-05-02] MEDS: Heparin 25,000 UNIT/250 ML D5W 25,000 UNIT/250 ML IV.SOLN IVC SCH (11:02)
[2019-05-02 11:12] LABS: INR 1.2; Prothrombin Time 13.3 Seconds (9.4-12.1)
[2019-05-02 11:15] LABS: Hematocrit 31.1 % (37.5-50.1); Hemoglobin 10.3 g/dL (12.9-16.9); Mean Corpuscular HGB Conc 33.1 g/dL (31.6-35.5); Mean Corpuscular Hemoglobin 29.5 pg (28.0-33.3); Mean Corpuscular Volume 89.1 fL (83.0-100.0); Mean Platelet Volume 10.8 fL (9.4-12.4); Platelet Count 168 K/mcL (140-400); Red Blood Count 3.49 M/mcL (4.19-5.50); Red Cell Distribution Width 13.9 % (11.5-14.5); White Blood Count 6.1 K/mcL (4.3-11.1)
[2019-05-02] MEDS ORDERED: Ondansetron 4 MG/2 ML VIAL IVP PRN (11:17)
[2019-05-02] MEDS ORDERED: Sennosides 8.6 MG TABLET PO PRN (11:19)
[2019-05-02] MEDS ORDERED: *HR* Dextrose 50 % in Water (Syg) 50 ML SYRINGE IVP PRN (11:23)
[2019-05-02] MEDS ORDERED: D5% in Water 1,000 ML IVC PRN (11:23)
[2019-05-02] MEDS ORDERED: Dextrose Gel 15 GM/37.5 ML TUBE PO PRN ×2 (11:23)
[2019-05-02] MEDS: NIFEdipine XL (24 HR) 30 MG TAB.ER.24 PO SCH (12:24)
[2019-05-02] MEDS: Insulin LISPRO 300 UNITS/3 ML VIAL SQ SCH ×4 (12:25→17:26)
[2019-05-02] MEDS: Gabapentin 100 MG CAPSULE PO SCH ×2 (15:06→20:20)
[2019-05-02] MEDS: *HR* Heparin 5,000 UNIT/ML VIAL IVP PRN (17:59)
[2019-05-02] MEDS: Insulin DETEMIR 100 UNIT/ML X5UNITS SQ SCH (20:13)
[2019-05-02] MEDS: Melatonin 3 MG TABLET PO PRN (20:20)
[2019-05-03 00:33] LABS: Basophils # 0.1 K/mcL (0.0-0.2); Basophils % 0.7 %; Eosinophils # 0.6 K/mcL (0.0-0.6); Eosinophils % 7.2 %; Hematocrit 31.5 % (37.5-50.1); Hemoglobin 10.4 g/dL (12.9-16.9); Immature Granulocytes % 0.4 % (0-4); Lymphocytes # 2.2 K/mcL (0.6-4.6); Lymphocytes % 26.9 %; Mean Corpuscular Hemoglobin 29.6 pg (28.0-33.3); Mean Corpuscular Volume 89.7 fL (83.0-100.0); Mean Platelet Volume 10.5 fL (9.4-12.4); Monocytes # 0.4 K/mcL (0.0-1.3); Monocytes % 4.8 %; Neutrophils # 4.9 K/mcL (1.6-8.9); Platelet Count 168 K/mcL (140-400); Red Blood Count 3.51 M/mcL (4.19-5.50); Red Cell Distribution Width 13.8 % (11.5-14.5); White Blood Count 8.2 K/mcL (4.3-11.1)
[2019-05-03 00:53] LABS: Calcium 9.1 mg/dL (8.6-10.3); Magnesium 1.8 mg/dL (1.6-2.6); Phosphorous 4.7 mg/dL (2.7-4.5)
[2019-05-03] MEDS: Heparin 25,000 UNIT/250 ML D5W 25,000 UNIT/250 ML IV.SOLN IVC SCH (05:12)
[2019-05-03] MEDS: Cholecalciferol (D-3) 1,000 UNIT (25MCG) TABLET PO SCH (08:43)
[2019-05-03] MEDS: NIFEdipine XL (24 HR) 30 MG TAB.ER.24 PO SCH (08:43)
[2019-05-03] MEDS: Gabapentin 100 MG CAPSULE PO SCH ×3 (08:44→20:37)
[2019-05-03] MEDS: BuPROPion XL (24 HR) 150 MG TABLET PO SCH (08:44)
[2019-05-03] MEDS: Aspirin 81 MG TAB.CHEW PO SCH (08:44)
[2019-05-03] MEDS: Insulin LISPRO 300 UNITS/3 ML VIAL SQ SCH ×6 (08:46→19:05)
[2019-05-03] MEDS ORDERED: Furosemide 20 MG/2 ML VIAL IVP SCH (09:00)
[2019-05-03] MEDS ORDERED: Loratadine 10 MG TABLET PO SCH (09:00)
[2019-05-03] MEDS ORDERED: amLODIPine 5 MG TABLET PO SCH (11:20)
[2019-05-03] MEDS: Furosemide 20 MG/2 ML VIAL IVP SCH ×2 (11:43→16:43)
[2019-05-03] MEDS: Insulin DETEMIR 100 UNIT/ML X5UNITS SQ SCH (20:37)
[2019-05-04 00:44] LABS: Bilirubin,Urine Negative (Negative); Blood,Urine Small (Negative); Clarity,Urine Clear (Clear); Color,Urine Yellow (Yellow); Glucose,Urine (UA) Normal (Normal); Ketones,Urine Negative (Negative); Leukocyte Esterase,Urine Trace (Negative); Nitrite,Urine Negative (Negative); PH,Urine 6.5 pH Units (5.0-8.0); Protein,Urine >=300 mg/dL (Neg-Trace); Specific Gravity,Urine 1.012 (1.010-1.025); Urobilinogen,Urine Normal (Normal)
[2019-05-04 00:46] LABS: Bacteria,Urine None Seen per hpf (None-Few); Hyaline Casts,Urine None Seen per lpf (None-Few); Squamous Epithelial Cell,Urine Moderate per lpf (None-Few)
[2019-05-04 00:48] LABS: Protein/Creatinine Ratio,Urine 9.1 mg/mg (0.00-0.20)
[2019-05-04] MEDS: Heparin 25,000 UNIT/250 ML D5W 25,000 UNIT/250 ML IV.SOLN IVC SCH ×2 (01:29→15:46)
[2019-05-04 05:58] LABS: Basophils % 0.7 %; Eosinophils # 0.5 K/mcL (0.0-0.6); Eosinophils % 9.2 %; Hematocrit 32.5 % (37.5-50.1); Hemoglobin 10.7 g/dL (12.9-16.9); Immature Granulocytes % 0.2 % (0-4); Lymphocytes # 1.6 K/mcL (0.6-4.6); Lymphocytes % 27.9 %; Mean Corpuscular HGB Conc 32.9 g/dL (31.6-35.5); Mean Corpuscular Hemoglobin 29.4 pg (28.0-33.3); Mean Corpuscular Volume 89.3 fL (83.0-100.0); Mean Platelet Volume 10.7 fL (9.4-12.4); Monocytes # 0.4 K/mcL (0.0-1.3); Monocytes % 7.2 %; Neutrophils # 3.2 K/mcL (1.6-8.9); Platelet Count 162 K/mcL (140-400); Red Blood Count 3.64 M/mcL (4.19-5.50); Red Cell Distribution Width 13.5 % (11.5-14.5); Segmented Neutrophils % 54.8 %; White Blood Count 5.9 K/mcL (4.3-11.1)
[2019-05-04 06:18] LABS: Calcium 9.6 mg/dL (8.6-10.3); Potassium 3.8 mEq/L (3.5-5.1)
[2019-05-04] MEDS ORDERED: 0.9 % Sodium Chloride 1,000 ML IVC SCH (09:30)
[2019-05-04] MEDS: Aspirin 81 MG TAB.CHEW PO SCH (09:49)
[2019-05-04] MEDS: BuPROPion XL (24 HR) 150 MG TABLET PO SCH (09:49)
[2019-05-04] MEDS: Cholecalciferol (D-3) 1,000 UNIT (25MCG) TABLET PO SCH (09:49)
[2019-05-04] MEDS: Gabapentin 100 MG CAPSULE PO SCH ×3 (09:49→21:07)
[2019-05-04] MEDS: Insulin LISPRO 300 UNITS/3 ML VIAL SQ SCH ×6 (09:50→18:58)
[2019-05-04] MEDS: NIFEdipine XL (24 HR) 30 MG TAB.ER.24 PO SCH (09:50)
[2019-05-04] MEDS: Furosemide 20 MG/2 ML VIAL IVP SCH ×2 (09:51→18:57)
[2019-05-04] MEDS ORDERED: 0.9 % Sodium Chloride 1,000 ML ONE ×2 (09:57→10:10)
[2019-05-04] MEDS ORDERED: *HR* FentaNYL (PF) 100 MCG/2 ML VIAL ONE (10:10)
[2019-05-04] MEDS ORDERED: Heparin 1,000 UNITS/500 mL 500 ML ONE (10:10)
[2019-05-04] MEDS ORDERED: *HR* Midazolam HCl 2 MG/2 ML VIAL ONE (10:10)
[2019-05-04] MEDS ORDERED: ISOVUE-370 200 ML INFUS..BTL ONE (10:11)
[2019-05-04] MEDS ORDERED: Nitroglycerin 1,000 MCG/10 ML VIAL IV ONE (10:11)
[2019-05-04] MEDS ORDERED: *HR* Heparin 10,000 UNIT/10 ML VIAL ONE (10:11)
[2019-05-04] MEDS ORDERED: *HR* Labetalol 100 MG/20 ML MDV ONE (10:45)
[2019-05-04] MEDS ORDERED: CeFAZolin Syr 3,000MG/30 ML 3,000 MG/30 ML SYRINGE IVPB ONE (12:58)
[2019-05-04 14:23] LABS: INR 1.2; Prothrombin Time 13.1 Seconds (9.4-12.1)
[2019-05-04 14:32] LABS: Chol/HDL Ratio 3.8 (0-4.9)
[2019-05-04 15:09] LABS: Estimated Average Glucose 157 mg/dl
[2019-05-04] MEDS: *HR* Heparin 5,000 UNIT/ML VIAL IVP PRN (15:25)
[2019-05-04] MEDS ORDERED: Perflutren Lipid Microsphere 1.3 ML in 0.9 % Sodium Chloride 8.7 ML IVP ONE (18:56)
[2019-05-04] MEDS ORDERED: Chlorhexidine Rinse 15 ML MOUTHWASH MM SCH (21:00)
[2019-05-04] MEDS: Insulin DETEMIR 100 UNIT/ML X5UNITS SQ SCH (21:08)
[2019-05-05 04:04] LABS: Basophils % 0.5 %; Eosinophils # 0.6 K/mcL (0.0-0.6); Eosinophils % 9.6 %; Hematocrit 28.9 % (37.5-50.1); Hemoglobin 9.6 g/dL (12.9-16.9); Immature Granulocytes % 0.2 % (0-4); Lymphocytes # 1.6 K/mcL (0.6-4.6); Lymphocytes % 28.4 %; Mean Corpuscular HGB Conc 33.2 g/dL (31.6-35.5); Mean Corpuscular Hemoglobin 29.4 pg (28.0-33.3); Mean Corpuscular Volume 88.7 fL (83.0-100.0); Mean Platelet Volume 10.9 fL (9.4-12.4); Monocytes # 0.3 K/mcL (0.0-1.3); Monocytes % 5.9 %; Neutrophils # 3.2 K/mcL (1.6-8.9); Platelet Count 143 K/mcL (140-400); Red Blood Count 3.26 M/mcL (4.19-5.50); Red Cell Distribution Width 13.5 % (11.5-14.5); Segmented Neutrophils % 55.4 %; White Blood Count 5.7 K/mcL (4.3-11.1)
[2019-05-05 04:22] LABS: Potassium 3.5 mEq/L (3.5-5.1)
[2019-05-05] MEDS: Heparin 25,000 UNIT/250 ML D5W 25,000 UNIT/250 ML IV.SOLN IVC SCH ×2 (05:26→16:49)
[2019-05-05] MEDS: Gabapentin 100 MG CAPSULE PO SCH ×3 (08:20→21:29)
[2019-05-05] MEDS: Cholecalciferol (D-3) 1,000 UNIT (25MCG) TABLET PO SCH (08:20)
[2019-05-05] MEDS: BuPROPion XL (24 HR) 150 MG TABLET PO SCH (08:20)
[2019-05-05] MEDS: Aspirin 81 MG TAB.CHEW PO SCH (08:20)
[2019-05-05] MEDS: NIFEdipine XL (24 HR) 30 MG TAB.ER.24 PO SCH (08:20)
[2019-05-05] MEDS: Furosemide 20 MG/2 ML VIAL IVP SCH ×2 (08:20→16:48)
[2019-05-05] MEDS: Insulin LISPRO 300 UNITS/3 ML VIAL SQ SCH ×6 (08:21→16:49)
[2019-05-05] MEDS ORDERED: NIFEdipine XL (24 HR) 30 MG TAB.ER.24 PO ONE (10:02)
[2019-05-05] MEDS: Melatonin 3 MG TABLET PO PRN (21:28)
[2019-05-05] MEDS: Insulin DETEMIR 100 UNIT/ML X5UNITS SQ SCH (21:29)
[2019-05-06 04:18] LABS: Basophils % 0.5 %; Eosinophils # 0.7 K/mcL (0.0-0.6); Eosinophils % 12.8 %; Hemoglobin 10.2 g/dL (12.9-16.9); Immature Granulocytes % 0.4 % (0-4); Lymphocytes # 1.7 K/mcL (0.6-4.6); Lymphocytes % 30.1 %; Mean Corpuscular Hemoglobin 29.3 pg (28.0-33.3); Mean Corpuscular Volume 86.2 fL (83.0-100.0); Mean Platelet Volume 10.8 fL (9.4-12.4); Monocytes # 0.3 K/mcL (0.0-1.3); Monocytes % 6.1 %; Neutrophils # 2.8 K/mcL (1.6-8.9); Platelet Count 155 K/mcL (140-400); Red Blood Count 3.48 M/mcL (4.19-5.50); Red Cell Distribution Width 13.4 % (11.5-14.5); Segmented Neutrophils % 50.1 %; White Blood Count 5.6 K/mcL (4.3-11.1)
[2019-05-06 04:35] LABS: Calcium 9.1 mg/dL (8.6-10.3); Potassium 3.5 mEq/L (3.5-5.1)
[2019-05-06] MEDS: Heparin 25,000 UNIT/250 ML D5W 25,000 UNIT/250 ML IV.SOLN IVC SCH ×2 (04:44→17:07)
[2019-05-06] MEDS: Insulin LISPRO 300 UNITS/3 ML VIAL SQ SCH ×6 (08:12→16:45)
[2019-05-06] MEDS: Furosemide 20 MG/2 ML VIAL IVP SCH (08:12)
[2019-05-06] MEDS: BuPROPion XL (24 HR) 150 MG TABLET PO SCH (08:13)
[2019-05-06] MEDS: Cholecalciferol (D-3) 1,000 UNIT (25MCG) TABLET PO SCH (08:13)
[2019-05-06] MEDS: Aspirin 81 MG TAB.CHEW PO SCH (08:13)
[2019-05-06] MEDS: Gabapentin 100 MG CAPSULE PO SCH ×3 (08:14→20:33)
[2019-05-06] MEDS: NIFEdipine XL (24 HR) 30 MG TAB.ER.24 PO SCH (08:15)
[2019-05-06 16:43] LABS: Total Volume 24 Hour,Urine 3.32 Liters (0.80-1.80)
[2019-05-06] MEDS: Insulin DETEMIR 100 UNIT/ML X5UNITS SQ SCH (20:33)
[2019-05-07] MEDS: Heparin 25,000 UNIT/250 ML D5W 25,000 UNIT/250 ML IV.SOLN IVC SCH ×2 (05:02→16:18)
[2019-05-07] MEDS: Insulin LISPRO 300 UNITS/3 ML VIAL SQ SCH ×6 (08:12→17:02)
[2019-05-07] MEDS: Cholecalciferol (D-3) 1,000 UNIT (25MCG) TABLET PO SCH (08:13)
[2019-05-07] MEDS: BuPROPion XL (24 HR) 150 MG TABLET PO SCH (08:15)
[2019-05-07] MEDS: Gabapentin 100 MG CAPSULE PO SCH ×3 (08:15→20:25)
[2019-05-07] MEDS: NIFEdipine XL (24 HR) 30 MG TAB.ER.24 PO SCH (08:15)
[2019-05-07] MEDS: Aspirin 81 MG TAB.CHEW PO SCH (08:16)
[2019-05-07 08:18] LABS: Calcium 9.3 mg/dL (8.6-10.3); Potassium 3.8 mEq/L (3.5-5.1)
[2019-05-07] MEDS: Chlorhexidine Rinse 15 ML MOUTHWASH MM SCH (20:25)
[2019-05-07] MEDS: Insulin DETEMIR 100 UNIT/ML X5UNITS SQ SCH (20:25)
[2019-05-07 23:46] LABS: Urine Collection Volume RANDOM mL
[2019-05-08] MEDS: Heparin 25,000 UNIT/250 ML D5W 25,000 UNIT/250 ML IV.SOLN IVC SCH (02:52)
[2019-05-08 05:28] LABS: Basophils % 0.6 %; Eosinophils # 0.6 K/mcL (0.0-0.6); Eosinophils % 11.9 %; Hematocrit 26.8 % (37.5-50.1); Hemoglobin 9.1 g/dL (12.9-16.9); Immature Granulocytes % 0.4 % (0-4); Lymphocytes # 1.6 K/mcL (0.6-4.6); Lymphocytes % 30.6 %; Mean Corpuscular Hemoglobin 29.2 pg (28.0-33.3); Mean Corpuscular Volume 85.9 fL (83.0-100.0); Mean Platelet Volume 10.9 fL (9.4-12.4); Monocytes # 0.4 K/mcL (0.0-1.3); Monocytes % 7.7 %; Neutrophils # 2.6 K/mcL (1.6-8.9); Platelet Count 121 K/mcL (140-400); Red Blood Count 3.12 M/mcL (4.19-5.50); Red Cell Distribution Width 13.5 % (11.5-14.5); Segmented Neutrophils % 48.8 %; White Blood Count 5.3 K/mcL (4.3-11.1)
[2019-05-08 05:44] LABS: Calcium 9.4 mg/dL (8.6-10.3); Potassium 3.9 mEq/L (3.5-5.1)
[2019-05-08] MEDS ORDERED: Aspirin 81 MG TAB.CHEW PO ONE (06:00)
[2019-05-08] MEDS: Chlorhexidine Rinse 15 ML MOUTHWASH MM SCH ×2 (06:44→20:29)
[2019-05-08] MEDS ORDERED: Nitroglycerin 25 MG/250 ML INFUS..BTL IVC ONE (06:47)
[2019-05-08] MEDS ORDERED: *HR* FentaNYL (PF) 1,000 MCG/20 ML VIAL ONE (06:49)
[2019-05-08] MEDS ORDERED: *HR* Midazolam HCl 5 MG/5 ML VIAL IVP ONE (06:49)
[2019-05-08] MEDS ORDERED: *HR* Propofol 200 MG/20 ML VIAL IVP ONE (06:49)
[2019-05-08] MEDS ORDERED: *HR* Rocuronium Bromide 50 MG/5 ML VIAL ONE ×3 (06:54→11:11)
[2019-05-08] MEDS ORDERED: Famotidine 20 MG/2 ML VIAL ONE (06:54)
[2019-05-08] MEDS ORDERED: *HR* Magnesium Sulfate 1 GM/2 ML VIAL ONE (06:54)
[2019-05-08] MEDS ORDERED: Lidocaine 2% Syringe 100 MG/5 ML ONE (06:54)
[2019-05-08] MEDS ORDERED: *HR* PHENYLEPHRINE 1,000 MCG/10 ML SYRINGE IVP ONE (06:54)
[2019-05-08] MEDS ORDERED: Tranexamic Acid 1,000 MG/10 ML VIAL ONE (06:54)
[2019-05-08] MEDS ORDERED: Dexamethasone 4 MG/ML VIAL ONE (06:54)
[2019-05-08] MEDS ORDERED: CeFAZolin Syr 3,000MG/30 ML 3,000 MG/30 ML SYRINGE IVPB ONE (07:00)
[2019-05-08] MEDS ORDERED: Sodium Bicarbonate 50 MEQ/50 ML VIAL IVC ONE (07:38)
[2019-05-08] MEDS ORDERED: *HR* Heparin 10,000 UNIT/10 ML VIAL IV ONE (07:38)
[2019-05-08] MEDS ORDERED: *HR* Phenylephrine 10 MG/ML VIAL IVC ONE (07:38)
[2019-05-08] MEDS ORDERED: Lidocaine 2% Syringe 100 MG/5 ML IV ONE (07:38)
[2019-05-08] MEDS ORDERED: Mannitol 25% vial 12.5 GM/50 ML VIAL IVP ONE (07:38)
[2019-05-08] MEDS ORDERED: Tranexamic Acid 1,000 MG/10 ML VIAL IVP ONE (07:38)
[2019-05-08] MEDS ORDERED: *HR* Magnesium Sulfate 2 GM/50 ML PIGGYBACK IVPB ONE (07:38)
[2019-05-08] MEDS ORDERED: Albumin Human 25% 25 GM/100 ML IV.SOLN IV ONE (07:38)
[2019-05-08] MEDS ORDERED: Dextrose 50 % in Water (Vial) 30 ML, Sodium Bicarbonate 20 MEQ, Lidocaine 1% 5 ML, Insu... TH ONE ×3 (07:45)
[2019-05-08] MEDS ORDERED: Insulin Human Regular 100 UNIT in 0.9 % Sodium Chloride 100 ML IV PRN (07:45)
[2019-05-08] MEDS ORDERED: Heparin 15,000 UNIT in 0.9 % Sodium Chloride 500 ML IV ONE (07:45)
[2019-05-08] MEDS ORDERED: Dextrose 50 % in Water (Vial) 30 ML, Sodium Bicarbonate 20 MEQ, Potassium Chloride 15 M... TH ONE (07:45)
[2019-05-08] MEDS ORDERED: Norepinephrine 4 MG in 0.9 % Sodium Chloride 250 ML IVC PRN (07:45)
[2019-05-08 08:45] LABS: ABG Base Excess -2 mEq/L (-2 to 3); ABG Chloride 107 mEq/L (98-107); ABG Glucose 101 mg/dL (60-95); ABG HCO3 24 mEq/L (21-27); ABG Ionized Calcium 1.24 mmol/L (1.15-1.35); ABG Oxygen Saturation 100 % (95-98); ABG PCO2 48 mmHg (35-45); ABG PH 7.31 pH Units (7.32-7.45); ABG PO2 181 mmHg (85-104); ABG TCO2 25 mEq/L (20-26)
[2019-05-08 09:35] LABS: ABG Base Excess -2 mEq/L (-2 to 3); ABG Chloride 111 mEq/L (98-107); ABG Glucose 115 mg/dL (60-95); ABG HCO3 23 mEq/L (21-27); ABG Ionized Calcium 1.22 mmol/L (1.15-1.35); ABG Oxygen Saturation 100 % (95-98); ABG PCO2 44 mmHg (35-45); ABG PH 7.34 pH Units (7.32-7.45); ABG PO2 255 mmHg (85-104); ABG TCO2 25 mEq/L (20-26)
[2019-05-08] MEDS ORDERED: Calcium Gluconate 1,000 MG/10 ML VIAL ONE (09:43)
[2019-05-08] MEDS ORDERED: Protamine Sulfate 250 MG/25 ML VIAL IVP ONE (09:43)
[2019-05-08 10:01] LABS: VBG Base Excess 0 mEq/L; VBG Chloride 107 mEq/L (98-107); VBG Glucose 149 mg/dl (65-95); VBG HCO3 26 mEq/L (21-27); VBG Ionized Calcium 1.14 mmol/L (1.15-1.35); VBG Oxygen Saturation 71 %; VBG PCO2 45 mmHg (41-51); VBG PH 7.37 pH Units (7.32-7.42); VBG PO2 39 mmHg (25-50); VBG Total CO2 27 mEq/L
[2019-05-08] MEDS ORDERED: *HR* Amiodarone 150 MG/3 ML VIAL IVPB ONE (10:28)
[2019-05-08] MEDS ORDERED: Amiodarone Premix 360 MG/200 ML BAG IVC ONE (10:28)
[2019-05-08 10:30] LABS: ABG Base Excess 2 mEq/L (-2 to 3); ABG Chloride 108 mEq/L (98-107); ABG Glucose 121 mg/dL (60-95); ABG HCO3 26 mEq/L (21-27); ABG Ionized Calcium 1.18 mmol/L (1.15-1.35); ABG Oxygen Saturation 100 % (95-98); ABG PCO2 40 mmHg (35-45); ABG PH 7.42 pH Units (7.32-7.45); ABG PO2 297 mmHg (85-104); ABG TCO2 27 mEq/L (20-26)
[2019-05-08 11:10] LABS: ABG Base Excess 1 mEq/L (-2 to 3); ABG Chloride 107 mEq/L (98-107); ABG Glucose 118 mg/dL (60-95); ABG HCO3 26 mEq/L (21-27); ABG Ionized Calcium 1.24 mmol/L (1.15-1.35); ABG Oxygen Saturation 100 % (95-98); ABG PCO2 43 mmHg (35-45); ABG PH 7.39 pH Units (7.32-7.45); ABG PO2 289 mmHg (85-104); ABG TCO2 27 mEq/L (20-26)
[2019-05-08 11:17] LABS: ABG Base Excess -1 mEq/L (-2 to 3); ABG Chloride 108 mEq/L (98-107); ABG Glucose 117 mg/dL (60-95); ABG HCO3 24 mEq/L (21-27); ABG Ionized Calcium 1.19 mmol/L (1.15-1.35); ABG Oxygen Saturation 100 % (95-98); ABG PCO2 39 mmHg (35-45); ABG PH 7.39 pH Units (7.32-7.45); ABG PO2 184 mmHg (85-104); ABG TCO2 25 mEq/L (20-26)
[2019-05-08] MEDS ORDERED: Albumin Human 5% 25.0 GM/500 ML VIAL ONE (11:26)
[2019-05-08] MEDS: Amiodarone Premix 360 MG/200 ML BAG IVC SCH ×3 (12:00→21:48)
[2019-05-08] MEDS: Nitroglycerin 25 MG/250 ML INFUS..BTL IVC SCH ×2 (12:01→18:42)
[2019-05-08] MEDS ORDERED: Insulin Regular, Human 100 UNIT/ML IV PRN (12:06)
[2019-05-08] MEDS ORDERED: *HR* Dextrose 50 % in Water (Syg) 50 ML SYRINGE IVP PRN (12:06)
[2019-05-08] MEDS ORDERED: Potassium Chloride 40 MEQ/200 ML BAG IVPB PRN (12:06)
[2019-05-08] MEDS ORDERED: Acetaminophen 325 MG TABLET PO PRN (12:08)
[2019-05-08] MEDS ORDERED: Acetaminophen 650 MG RECTAL SUPP RC PRN (12:08)
[2019-05-08] MEDS ORDERED: Calcium Gluconate 1gm/50mL 1 GM/50 ML BAG IVPB PRN (12:08)
[2019-05-08] MEDS ORDERED: *HR* FentaNYL (PF) 100 MCG/2 ML VIAL IVP PRN (12:08)
[2019-05-08] MEDS ORDERED: Naloxone 0.4 MG/ML INJ IVP PRN (12:08)
[2019-05-08] MEDS: Insulin Human Regular 100 UNIT in 0.9 % Sodium Chloride 100 ML IVC SCH (12:10)
[2019-05-08] MEDS ORDERED: 0.9 % Sodium Chloride w KCl 20 MEQ/1,000 ML MLS IVC SCH (12:15)
[2019-05-08] MEDS ORDERED: Norepinephrine 4 MG in 0.9 % Sodium Chloride 250 ML IVC SCH (12:15)
[2019-05-08] MEDS ORDERED: niCARdipine 20 MG/200 ML MLS IVC ONE (12:16)
[2019-05-08] MEDS: niCARdipine 20 MG/200 ML MLS IVC SCH ×4 (12:20→21:47)
[2019-05-08 12:25] LABS: ABG Base Excess 0 mEq/L (-2 to 3); ABG HCO3 25 mEq/L (21-27); ABG Oxygen Saturation 99 % (95-98); ABG PCO2 39 mmHg (35-45); ABG PH 7.41 pH Units (7.32-7.45); ABG PO2 118 mmHg (85-104); ABG TCO2 26 mEq/L (20-26); Blood Gas Modality ASSIST CONTROL; Blood Gas VT 550 cc
[2019-05-08 12:30] LABS: Basophils % 0.4 %; Eosinophils # 0.4 K/mcL (0.0-0.6); Eosinophils % 3.6 %; Hematocrit 29.2 % (37.5-50.1); Hemoglobin 10.3 g/dL (12.9-16.9); Immature Granulocytes % 1.1 % (0-4); Lymphocytes # 1.1 K/mcL (0.6-4.6); Lymphocytes % 11.8 %; Mean Corpuscular HGB Conc 35.3 g/dL (31.6-35.5); Mean Corpuscular Hemoglobin 30.3 pg (28.0-33.3); Mean Corpuscular Volume 85.9 fL (83.0-100.0); Mean Platelet Volume 9.8 fL (9.4-12.4); Monocytes # 0.5 K/mcL (0.0-1.3); Monocytes % 4.7 %; Neutrophils # 7.6 K/mcL (1.6-8.9); Platelet Count 131 K/mcL (140-400); Red Cell Distribution Width 13.8 % (11.5-14.5); Segmented Neutrophils % 78.4 %
[2019-05-08 12:34] LABS: White Blood Count 9.7 K/mcL (4.3-11.1)
[2019-05-08 12:37] LABS: INR 1.2
[2019-05-08 12:39] LABS: Activated Partial Thrombo Time 33.5 Seconds (26.0-36.0)
[2019-05-08 12:45] LABS: Calcium 9.3 mg/dL (8.6-10.3); Magnesium 2.7 mg/dL (1.6-2.6); Potassium 4.2 mEq/L (3.5-5.1)
[2019-05-08 12:49] LABS: Prothrombin Time 13.7 Seconds (9.4-12.1)
[2019-05-08] MEDS: Pantoprazole 40 MG VIAL IVP SCH (14:16)
[2019-05-08] MEDS: ceFAZolin 3,000 MG in 0.9 % Sodium Chloride 100 ML IVPB SCH ×2 (15:38→23:54)
[2019-05-08 16:38] LABS: ABG Base Excess -1 mEq/L (-2 to 3); ABG HCO3 24 mEq/L (21-27); ABG Oxygen Saturation 97 % (95-98); ABG PCO2 41 mmHg (35-45); ABG PH 7.38 pH Units (7.32-7.45); ABG PO2 94 mmHg (85-104); ABG TCO2 26 mEq/L (20-26); Blood Gas Modality ASSIST CONTROL; Blood Gas VT 550 cc
[2019-05-08] MEDS: *HR* OxyCODONE/APAP 5/325 TABLET PO PRN (17:13)
[2019-05-08] MEDS: Metoclopramide 10 MG/2 ML VIAL IVP SCH ×2 (17:13→23:54)
[2019-05-08 17:26] LABS: Basophils % 0.2 %; Eosinophils # 0.1 K/mcL (0.0-0.6); Eosinophils % 0.6 %; Hematocrit 30.1 % (37.5-50.1); Hemoglobin 10.7 g/dL (12.9-16.9); Immature Granulocytes % 0.9 % (0-4); Lymphocytes # 0.8 K/mcL (0.6-4.6); Lymphocytes % 8.6 %; Mean Corpuscular HGB Conc 35.5 g/dL (31.6-35.5); Mean Corpuscular Hemoglobin 30.3 pg (28.0-33.3); Mean Corpuscular Volume 85.3 fL (83.0-100.0); Mean Platelet Volume 10.9 fL (9.4-12.4); Monocytes # 0.5 K/mcL (0.0-1.3); Monocytes % 5.5 %; Platelet Count 148 K/mcL (140-400); Red Blood Count 3.53 M/mcL (4.19-5.50); Red Cell Distribution Width 13.9 % (11.5-14.5); Segmented Neutrophils % 84.2 %; White Blood Count 9.5 K/mcL (4.3-11.1)
[2019-05-08 17:42] LABS: Calcium 9.2 mg/dL (8.6-10.3); Potassium 4.3 mEq/L (3.5-5.1)
[2019-05-08 18:06] LABS: ABG Base Excess -2 mEq/L (-2 to 3); ABG HCO3 24 mEq/L (21-27); ABG Oxygen Saturation 95 % (95-98); ABG PCO2 42 mmHg (35-45); ABG PH 7.36 pH Units (7.32-7.45); ABG PO2 79 mmHg (85-104); ABG TCO2 25 mEq/L (20-26); Blood Gas Modality CPAP/PS; Blood Gas Pressure Support 8 cm H2O
[2019-05-08] MEDS: BuPROPion XL (24 HR) 150 MG TABLET PO SCH (19:48)
[2019-05-08] MEDS: Gabapentin 100 MG CAPSULE PO SCH (19:48)
[2019-05-08] MEDS: Cholecalciferol (D-3) 1,000 UNIT (25MCG) TABLET PO SCH (19:48)
[2019-05-08 22:31] LABS: Alpha 2 Globulin (PEP) 0.92 g/dL (0.48-1.05); Beta Globulin (PEP) 0.71 g/dL (0.48-1.10)
[2019-05-09] MEDS: Nitroglycerin 25 MG/250 ML INFUS..BTL IVC SCH ×2 (00:55→06:49)
[2019-05-09] MEDS: niCARdipine 20 MG/200 ML MLS IVC SCH (02:10)
[2019-05-09] MEDS: *HR* OxyCODONE/APAP 5/325 TABLET PO PRN ×4 (03:02→23:04)
[2019-05-09 04:15] LABS: Basophils % 0.2 %; Hematocrit 27.6 % (37.5-50.1); Hemoglobin 9.6 g/dL (12.9-16.9); Immature Granulocytes % 0.5 % (0-4); Lymphocytes # 0.9 K/mcL (0.6-4.6); Lymphocytes % 6.7 %; Mean Corpuscular HGB Conc 34.8 g/dL (31.6-35.5); Mean Corpuscular Hemoglobin 29.7 pg (28.0-33.3); Mean Corpuscular Volume 85.4 fL (83.0-100.0); Mean Platelet Volume 10.5 fL (9.4-12.4); Monocytes % 7.5 %; Neutrophils # 11.2 K/mcL (1.6-8.9); Platelet Count 132 K/mcL (140-400); Red Blood Count 3.23 M/mcL (4.19-5.50); Segmented Neutrophils % 85.1 %; White Blood Count 13.2 K/mcL (4.3-11.1)
[2019-05-09 04:18] LABS: Prothrombin Time 11.9 Seconds (9.4-12.1)
[2019-05-09 04:31] LABS: Calcium 8.8 mg/dL (8.6-10.3); Magnesium 2.6 mg/dL (1.6-2.6); Potassium 4.1 mEq/L (3.5-5.1)
[2019-05-09] MEDS: Insulin Human Regular 100 UNIT in 0.9 % Sodium Chloride 100 ML IVC SCH (05:04)
[2019-05-09] MEDS: Metoclopramide 10 MG/2 ML VIAL IVP SCH ×5 (05:46→23:04)
[2019-05-09] MEDS: Pantoprazole 40 MG VIAL IVP SCH (07:55)
[2019-05-09] MEDS: Chlorhexidine Rinse 15 ML MOUTHWASH MM SCH ×2 (07:55→20:01)
[2019-05-09] MEDS ORDERED: Aspirin Enteric Coated 81 MG Tablet PO SCH (09:00)
[2019-05-09] MEDS ORDERED: Furosemide 20 MG/2 ML VIAL IVP SCH (09:00)
[2019-05-09 10:30] LABS: IFE Reflexed IFE Done; Immunoglobulin A 244 mg/dL (68-408); Immunoglobulin G 921 mg/dL (768-1632); Immunoglobulin M 83 mg/dL (35-263)
[2019-05-09] MEDS: Cholecalciferol (D-3) 1,000 UNIT (25MCG) TABLET PO SCH (11:25)
[2019-05-09] MEDS ORDERED: Insulin Human Regular 100 UNIT in 0.9 % Sodium Chloride 100 ML IVC SCH (11:29)
[2019-05-09] MEDS ORDERED: Insulin Regular, Human 100 UNIT/ML IV PRN (11:29)
[2019-05-09] MEDS ORDERED: *HR* FentaNYL (PF) 100 MCG/2 ML VIAL IVP PRN (11:29)
[2019-05-09] MEDS ORDERED: D5% in Water 1,000 ML IVC PRN (11:29)
[2019-05-09] MEDS ORDERED: Nitroglycerin 25 MG/250 ML INFUS..BTL IVC SCH (11:29)
[2019-05-09] MEDS ORDERED: Acetaminophen 325 MG TABLET PO PRN (11:29)
[2019-05-09] MEDS ORDERED: *HR* Dextrose 50 % in Water (Syg) 50 ML SYRINGE IVP PRN ×3 (11:29)
[2019-05-09] MEDS ORDERED: Dextrose Gel 15 GM/37.5 ML TUBE PO PRN ×4 (11:29)
[2019-05-09] MEDS ORDERED: Melatonin 3 MG TABLET PO PRN (11:29)
[2019-05-09] MEDS ORDERED: Naloxone 0.4 MG/ML INJ IVP PRN (11:29)
[2019-05-09] MEDS: Insulin LISPRO 300 UNITS/3 ML VIAL SQ SCH ×4 (12:15→20:01)
[2019-05-09] MEDS: *HR* Heparin 5,000 UNIT/ML VIAL SQ SCH ×2 (12:15→17:51)
[2019-05-09] MEDS: Gabapentin 100 MG CAPSULE PO SCH ×2 (17:50→20:02)
[2019-05-09] MEDS: Furosemide 20 MG/2 ML VIAL IVP SCH (17:51)
[2019-05-10 04:45] LABS: Basophils % 0.5 %; Eosinophils # 0.1 K/mcL (0.0-0.6); Hematocrit 28.8 % (37.5-50.1); Hemoglobin 9.9 g/dL (12.9-16.9); Immature Granulocytes % 0.6 % (0-4); Lymphocytes # 1.2 K/mcL (0.6-4.6); Lymphocytes % 13.4 %; Mean Corpuscular HGB Conc 34.4 g/dL (31.6-35.5); Mean Corpuscular Hemoglobin 29.9 pg (28.0-33.3); Mean Platelet Volume 11.5 fL (9.4-12.4); Monocytes # 0.9 K/mcL (0.0-1.3); Monocytes % 9.7 %; Neutrophils # 6.5 K/mcL (1.6-8.9); Platelet Count 123 K/mcL (140-400); Red Blood Count 3.31 M/mcL (4.19-5.50); Red Cell Distribution Width 14.3 % (11.5-14.5); Segmented Neutrophils % 74.8 %; White Blood Count 8.7 K/mcL (4.3-11.1)
[2019-05-10 05:07] LABS: Calcium 8.3 mg/dL (8.6-10.3); Potassium 4.3 mEq/L (3.5-5.1)
[2019-05-10] MEDS: Metoclopramide 10 MG/2 ML VIAL IVP SCH ×4 (05:57→23:28)
[2019-05-10] MEDS: *HR* Heparin 5,000 UNIT/ML VIAL SQ SCH ×2 (05:57→17:37)
[2019-05-10] MEDS: *HR* OxyCODONE/APAP 5/325 TABLET PO PRN ×2 (05:57→09:58)
[2019-05-10] MEDS: Chlorhexidine Rinse 15 ML MOUTHWASH MM SCH ×2 (08:36→20:15)
[2019-05-10] MEDS: Furosemide 20 MG/2 ML VIAL IVP SCH ×2 (08:38→17:37)
[2019-05-10] MEDS: Cholecalciferol (D-3) 1,000 UNIT (25MCG) TABLET PO SCH (08:38)
[2019-05-10] MEDS: BuPROPion XL (24 HR) 150 MG TABLET PO SCH (08:38)
[2019-05-10] MEDS: Gabapentin 100 MG CAPSULE PO SCH ×3 (08:38→20:15)
[2019-05-10] MEDS: Aspirin Enteric Coated 81 MG Tablet PO SCH (08:38)
[2019-05-10] MEDS: Pantoprazole 40 MG VIAL IVP SCH (08:39)
[2019-05-10] MEDS: Insulin LISPRO 300 UNITS/3 ML VIAL SQ SCH ×4 (08:39→20:16)
[2019-05-10] MEDS ORDERED: NIFEdipine XL (24 HR) 30 MG TAB.ER.24 PO SCH (09:00)
[2019-05-11 05:02] LABS: Basophils % 0.5 %; Eosinophils # 0.4 K/mcL (0.0-0.6); Eosinophils % 4.8 %; Hematocrit 28.3 % (37.5-50.1); Hemoglobin 9.4 g/dL (12.9-16.9); Immature Granulocytes % 0.4 % (0-4); Lymphocytes # 1.5 K/mcL (0.6-4.6); Lymphocytes % 19.4 %; Mean Corpuscular HGB Conc 33.2 g/dL (31.6-35.5); Mean Corpuscular Hemoglobin 29.7 pg (28.0-33.3); Mean Corpuscular Volume 89.6 fL (83.0-100.0); Mean Platelet Volume 11.9 fL (9.4-12.4); Monocytes # 0.7 K/mcL (0.0-1.3); Monocytes % 9.5 %; Platelet Count 118 K/mcL (140-400); Red Blood Count 3.16 M/mcL (4.19-5.50); Red Cell Distribution Width 13.6 % (11.5-14.5); Segmented Neutrophils % 65.4 %; White Blood Count 7.7 K/mcL (4.3-11.1)
[2019-05-11] MEDS: Metoclopramide 10 MG/2 ML VIAL IVP SCH ×3 (05:31→17:15)
[2019-05-11] MEDS: *HR* Heparin 5,000 UNIT/ML VIAL SQ SCH ×2 (05:31→17:15)
[2019-05-11] MEDS: Aspirin Enteric Coated 81 MG Tablet PO SCH (08:03)
[2019-05-11] MEDS: *HR* OxyCODONE/APAP 5/325 TABLET PO PRN (08:03)
[2019-05-11] MEDS: Cholecalciferol (D-3) 1,000 UNIT (25MCG) TABLET PO SCH (08:03)
[2019-05-11] MEDS: Gabapentin 100 MG CAPSULE PO SCH ×3 (08:03→20:45)
[2019-05-11] MEDS: BuPROPion XL (24 HR) 150 MG TABLET PO SCH (08:03)
[2019-05-11] MEDS: NIFEdipine XL (24 HR) 30 MG TAB.ER.24 PO SCH (08:03)
[2019-05-11] MEDS: Pantoprazole 40 MG VIAL IVP SCH (08:04)
[2019-05-11] MEDS: Furosemide 20 MG/2 ML VIAL IVP SCH ×2 (08:04→17:15)
[2019-05-11] MEDS: Chlorhexidine Rinse 15 ML MOUTHWASH MM SCH ×2 (08:04→20:46)
[2019-05-11] MEDS: Insulin LISPRO 300 UNITS/3 ML VIAL SQ SCH ×4 (08:06→20:46)
[2019-05-11] MEDS: Insulin DETEMIR 100 UNIT/ML X5UNITS SQ SCH (13:05)
[2019-05-12] MEDS: *HR* Heparin 5,000 UNIT/ML VIAL SQ SCH ×2 (05:24→17:22)
[2019-05-12 06:23] LABS: Albumin 3.2 g/dL (3.5-5.7); Calcium 8.5 mg/dL (8.6-10.3); Phosphorous 4.7 mg/dL (2.7-4.5); Potassium 4.1 mEq/L (3.5-5.1)
[2019-05-12] MEDS: Pantoprazole 40 MG VIAL IVP SCH (08:53)
[2019-05-12] MEDS: Gabapentin 100 MG CAPSULE PO SCH ×3 (08:54→20:59)
[2019-05-12] MEDS: Cholecalciferol (D-3) 1,000 UNIT (25MCG) TABLET PO SCH (08:54)
[2019-05-12] MEDS: Aspirin Enteric Coated 81 MG Tablet PO SCH (08:54)
[2019-05-12] MEDS: Chlorhexidine Rinse 15 ML MOUTHWASH MM SCH ×2 (08:54→20:59)
[2019-05-12] MEDS: BuPROPion XL (24 HR) 150 MG TABLET PO SCH (08:54)
[2019-05-12] MEDS: NIFEdipine XL (24 HR) 30 MG TAB.ER.24 PO SCH (08:54)
[2019-05-12] MEDS: *HR* OxyCODONE/APAP 5/325 TABLET PO PRN ×2 (08:55→21:04)
[2019-05-12] MEDS: Insulin LISPRO 300 UNITS/3 ML VIAL SQ SCH ×4 (08:55→21:00)
[2019-05-12] MEDS: Insulin DETEMIR 100 UNIT/ML X5UNITS SQ SCH (08:59)
[2019-05-13] MEDS: *HR* Heparin 5,000 UNIT/ML VIAL SQ SCH ×2 (05:10→17:17)
[2019-05-13] MEDS: *HR* OxyCODONE/APAP 5/325 TABLET PO PRN ×2 (05:15→21:16)
[2019-05-13] MEDS: Chlorhexidine Rinse 15 ML MOUTHWASH MM SCH ×2 (08:39→21:17)
[2019-05-13] MEDS: Pantoprazole 40 MG VIAL IVP SCH (08:39)
[2019-05-13] MEDS: Gabapentin 100 MG CAPSULE PO SCH ×3 (08:40→21:17)
[2019-05-13] MEDS: Aspirin Enteric Coated 81 MG Tablet PO SCH (08:40)
[2019-05-13] MEDS: BuPROPion XL (24 HR) 150 MG TABLET PO SCH (08:40)
[2019-05-13] MEDS: NIFEdipine XL (24 HR) 30 MG TAB.ER.24 PO SCH (08:40)
[2019-05-13] MEDS: Cholecalciferol (D-3) 1,000 UNIT (25MCG) TABLET PO SCH (08:40)
[2019-05-13] MEDS: Insulin LISPRO 300 UNITS/3 ML VIAL SQ SCH ×4 (08:46→21:17)
[2019-05-13] MEDS: Insulin DETEMIR 100 UNIT/ML X5UNITS SQ SCH (08:47)
[2019-05-13 09:09] LABS: Hematocrit 27.8 % (37.5-50.1); Hemoglobin 9.7 g/dL (12.9-16.9); Mean Corpuscular HGB Conc 34.9 g/dL (31.6-35.5); Mean Corpuscular Hemoglobin 29.8 pg (28.0-33.3); Mean Corpuscular Volume 85.5 fL (83.0-100.0); Mean Platelet Volume 11.8 fL (9.4-12.4); Platelet Count 170 K/mcL (140-400); Red Blood Count 3.25 M/mcL (4.19-5.50); Red Cell Distribution Width 13.3 % (11.5-14.5); White Blood Count 5.2 K/mcL (4.3-11.1)
[2019-05-13 09:26] LABS: Calcium 8.5 mg/dL (8.6-10.3); Potassium 4.4 mEq/L (3.5-5.1)
[2019-05-14] MEDS: *HR* Heparin 5,000 UNIT/ML VIAL SQ SCH (07:08)
[2019-05-14] MEDS ORDERED: FLU Vac QV 19-20 (6Month+)/PF 0.5 ML SYRINGE IM ONE (08:04)
[2019-05-14] MEDS: Pantoprazole 40 MG VIAL IVP SCH (08:18)
[2019-05-14] MEDS: Gabapentin 100 MG CAPSULE PO SCH (08:18)
[2019-05-14] MEDS: Chlorhexidine Rinse 15 ML MOUTHWASH MM SCH (08:18)
[2019-05-14] MEDS: Aspirin Enteric Coated 81 MG Tablet PO SCH (08:19)
[2019-05-14] MEDS: Insulin LISPRO 300 UNITS/3 ML VIAL SQ SCH ×2 (08:19→12:20)
[2019-05-14] MEDS: Cholecalciferol (D-3) 1,000 UNIT (25MCG) TABLET PO SCH (08:19)
[2019-05-14] MEDS: NIFEdipine XL (24 HR) 30 MG TAB.ER.24 PO SCH (08:19)
[2019-05-14] MEDS: BuPROPion XL (24 HR) 150 MG TABLET PO SCH (08:19)
[2019-05-14] MEDS: Insulin DETEMIR 100 UNIT/ML X5UNITS SQ SCH (08:20)
[2019-05-14] MEDS: *HR* OxyCODONE/APAP 5/325 TABLET PO PRN (11:36)
[2019-05-14 12:05] VITALS: BP 117/70
== END 2019-05-14 14:00 | disposition home health service (06) | DRG 233 ==
LOC: SUATTDRO → 2ANU 09:10 → EMEROOARM 09:10 → SUATTDRO 11:05 → 2ANU 11:23 → ICNU 05-08 10:21 → 2NNU 05-10 13:57
PROVIDERS: ADMIT Internal Medicine; ATTEND Internal Medicine

== ENCOUNTER 2019-05-18 17:07 | Observation (INO) ==
[2019-05-18] MEDS ORDERED: Naloxone 0.4 MG/ML INJ IVP ONE (17:13)
[2019-05-18 17:38] LABS: Basophils # 0.1 K/mcL (0.0-0.2); Basophils % 0.5 %; Eosinophils # 0.5 K/mcL (0.0-0.6); Eosinophils % 5.1 %; Hematocrit 31.8 % (37.5-50.1); Hemoglobin 10.5 g/dL (12.9-16.9); Immature Granulocytes % 1.4 % (0-4); Lymphocytes % 10.1 %; Mean Corpuscular Hemoglobin 29.2 pg (28.0-33.3); Mean Corpuscular Volume 88.6 fL (83.0-100.0); Mean Platelet Volume 10.2 fL (9.4-12.4); Monocytes # 0.5 K/mcL (0.0-1.3); Neutrophils # 7.7 K/mcL (1.6-8.9); Platelet Count 300 K/mcL (140-400); Red Blood Count 3.59 M/mcL (4.19-5.50); Red Cell Distribution Width 13.3 % (11.5-14.5); Segmented Neutrophils % 77.9 %
[2019-05-18 17:43] LABS: INR 1.2; Prothrombin Time 13.9 Seconds (9.4-12.1)
[2019-05-18 17:45] LABS: VBG HCO3 21 mEq/L (21-27); VBG PCO2 49 mmHg (41-51); VBG PH 7.25 pH Units (7.32-7.42); VBG PO2 53 mmHg (25-50)
[2019-05-18 17:45] LABS: White Blood Count 9.9 K/mcL (4.3-11.1)
[2019-05-18 17:46] LABS: Activated Partial Thrombo Time 39.3 Seconds (26.0-36.0)
[2019-05-18 18:01] LABS: Bilirubin,Urine Negative (Negative); Blood,Urine Trace (Negative); Clarity,Urine Clear (Clear); Color,Urine Yellow (Yellow); Glucose,Urine (UA) Normal (Normal); Ketones,Urine Negative (Negative); Leukocyte Esterase,Urine Negative (Negative); Nitrite,Urine Negative (Negative); PH,Urine 6.5 pH Units (5.0-8.0); Protein,Urine >=300 mg/dL (Neg-Trace); Specific Gravity,Urine 1.012 (1.010-1.025)
[2019-05-18 18:04] LABS: Bacteria,Urine None Seen per hpf (None-Few); Hyaline Casts,Urine None Seen per lpf (None-Few); Squamous Epithelial Cell,Urine Many per lpf (None-Few); WBC,Urine 0-3 per hpf (0-3)
[2019-05-18 18:07] LABS: Alanine Aminotransferase 13 Units/L (7-52); Albumin 2.6 g/dL (3.5-5.7); Alkaline Phosphatase 76 Units/L (34-104); Aspartate Amino Transferase 16 Units/L (13-39); BUN/Creatinine Ratio 21 (6-26); Bilirubin,Direct 0.2 mg/dL (0.0-0.2); Bilirubin,Indirect 0.1 mg/dL (0.0-1.0); Bilirubin,Total 0.3 mg/dL (0.3-1.0); Blood Urea Nitrogen 30 mg/dL (8-23); Carbon Dioxide 20 mEq/L (23-29); Chloride 113 mEq/L (98-107); Ethanol < 10 mg/dL (Less than 10); Globulin 2.5 g/dL (2.4-3.5); Glucose 90 mg/dL (70-105); Osmolality,Calculated 298 (280-300); Potassium 3.9 mEq/L (3.5-5.1); Sodium 141 mEq/L (136-145); Total Protein 5.1 g/dL (6.4-8.9); eGFR For African Americans > 60 (> 60); eGFR For Non-African Americans 50 (> 60)
[2019-05-18 18:10] LABS: Amphetamine Screen,Urine Negative ng/mL (Cutoff=1000); Barbiturate Screen,Urine Negative ng/mL (Cutoff=200); Benzodiazepines Screen,Urine Negative ng/mL (Cutoff=200); Cannabinoid Screen,Urine Negative ng/mL (Cutoff = 50); Cocaine Screen,Urine Negative ng/mL (Cutoff= 300); Opiate Screen,Urine Negative ng/mL (Cutoff=300); Phencyclidine Screen,Urine Negative ng/mL (Cutoff=25)
[2019-05-18 19:24] LABS: Troponin I 0.03 ng/mL (< 0.04)
[2019-05-18 19:37] LABS: Thyroid Stimulating Hormone 1.111 mcIU/mL (0.340-5.600)
[2019-05-18] MEDS ORDERED: Azithromycin 500 MG in D5% in Water 250 ML IVPB ONE (19:44)
[2019-05-18] MEDS ORDERED: cefTRIAXone 1,000 MG in Water for inj. (sterile) 10 ML IVP ONE (19:44)
[2019-05-18] MEDS ORDERED: *HR* Dextrose 50 % in Water (Syg) 50 ML SYRINGE IVP ONE (22:12)
[2019-05-18] MEDS ORDERED: Naloxone 0.4 MG/ML INJ IVP PRN (22:31)
[2019-05-18] MEDS ORDERED: Ondansetron 4 MG/2 ML VIAL IVP PRN (22:31)
[2019-05-18] MEDS ORDERED: D5% in Water 1,000 ML IVC PRN (22:35)
[2019-05-18] MEDS ORDERED: Dextrose Gel 15 GM/37.5 ML TUBE PO PRN ×2 (22:35)
[2019-05-18] MEDS ORDERED: *HR* Dextrose 50 % in Water (Syg) 50 ML SYRINGE IVP PRN (22:35)
[2019-05-19 01:04] LABS: Hematocrit 28.5 % (37.5-50.1); Hemoglobin 9.6 g/dL (12.9-16.9); Mean Corpuscular HGB Conc 33.7 g/dL (31.6-35.5); Mean Corpuscular Volume 86.1 fL (83.0-100.0); Mean Platelet Volume 10.2 fL (9.4-12.4); Platelet Count 288 K/mcL (140-400); Red Blood Count 3.31 M/mcL (4.19-5.50); Red Cell Distribution Width 13.3 % (11.5-14.5); White Blood Count 7.3 K/mcL (4.3-11.1)
[2019-05-19 01:22] LABS: Albumin/Globulin Ratio 1.1 (1.1-2.2); Bilirubin,Total 0.4 mg/dL (0.3-1.0); Calcium 8.8 mg/dL (8.6-10.3); Globulin 2.8 g/dL (2.4-3.5); Magnesium 1.7 mg/dL (1.6-2.6); Phosphorous 5.1 mg/dL (2.7-4.5); Potassium 4.4 mEq/L (3.5-5.1); Total Protein 5.8 g/dL (6.4-8.9)
[2019-05-19] MEDS: *HR* Heparin 5,000 UNIT/ML VIAL SQ SCH ×2 (06:36→16:53)
[2019-05-19] MEDS: Cefepime HCl 2,000 MG in Water for inj. (sterile) 20 ML IVP SCH ×2 (06:36→16:53)
[2019-05-19] MEDS: Insulin LISPRO 300 UNITS/3 ML VIAL SQ SCH ×4 (07:37→20:20)
[2019-05-19] MEDS ORDERED: Sennosides 8.6 MG TABLET PO PRN (15:32)
[2019-05-19] MEDS ORDERED: hydrOXYzine pamoate 25 MG CAPSULE PO PRN (15:32)
[2019-05-19] MEDS: carvediloL 6.25 MG TABLET PO SCH (15:47)
[2019-05-19] MEDS: Gabapentin 100 MG CAPSULE PO SCH ×2 (15:47→20:03)
[2019-05-19] MEDS: Melatonin 3 MG TABLET PO SCH (20:03)
[2019-05-19] MEDS ORDERED: Aminoglycoside Consult 1 EACH MC ONE (20:10)
[2019-05-19] MEDS ORDERED: NIFEdipine 10 MG CAPSULE PO ONE (20:11)
[2019-05-20] MEDS: *HR* OxyCODONE/APAP 5/325 TABLET PO PRN ×2 (00:35→13:43)
[2019-05-20] MEDS: Cefepime HCl 2,000 MG in Water for inj. (sterile) 20 ML IVP SCH ×2 (06:12→17:15)
[2019-05-20] MEDS: *HR* Heparin 5,000 UNIT/ML VIAL SQ SCH ×2 (06:23→17:15)
[2019-05-20] MEDS: NIFEdipine XL (24 HR) 30 MG TAB.ER.24 PO SCH (06:34)
[2019-05-20] MEDS: Cholecalciferol (D-3) 1,000 UNIT (25MCG) TABLET PO SCH (08:08)
[2019-05-20] MEDS: carvediloL 6.25 MG TABLET PO SCH ×2 (08:08→17:15)
[2019-05-20] MEDS: Lisinopril 20 MG TABLET PO SCH (08:08)
[2019-05-20] MEDS: Insulin DETEMIR 100 UNIT/ML X5UNITS SQ SCH (08:08)
[2019-05-20] MEDS: BuPROPion XL (24 HR) 150 MG TABLET PO SCH (08:08)
[2019-05-20] MEDS: Aspirin Enteric Coated 325 MG Tablet PO SCH (08:08)
[2019-05-20] MEDS: Gabapentin 100 MG CAPSULE PO SCH ×3 (08:08→20:36)
[2019-05-20] MEDS: Insulin LISPRO 300 UNITS/3 ML VIAL SQ SCH ×4 (08:10→21:14)
[2019-05-20 08:40] LABS: Basophils # 0.1 K/mcL (0.0-0.2); Basophils % 0.8 %; Eosinophils # 0.6 K/mcL (0.0-0.6); Eosinophils % 9.5 %; Hematocrit 29.3 % (37.5-50.1); Hemoglobin 9.9 g/dL (12.9-16.9); Immature Granulocytes % 0.5 % (0-4); Lymphocytes # 1.5 K/mcL (0.6-4.6); Lymphocytes % 23.1 %; Mean Corpuscular HGB Conc 33.8 g/dL (31.6-35.5); Mean Corpuscular Hemoglobin 29.3 pg (28.0-33.3); Mean Corpuscular Volume 86.7 fL (83.0-100.0); Mean Platelet Volume 9.9 fL (9.4-12.4); Monocytes # 0.4 K/mcL (0.0-1.3); Neutrophils # 3.8 K/mcL (1.6-8.9); Platelet Count 280 K/mcL (140-400); Red Blood Count 3.38 M/mcL (4.19-5.50); Red Cell Distribution Width 13.2 % (11.5-14.5); Segmented Neutrophils % 60.1 %; White Blood Count 6.3 K/mcL (4.3-11.1)
[2019-05-20 08:56] LABS: Calcium 8.9 mg/dL (8.6-10.3); Potassium 4.4 mEq/L (3.5-5.1)
[2019-05-20] MEDS ORDERED: 0.9 % Sodium Chloride 1,000 ML IV SCH (11:45)
[2019-05-20] MEDS: Melatonin 3 MG TABLET PO SCH (20:36)
[2019-05-21 03:16] LABS: Calcium 8.9 mg/dL (8.6-10.3); Potassium 4.4 mEq/L (3.5-5.1)
[2019-05-21] MEDS: Cefepime HCl 2,000 MG in Water for inj. (sterile) 20 ML IVP SCH (06:00)
[2019-05-21] MEDS: *HR* Heparin 5,000 UNIT/ML VIAL SQ SCH (06:00)
[2019-05-21 07:47] VITALS: BP 162/91
[2019-05-21] MEDS: Lisinopril 20 MG TABLET PO SCH (07:56)
[2019-05-21] MEDS: Aspirin Enteric Coated 325 MG Tablet PO SCH (07:57)
[2019-05-21] MEDS: BuPROPion XL (24 HR) 150 MG TABLET PO SCH (07:57)
[2019-05-21] MEDS: NIFEdipine XL (24 HR) 30 MG TAB.ER.24 PO SCH (07:57)
[2019-05-21] MEDS: carvediloL 6.25 MG TABLET PO SCH (07:57)
[2019-05-21] MEDS: Cholecalciferol (D-3) 1,000 UNIT (25MCG) TABLET PO SCH (07:57)
[2019-05-21] MEDS: Gabapentin 100 MG CAPSULE PO SCH (07:57)
[2019-05-21] MEDS: Insulin DETEMIR 100 UNIT/ML X5UNITS SQ SCH (08:02)
[2019-05-21] MEDS: Insulin LISPRO 300 UNITS/3 ML VIAL SQ SCH ×2 (08:04→12:56)
== END 2019-05-21 14:23 | disposition home health service (06) ==
LOC: 2NENU 17:07 → EMEROOARM 17:07 → SUATTDRO 20:09 → 2NENU 21:05
PROVIDERS: ADMIT Family Medicine; ATTEND Internal Medicine

== ENCOUNTER 2019-08-19 18:30 | Inpatient (IN) ==
[~2019-08-19 18:30] MED LIST: *HR* Etomidate 20 MG/10 ML AMPUL IVP ONE; *HR* Rocuronium Bromide 100 MG/10 ML VIAL IVC ONE
[2019-08-19] MEDS ORDERED: *HR* Dextrose 50 % in Water (Syg) 50 ML SYRINGE IVP PRN (18:39)
[2019-08-19] MEDS ORDERED: Insulin Human Regular 100 UNIT in 0.9 % Sodium Chloride 100 ML IVC SCH ×2 (18:45→21:15)
[2019-08-19] MEDS: 0.9 % Sodium Chloride 1,000 ML IVC SCH ×3 (18:48→20:53)
[2019-08-19 18:59] LABS: Basophils % 0.1 %; Hematocrit 43.4 % (37.5-50.1); Hemoglobin 14.7 g/dL (12.9-16.9); Immature Granulocytes % 0.3 % (0-4); Lymphocytes % 13.4 %; Mean Corpuscular HGB Conc 33.9 g/dL (31.6-35.5); Mean Corpuscular Hemoglobin 28.9 pg (28.0-33.3); Mean Corpuscular Volume 85.3 fL (83.0-100.0); Mean Platelet Volume 12.1 fL (9.4-12.4); Monocytes # 0.7 K/mcL (0.0-1.3); Monocytes % 4.4 %; Platelet Count 240 K/mcL (140-400); Red Blood Count 5.09 M/mcL (4.19-5.50); Red Cell Distribution Width 15.1 % (11.5-14.5); Segmented Neutrophils % 81.8 %; White Blood Count 14.7 K/mcL (4.3-11.1)
[2019-08-19] MEDS ORDERED: Ringers Solution, Lactated 1,000 ML IVC ONE (19:09)
[2019-08-19 19:21] LABS: Calcium 8.5 mg/dL (8.6-10.3); Magnesium 2.1 mg/dL (1.6-2.6); Potassium 3.6 mEq/L (3.5-5.1); Troponin I 0.24 ng/mL (< 0.04)
[2019-08-19 20:08] LABS: ABG Base Excess -4 mEq/L (-2 to 3); ABG HCO3 20 mEq/L (21-27); ABG Oxygen Saturation 100 % (95-98); ABG PCO2 31 mmHg (35-45); ABG PH 7.42 pH Units (7.32-7.45); ABG PO2 522 mmHg (85-104); ABG TCO2 21 mEq/L (20-26); Blood Gas Modality ASSIST CONTROL; Blood Gas VT 500 cc
[2019-08-19] MEDS ORDERED: Ondansetron 4 MG/2 ML VIAL IVP PRN (21:06)
[2019-08-19] MEDS ORDERED: D5% in 0.45% NACL 1,000 ML IVC PRN (21:06)
[2019-08-19] MEDS ORDERED: D5% in 0.45% NACL w KCl 20 MEQ/1,000 ML MLS IVC PRN (21:06)
[2019-08-19] MEDS ORDERED: Naloxone 0.4 MG/ML INJ IVP PRN (21:06)
[2019-08-19] MEDS ORDERED: Artificial Tears SOLN 15 ML BOTTLE BOTH EYES PRN (21:11)
[2019-08-19 21:41] LABS: Potassium 3.4 mEq/L (3.5-5.1)
[2019-08-19] MEDS: Insulin Human Regular 100 UNIT in 0.9 % Sodium Chloride 100 ML IVC SCH (22:12)
[2019-08-19] MEDS: 0.45 % Sodium Chloride w/KCl 20 MEQ/1,000 ML MLS IVC SCH (22:15)
[2019-08-19 22:35] LABS: Bilirubin,Urine Moderate (Negative); Blood,Urine Large (Negative); Clarity,Urine Cloudy (Clear); Color,Urine Yellow (Yellow); Glucose,Urine (UA) >=1000 mg/dL (Normal); Ketones,Urine 40 mg/dL (Negative); Leukocyte Esterase,Urine Negative (Negative); Nitrite,Urine Negative (Negative); PH,Urine 5.5 pH Units (5.0-8.0); Protein,Urine >=1000 mg/dL (Neg-Trace); Specific Gravity,Urine > 1.030 (1.010-1.025); Urobilinogen,Urine Normal (Normal)
[2019-08-19 22:38] LABS: Squamous Epithelial Cell,Urine Many per lpf (None-Few); WBC,Urine 30-50 per hpf (0-3)
[2019-08-19 22:42] LABS: ABG Base Excess -4 mEq/L (-2 to 3); ABG HCO3 19 mEq/L (21-27); ABG Oxygen Saturation 99 % (95-98); ABG PCO2 29 mmHg (35-45); ABG PH 7.43 pH Units (7.32-7.45); ABG PO2 128 mmHg (85-104); ABG TCO2 20 mEq/L (20-26); Blood Gas Modality ASSIST CONTROL; Blood Gas VT 500 cc
[2019-08-19 22:44] LABS: Amphetamine Screen,Urine Negative ng/mL (Cutoff=1000); Barbiturate Screen,Urine Negative ng/mL (Cutoff=200); Benzodiazepines Screen,Urine Negative ng/mL (Cutoff=200); Cannabinoid Screen,Urine Negative ng/mL (Cutoff = 50); Cocaine Screen,Urine Negative ng/mL (Cutoff= 300); Opiate Screen,Urine Negative ng/mL (Cutoff=300); Phencyclidine Screen,Urine Negative ng/mL (Cutoff=25)
[2019-08-19 22:48] LABS: Calcium Oxalate Crystals,Urine Present; Granular Casts,Urine Few per lpf (None Seen); Hyaline Casts,Urine Few per lpf (None-Few); Mucus,Urine Few per lpf (Few)
[2019-08-19 22:49] LABS: Amorphous Sediment,Urine Few per hpf (Few); Bacteria,Urine Few per hpf (None-Few); Oval Fat Bodies,Urine Present (None Seen); Yeast,Urine Few per hpf (None Seen)
[2019-08-19] MEDS ORDERED: *HR* Metoprolol 5 MG/5 ML VIAL IVP PRN (22:49)
[2019-08-19] MEDS ORDERED: *HR* Heparin 5,000 UNIT/ML VIAL IVP PRN ×2 (23:04)
[2019-08-19] MEDS ORDERED: *HR* Heparin 5,000 UNIT/ML VIAL IVP ONE (23:04)
[2019-08-19] MEDS ORDERED: Heparin 25,000 UNIT/250 ML D5W 25,000 UNIT/250 ML IV.SOLN IVC SCH (23:15)
[2019-08-19] MEDS: MetroNIDAZOLE 500 MG/100 ML 500 MG/100 ML BAG IVPB SCH (23:57)
[2019-08-19] MEDS: Artificial Tears SOLN 15 ML BOTTLE BOTH EYES SCH (23:59)
[2019-08-20] MEDS: 0.45 % Sodium Chloride w/KCl 20 MEQ/1,000 ML MLS IVC SCH ×3 (00:10→03:33)
[2019-08-20 00:33] LABS: Hematocrit 35.8 % (37.5-50.1); Mean Corpuscular HGB Conc 33.5 g/dL (31.6-35.5); Mean Corpuscular Hemoglobin 29.1 pg (28.0-33.3); Mean Corpuscular Volume 86.7 fL (83.0-100.0); Mean Platelet Volume 12.4 fL (9.4-12.4); Platelet Count 178 K/mcL (140-400); Red Blood Count 4.13 M/mcL (4.19-5.50); Red Cell Distribution Width 15.3 % (11.5-14.5); White Blood Count 13.8 K/mcL (4.3-11.1)
[2019-08-20 00:42] LABS: INR 1.1; Prothrombin Time 12.4 Seconds (9.4-12.1)
[2019-08-20 00:54] LABS: Calcium 7.1 mg/dL (8.6-10.3); Potassium 3.1 mEq/L (3.5-5.1)
[2019-08-20 00:57] LABS: Heparin anti-factor XA UFH 1.53 IU/mL (0.30-0.70)
[2019-08-20] MEDS ORDERED: Calcium Gluconate 1gm/50mL 1 GM/50 ML BAG IVPB PRN (02:15)
[2019-08-20 03:12] LABS: Basophils % 0.2 %; Hematocrit 37.5 % (37.5-50.1); Hemoglobin 12.2 g/dL (12.9-16.9); Immature Granulocytes % 0.4 % (0-4); Lymphocytes # 3.8 K/mcL (0.6-4.6); Lymphocytes % 22.9 %; Mean Corpuscular HGB Conc 32.5 g/dL (31.6-35.5); Mean Corpuscular Hemoglobin 28.5 pg (28.0-33.3); Mean Corpuscular Volume 87.6 fL (83.0-100.0); Mean Platelet Volume 11.9 fL (9.4-12.4); Monocytes # 0.8 K/mcL (0.0-1.3); Neutrophils # 11.9 K/mcL (1.6-8.9); Platelet Count 200 K/mcL (140-400); Red Blood Count 4.28 M/mcL (4.19-5.50); Red Cell Distribution Width 15.5 % (11.5-14.5); Segmented Neutrophils % 71.5 %; White Blood Count 16.6 K/mcL (4.3-11.1)
[2019-08-20 03:31] LABS: Calcium 7.9 mg/dL (8.6-10.3); Magnesium 1.9 mg/dL (1.6-2.6); Phosphorous 2.3 mg/dL (2.7-4.5); Potassium 3.1 mEq/L (3.5-5.1)
[2019-08-20] MEDS: Insulin Human Regular 100 UNIT in 0.9 % Sodium Chloride 100 ML IVC SCH (04:00)
[2019-08-20] MEDS: Artificial Tears SOLN 15 ML BOTTLE BOTH EYES SCH ×6 (04:04→23:31)
[2019-08-20 04:30] LABS: Protein/Creatinine Ratio,Urine 13.79 mg/mg (0.00-0.20)
[2019-08-20 04:33] LABS: ABG Base Excess -1 mEq/L (-2 to 3); ABG HCO3 22 mEq/L (21-27); ABG Oxygen Saturation 100 % (95-98); ABG PCO2 29 mmHg (35-45); ABG PH 7.48 pH Units (7.32-7.45); ABG PO2 162 mmHg (85-104); ABG TCO2 23 mEq/L (20-26); Blood Gas VT 500 cc
[2019-08-20] MEDS ORDERED: Insulin DETEMIR 100 UNIT/ML X5UNITS SQ ONE (04:33)
[2019-08-20] MEDS: Ringers Solution, Lactated 1,000 ML IVC SCH ×4 (05:32→21:32)
[2019-08-20] MEDS: *HR* Dextrose 50 % in Water (Syg) 50 ML SYRINGE IVP PRN ×3 (05:50→23:31)
[2019-08-20 05:59] LABS: Calcium 7.7 mg/dL (8.6-10.3); Potassium 3.3 mEq/L (3.5-5.1)
[2019-08-20 06:06] LABS: Troponin I 0.17 ng/mL (< 0.04)
[2019-08-20] MEDS ORDERED: Perflutren Lipid Microsphere 1.3 ML in 0.9 % Sodium Chloride 8.7 ML IVP ONE (07:16)
[2019-08-20] MEDS: carvediloL 6.25 MG TABLET GTUBE SCH ×2 (08:20→18:32)
[2019-08-20] MEDS: MetroNIDAZOLE 500 MG/100 ML 500 MG/100 ML BAG IVPB SCH (08:20)
[2019-08-20] MEDS: Chlorhexidine Rinse 15 ML MOUTHWASH MM SCH ×2 (08:20→20:34)
[2019-08-20] MEDS: Aspirin Enteric Coated 325 MG Tablet PO SCH (08:20)
[2019-08-20] MEDS ORDERED: Potassium Chloride Elixir 20 MEQ/15 ML UDC GTUBE ONE (08:37)
[2019-08-20] MEDS ORDERED: NIFEdipine XL (24 HR) 30 MG TAB.ER.24 PO SCH (09:00)
[2019-08-20] MEDS ORDERED: BuPROPion XL (24 HR) 150 MG TABLET PO SCH (09:00)
[2019-08-20 09:11] LABS: Adenovirus Not Detected (Not Detect); Bordetella Pertussis Not Detected (Not Detect); Chlamydophila pneumoniae Not Detected (Not Detect); Coronavirus 229E Not Detected (Not Detect); Coronavirus HKU1 Not Detected (Not Detect); Coronavirus NL63 Not Detected (Not Detect); Coronavirus OC43 Not Detected (Not Detect); Human Metapneumovirus Not Detected (Not Detect); Human Rhinovirus/Enterovirus Not Detected (Not Detect); Influenza A Subtype 2009 H1 Not Detected (Not Detect); Influenza B Not Detected (Not Detect); Mycoplasma pneumoniae Not Detected (Not Detect); Parainfluenza Virus 1 Not Detected (Not Detect); Parainfluenza Virus 2 Not Detected (Not Detect); Parainfluenza Virus 3 Not Detected (Not Detect); Parainfluenza Virus 4 Not Detected (Not Detect); Respiratory Syncytial Virus Not Detected (Not Detect)
[2019-08-20 09:24] LABS: Estimated Average Glucose 301 mg/dl
[2019-08-20 10:15] LABS: Albumin 2.3 g/dL (3.5-5.7); Albumin/Globulin Ratio 0.9 (1.1-2.2); Bilirubin,Direct 0.1 mg/dL (0.0-0.2); Bilirubin,Indirect 0.2 mg/dL (0.0-1.0); Bilirubin,Total 0.3 mg/dL (0.3-1.0); Globulin 2.6 g/dL (2.4-3.5); Total Protein 4.9 g/dL (6.4-8.9)
[2019-08-20] MEDS ORDERED: Cefepime HCl 2,000 MG in Water for inj. (sterile) 20 ML IVP SCH ×2 (11:00)
[2019-08-20] MEDS ORDERED: *HR* Dextrose 50 % in Water (Syg) 50 ML SYRINGE IVP PRN (11:23)
[2019-08-20] MEDS ORDERED: D5% in Water 1,000 ML IVC PRN (11:23)
[2019-08-20] MEDS ORDERED: Dextrose Gel 15 GM/37.5 ML TUBE PO PRN ×2 (11:23)
[2019-08-20 11:34] LABS: Acetaminophen < 10 mcg/mL (10-20); Salicylate < 2.5 mg/dL (15.0-30.0)
[2019-08-20] MEDS: FentaNYL (PF) 1,000 MCG in 0.9 % Sodium Chloride 80 ML IVC SCH (11:37)
[2019-08-20] MEDS: Pantoprazole 40 MG VIAL IVP SCH (11:54)
[2019-08-20] MEDS: Insulin LISPRO 300 UNITS/3 ML VIAL SQ SCH ×3 (12:20→23:32)
[2019-08-20] MEDS: Sulfamethoxazole/Trimeth 34 ML in D5% in Water 500 ML IVPB SCH ×2 (12:24→18:35)
[2019-08-20] MEDS ORDERED: *HR* Heparin 10,000 UNIT/10 ML VIAL IV PRN (13:11)
[2019-08-20] MEDS ORDERED: 0.9 % Sodium Chloride 250 ML IVC PRN (13:11)
[2019-08-20] MEDS ORDERED: 0.9 % Sodium Chloride 1,000 ML PRIME SCH (13:15)
[2019-08-20 14:45] LABS: Red Blood Cell,CSF < 0.002 M/mcL
[2019-08-20] MEDS ORDERED: *HR* Heparin 5,000 UNIT/ML VIAL ONE (14:53)
[2019-08-20 15:07] LABS: Glucose,CSF 66 mg/dL (40-70); Total Protein,CSF 50 mg/dL (15-45)
[2019-08-20] MEDS ORDERED: *HR* Heparin 5,000 UNIT/ML VIAL HE ONE (15:26)
[2019-08-20] MEDS ORDERED: Acyclovir 750 MG in D5% in Water 250 ML IVPB SCH (16:00)
[2019-08-20 16:23] LABS: Appearance,CSF Clear (Clear)
[2019-08-20 16:24] LABS: Basophils,CSF 0 %; Eosinophils,CSF 0 %; Lymphocytes,CSF 0 %; Monocytes,CSF 1 %
[2019-08-20 17:09] LABS: Hepatitis B Surface Antibody < 3.10 mIU/mL
[2019-08-20 17:20] LABS: Hepatitis B Surface Antigen Nonreactive (Nonreactive)
[2019-08-20] MEDS: cefTRIAXone 2,000 MG in Water for inj. (sterile) 20 ML IVP SCH (18:34)
[2019-08-20] MEDS ORDERED: Acyclovir 750 MG in D5% in Water 250 ML IVPB ONE (21:00)
[2019-08-20] MEDS: *HR* Heparin 5,000 UNIT/ML VIAL SQ SCH (21:55)
[2019-08-21] MEDS: Ringers Solution, Lactated 1,000 ML IVC SCH (02:10)
[2019-08-21] MEDS: Artificial Tears SOLN 15 ML BOTTLE BOTH EYES SCH ×6 (03:30→23:39)
[2019-08-21 04:08] LABS: Albumin 1.7 g/dL (3.5-5.7); Albumin/Globulin Ratio 0.9 (1.1-2.2); Bilirubin,Direct 0.1 mg/dL (0.0-0.2); Bilirubin,Indirect 0.2 mg/dL (0.0-1.0); Bilirubin,Total 0.3 mg/dL (0.3-1.0); Magnesium 1.7 mg/dL (1.6-2.6); Potassium 2.9 mEq/L (3.5-5.1); Total Protein 3.7 g/dL (6.4-8.9)
[2019-08-21 04:32] LABS: Basophils % 0.3 %; Immature Granulocytes % 0.3 % (0-4); Monocytes % 4.6 %; Red Cell Distribution Width 15.6 % (11.5-14.5)
[2019-08-21 04:33] LABS: Eosinophils # 0.1 K/mcL (0.0-0.6); Eosinophils % 2.1 %; Hematocrit 29.9 % (37.5-50.1); Immature Platelets 6.5 % (1.1-6.1); Lymphocytes # 1.5 K/mcL (0.6-4.6); Lymphocytes % 22.3 %; Mean Corpuscular HGB Conc 33.4 g/dL (31.6-35.5); Mean Corpuscular Hemoglobin 28.3 pg (28.0-33.3); Mean Corpuscular Volume 84.7 fL (83.0-100.0); Mean Platelet Volume 11.5 fL (9.4-12.4); Monocytes # 0.3 K/mcL (0.0-1.3); Platelet Count 108 K/mcL (140-400); Red Blood Count 3.53 M/mcL (4.19-5.50); Segmented Neutrophils % 70.4 %; White Blood Count 6.6 K/mcL (4.3-11.1)
[2019-08-21 04:37] LABS: Neutrophils # 4.7 K/mcL (1.6-8.9)
[2019-08-21 04:44] LABS: ABG Base Excess 2 mEq/L (-2 to 3); ABG HCO3 26 mEq/L (21-27); ABG Oxygen Saturation 100 % (95-98); ABG PCO2 37 mmHg (35-45); ABG PH 7.46 pH Units (7.32-7.45); ABG PO2 161 mmHg (85-104); ABG TCO2 27 mEq/L (20-26); Blood Gas Modality ASSIST CONTROL; Blood Gas VT 500 cc
[2019-08-21] MEDS: FentaNYL (PF) 1,000 MCG in 0.9 % Sodium Chloride 80 ML IVC SCH (04:53)
[2019-08-21] MEDS: Insulin LISPRO 300 UNITS/3 ML VIAL SQ SCH ×4 (05:00→23:38)
[2019-08-21] MEDS: *HR* Heparin 5,000 UNIT/ML VIAL SQ SCH ×3 (05:02→21:04)
[2019-08-21] MEDS: cefTRIAXone 2,000 MG in Water for inj. (sterile) 20 ML IVP SCH ×2 (05:02→18:07)
[2019-08-21] MEDS: *HR* Dextrose 50 % in Water (Syg) 50 ML SYRINGE IVP PRN (05:03)
[2019-08-21] MEDS ORDERED: Potassium Chloride Elixir 20 MEQ/15 ML UDC GTUBE ONE ×2 (05:12→07:30)
[2019-08-21] MEDS: Chlorhexidine Rinse 15 ML MOUTHWASH MM SCH ×2 (08:14→21:04)
[2019-08-21] MEDS: carvediloL 6.25 MG TABLET GTUBE SCH ×2 (08:14→18:07)
[2019-08-21 08:15] LABS: Protein/Creatinine Ratio,Urine 8.45 mg/mg (0.00-0.20)
[2019-08-21] MEDS: Aspirin Enteric Coated 325 MG Tablet PO SCH (08:15)
[2019-08-21 11:09] LABS: Phosphorous 3.8 mg/dL (2.7-4.5)
[2019-08-21] MEDS ORDERED: ACYCLOVIR IVPB SCH (12:00)
[2019-08-21] MEDS ORDERED: D5 IVPB SCH (12:00)
[2019-08-21] MEDS ORDERED: WATER IVPB SCH (12:00)
[2019-08-21] MEDS ORDERED: Sulfamethoxazole/Trimeth 17 ML in D5% in Water 500 ML IVPB SCH (14:00)
[2019-08-21] MEDS: Pantoprazole 40 MG VIAL IVP SCH (14:25)
[2019-08-21] MEDS ORDERED: *HR* FentaNYL (PF) 100 MCG/2 ML VIAL IVP ONE (15:37)
[2019-08-21] MEDS ORDERED: *HR* LORazepam 2 MG/ML VIAL IVP ONE (15:38)
[2019-08-21 22:10] LABS: Bilirubin,Urine Negative (Negative); Blood,Urine Negative (Negative); Clarity,Urine Cloudy (Clear); Color,Urine Yellow (Yellow); Glucose,Urine (UA) 500 mg/dL (Normal); Ketones,Urine Negative (Negative); Leukocyte Esterase,Urine Negative (Negative); Nitrite,Urine Negative (Negative); PH,Urine 5.5 pH Units (5.0-8.0); Protein,Urine >=300 mg/dL (Neg-Trace); Specific Gravity,Urine 1.026 (1.010-1.025); Urobilinogen,Urine Normal (Normal)
[2019-08-21 22:53] LABS: Granular Casts,Urine Few per lpf (None Seen); RBC,Urine 0-3 per hpf (0-3)
[2019-08-21 22:54] LABS: Bacteria,Urine Moderate per hpf (None-Few); Squamous Epithelial Cell,Urine Few per lpf (None-Few); WBC,Urine 0-3 per hpf (0-3)
[2019-08-22] MEDS: FentaNYL (PF) 1,000 MCG in 0.9 % Sodium Chloride 80 ML IVC SCH (00:37)
[2019-08-22 03:29] LABS: Basophils % 0.6 %; Eosinophils # 0.3 K/mcL (0.0-0.6); Eosinophils % 5.5 %; Hematocrit 30.7 % (37.5-50.1); Hemoglobin 10.1 g/dL (12.9-16.9); Immature Granulocytes % 0.2 % (0-4); Lymphocytes # 1.4 K/mcL (0.6-4.6); Mean Corpuscular HGB Conc 32.9 g/dL (31.6-35.5); Mean Corpuscular Volume 88.2 fL (83.0-100.0); Mean Platelet Volume 12.4 fL (9.4-12.4); Monocytes # 0.3 K/mcL (0.0-1.3); Monocytes % 5.9 %; Neutrophils # 3.4 K/mcL (1.6-8.9); Platelet Count 111 K/mcL (140-400); Red Blood Count 3.48 M/mcL (4.19-5.50); Red Cell Distribution Width 15.7 % (11.5-14.5); Segmented Neutrophils % 62.8 %; White Blood Count 5.5 K/mcL (4.3-11.1)
[2019-08-22] MEDS: Artificial Tears SOLN 15 ML BOTTLE BOTH EYES SCH ×5 (03:47→19:33)
[2019-08-22] MEDS: Insulin LISPRO 300 UNITS/3 ML VIAL SQ SCH ×6 (03:47→23:15)
[2019-08-22 03:49] LABS: Alanine Aminotransferase 19 Units/L (7-52); Albumin 1.9 g/dL (3.5-5.7); Albumin/Globulin Ratio 0.9 (1.1-2.2); Alkaline Phosphatase 78 Units/L (34-104); Aspartate Amino Transferase 28 Units/L (13-39); Bilirubin,Direct 0.1 mg/dL (0.0-0.2); Bilirubin,Indirect 0.1 mg/dL (0.0-1.0); Bilirubin,Total 0.2 mg/dL (0.3-1.0); Globulin 2.1 g/dL (2.4-3.5); Magnesium 1.9 mg/dL (1.6-2.6)
[2019-08-22 04:13] LABS: Folate 6.6 ng/mL (3.0-16.0)
[2019-08-22 04:19] LABS: BUN/Creatinine Ratio 9 (6-26); Blood Urea Nitrogen 21 mg/dL (8-23); Calcium 7.3 mg/dL (8.6-10.3); Carbon Dioxide 25 mEq/L (23-29); Chloride 110 mEq/L (98-107); Glucose 124 mg/dL (70-105); Iron 47 mcg/dL (65-175); Osmolality,Calculated 290 (280-300); Phosphorous 4.7 mg/dL (2.7-4.5); Potassium 4.1 mEq/L (3.5-5.1); Sodium 138 mEq/L (136-145); Transferrin < 75 mg/dL (203-362); eGFR For African Americans 33 (> 60); eGFR For Non-African Americans 27 (> 60)
[2019-08-22 04:52] LABS: ABG Base Excess 0 mEq/L (-2 to 3); ABG HCO3 25 mEq/L (21-27); ABG Oxygen Saturation 98 % (95-98); ABG PCO2 40 mmHg (35-45); ABG PO2 104 mmHg (85-104); ABG TCO2 26 mEq/L (20-26); Blood Gas Modality ASSIST CONTROL; Blood Gas VT 500 cc
[2019-08-22] MEDS: cefTRIAXone 2,000 MG in Water for inj. (sterile) 20 ML IVP SCH (05:37)
[2019-08-22] MEDS: *HR* Heparin 5,000 UNIT/ML VIAL SQ SCH ×3 (05:37→19:52)
[2019-08-22] MEDS: Chlorhexidine Rinse 15 ML MOUTHWASH MM SCH ×2 (07:50→19:33)
[2019-08-22] MEDS: carvediloL 6.25 MG TABLET GTUBE SCH (07:50)
[2019-08-22] MEDS: Aspirin Enteric Coated 325 MG Tablet PO SCH (07:53)
[2019-08-22] MEDS ORDERED: Cyanocobalamin (B-12) 1,000 MCG/ML VIAL IM ONE (08:47)
[2019-08-22] MEDS ORDERED: ACYCLOVIR IVPB SCH (13:00)
[2019-08-22] MEDS ORDERED: WATER IVPB SCH (13:00)
[2019-08-22] MEDS ORDERED: D5 IVPB SCH (13:00)
[2019-08-22] MEDS: Pantoprazole 40 MG VIAL IVP SCH (13:04)
[2019-08-22] MEDS: Ferrous Sulfate Oral Soln 300 MG/5 ML UDC PO SCH (13:13)
[2019-08-22 17:29] LABS: Amphetamines NEGATIVE ng/mL (Cutoff 30); Barbiturates NEGATIVE ng/mL (Cutoff 75); Benzodiazepines NEGATIVE ng/mL (Cutoff 75); Buprenorphine NEGATIVE ng/mL (Cutoff 1); Cocaine NEGATIVE ng/mL (Cutoff 30); Methadone NEGATIVE ng/mL (Cutoff 40); Methamphetamines NEGATIVE ng/mL (Cutoff 30); Opiates NEGATIVE ng/mL (Cutoff 30); Phencyclidine NEGATIVE ng/mL (Cutoff 15)
[2019-08-22] MEDS ORDERED: OLANZapine 10 MG VIAL IM PRN (17:52)
[2019-08-22] MEDS ORDERED: cefTRIAXone 1,000 MG in Water for inj. (sterile) 10 ML IVP SCH (18:00)
[2019-08-22] MEDS: carvediloL 6.25 MG TABLET PO SCH (18:02)
[2019-08-23 03:53] LABS: Basophils % 0.4 %; Eosinophils # 0.2 K/mcL (0.0-0.6); Eosinophils % 2.9 %; Hematocrit 31.6 % (37.5-50.1); Hemoglobin 10.4 g/dL (12.9-16.9); Immature Granulocytes % 0.4 % (0-4); Lymphocytes # 1.2 K/mcL (0.6-4.6); Lymphocytes % 22.8 %; Mean Corpuscular HGB Conc 32.9 g/dL (31.6-35.5); Mean Corpuscular Hemoglobin 28.3 pg (28.0-33.3); Mean Corpuscular Volume 85.9 fL (83.0-100.0); Mean Platelet Volume 12.7 fL (9.4-12.4); Monocytes # 0.3 K/mcL (0.0-1.3); Monocytes % 5.5 %; Neutrophils # 3.7 K/mcL (1.6-8.9); Platelet Count 125 K/mcL (140-400); Red Blood Count 3.68 M/mcL (4.19-5.50); Red Cell Distribution Width 15.3 % (11.5-14.5); White Blood Count 5.5 K/mcL (4.3-11.1)
[2019-08-23 03:57] LABS: Albumin/Globulin Ratio 0.9 (1.1-2.2); Bilirubin,Direct 0.1 mg/dL (0.0-0.2); Bilirubin,Indirect 0.2 mg/dL (0.0-1.0); Bilirubin,Total 0.3 mg/dL (0.3-1.0); Calcium 7.6 mg/dL (8.6-10.3); Globulin 2.3 g/dL (2.4-3.5); Magnesium 1.9 mg/dL (1.6-2.6); Potassium 4.1 mEq/L (3.5-5.1); Total Protein 4.3 g/dL (6.4-8.9)
[2019-08-23] MEDS: Insulin LISPRO 300 UNITS/3 ML VIAL SQ SCH ×6 (04:28→21:03)
[2019-08-23] MEDS: *HR* Heparin 5,000 UNIT/ML VIAL SQ SCH (05:51)
[2019-08-23] MEDS ORDERED: Aminoglycoside Consult 1 EACH MC ONE (08:38)
[2019-08-23] MEDS: carvediloL 6.25 MG TABLET PO SCH ×2 (08:41→18:28)
[2019-08-23] MEDS: Ferrous Sulfate Oral Soln 300 MG/5 ML UDC PO SCH (08:41)
[2019-08-23] MEDS: Aspirin Enteric Coated 325 MG Tablet PO SCH (08:41)
[2019-08-23] MEDS ORDERED: Lidocaine Viscous Oral Soln 15 ML SOLUTION MM PRN (09:57)
[2019-08-23] MEDS ORDERED: 0.9 % Sodium Chloride 500 ML IVC ONE (09:58)
[2019-08-23] MEDS ORDERED: *HR* Midazolam HCl 5 MG/5 ML VIAL IVP PRN (09:58)
[2019-08-23] MEDS: *HR* FentaNYL (PF) 100 MCG/2 ML VIAL IVP PRN ×2 (10:30→10:40)
[2019-08-23] MEDS ORDERED: Insulin DETEMIR 100 UNIT/ML X5UNITS SQ SCH (11:00)
[2019-08-23] MEDS ORDERED: Cyanocobalamin (B-12) 1,000 MCG/ML VIAL IM SCH (11:30)
[2019-08-23] MEDS ORDERED: Naloxone 0.4 MG/ML INJ IVP PRN (11:54)
[2019-08-23] MEDS ORDERED: Dextrose Gel 15 GM/37.5 ML TUBE PO PRN ×2 (11:54)
[2019-08-23] MEDS ORDERED: D5% in Water 1,000 ML IVC PRN (11:54)
[2019-08-23] MEDS ORDERED: Ondansetron 4 MG/2 ML VIAL IVP PRN (11:54)
[2019-08-23] MEDS ORDERED: *HR* Dextrose 50 % in Water (Syg) 50 ML SYRINGE IVP PRN ×3 (11:54)
[2019-08-23] MEDS ORDERED: WATER IVPB SCH (12:00)
[2019-08-23] MEDS ORDERED: ACYCLOVIR IVPB SCH (12:00)
[2019-08-23] MEDS ORDERED: D5 IVPB SCH (12:00)
[2019-08-23] MEDS ORDERED: *HR* Heparin 5,000 UNIT/ML VIAL IVP PRN ×2 (12:19)
[2019-08-23] MEDS: Acyclovir 900 MG in D5% in Water 250 ML IVPB SCH (12:40)
[2019-08-23] MEDS ORDERED: NIFEdipine XL (24 HR) 30 MG TAB.ER.24 PO ONE (13:29)
[2019-08-23] MEDS ORDERED: *HR* Heparin 5,000 UNIT/ML VIAL SQ SCH (14:00)
[2019-08-23 14:20] LABS: Heparin anti-factor XA UFH < 0.04 IU/mL (0.30-0.70); Prothrombin Time 11.7 Seconds (9.4-12.1)
[2019-08-23 14:35] LABS: Buprenorphine, Urine <2 ng/mL
[2019-08-23 14:41] LABS: HSV 2 Glycoprotein G IgG CSF 0.03 IV (<=0.89)
[2019-08-23] MEDS: Heparin 25,000 UNIT/250 ML D5W 25,000 UNIT/250 ML IV.SOLN IVC SCH (15:10)
[2019-08-23] MEDS: Silvasorb 44.4 ML TUBE TP SCH (16:38)
[2019-08-23] MEDS ORDERED: cefTRIAXone 1,000 MG in Water for inj. (sterile) 10 ML IVP SCH (18:00)
[2019-08-24] MEDS: Acyclovir 900 MG in D5% in Water 250 ML IVPB SCH ×2 (00:10→12:39)
[2019-08-24] MEDS: Insulin LISPRO 300 UNITS/3 ML VIAL SQ SCH ×6 (00:12→21:08)
[2019-08-24 02:01] LABS: HSV Source CSF
[2019-08-24] MEDS: Heparin 25,000 UNIT/250 ML D5W 25,000 UNIT/250 ML IV.SOLN IVC SCH (05:39)
[2019-08-24] MEDS: Aspirin Enteric Coated 325 MG Tablet PO SCH (07:48)
[2019-08-24] MEDS: Insulin DETEMIR 100 UNIT/ML X5UNITS SQ SCH (07:48)
[2019-08-24] MEDS: carvediloL 6.25 MG TABLET PO SCH ×2 (07:48→16:36)
[2019-08-24] MEDS: Ferrous Sulfate Oral Soln 300 MG/5 ML UDC PO SCH (07:49)
[2019-08-24] MEDS: Silvasorb 44.4 ML TUBE TP SCH (07:50)
[2019-08-24 08:47] LABS: Basophils % 0.4 %; Eosinophils # 0.3 K/mcL (0.0-0.6); Eosinophils % 3.6 %; Hematocrit 34.3 % (37.5-50.1); Hemoglobin 11.6 g/dL (12.9-16.9); Immature Granulocytes % 0.4 % (0-4); Lymphocytes # 1.7 K/mcL (0.6-4.6); Lymphocytes % 22.8 %; Mean Corpuscular HGB Conc 33.8 g/dL (31.6-35.5); Mean Corpuscular Hemoglobin 29.4 pg (28.0-33.3); Mean Corpuscular Volume 86.8 fL (83.0-100.0); Mean Platelet Volume 12.3 fL (9.4-12.4); Monocytes # 0.3 K/mcL (0.0-1.3); Monocytes % 4.5 %; Neutrophils # 5.2 K/mcL (1.6-8.9); Platelet Count 181 K/mcL (140-400); Red Blood Count 3.95 M/mcL (4.19-5.50); Red Cell Distribution Width 14.8 % (11.5-14.5); Segmented Neutrophils % 68.3 %; White Blood Count 7.6 K/mcL (4.3-11.1)
[2019-08-24 08:52] LABS: INR 1.1; Prothrombin Time 12.4 Seconds (9.4-12.1)
[2019-08-24] MEDS ORDERED: NIFEdipine XL (24 HR) 30 MG TAB.ER.24 PO SCH (09:00)
[2019-08-24 11:13] LABS: Urine Collection Volume NOT PROVIDED mL
[2019-08-24 12:02] LABS: Potassium 3.9 mEq/L (3.5-5.1)
[2019-08-24] MEDS: cephALEXin 500 MG CAPSULE PO SCH ×2 (14:27→20:59)
[2019-08-24] MEDS ORDERED: Warfarin perPT PO PRN (18:00)
[2019-08-24] MEDS ORDERED: *HR* Warfarin 5 MG TABLET PO ONE (18:00)
[2019-08-24] MEDS: Melatonin 3 MG TABLET PO SCH (20:58)
[2019-08-24] MEDS: Doxycycline 100 MG CAPSULE PO SCH (20:59)
[2019-08-24] MEDS ORDERED: ARIPiprazole 5 MG TABLET PO SCH (21:00)
[2019-08-25] MEDS: Heparin 25,000 UNIT/250 ML D5W 25,000 UNIT/250 ML IV.SOLN IVC SCH ×2 (00:01→21:23)
[2019-08-25] MEDS: Acyclovir 900 MG in D5% in Water 250 ML IVPB SCH ×2 (00:03→15:08)
[2019-08-25] MEDS: Insulin LISPRO 300 UNITS/3 ML VIAL SQ SCH ×6 (00:13→20:34)
[2019-08-25 04:06] LABS: Heparin anti-factor XA UFH 0.66 IU/mL (0.30-0.70); INR 1.1; Prothrombin Time 12.2 Seconds (9.4-12.1)
[2019-08-25 08:43] LABS: Basophils % 0.5 %; Eosinophils # 0.4 K/mcL (0.0-0.6); Eosinophils % 5.3 %; Hematocrit 32.2 % (37.5-50.1); Hemoglobin 10.6 g/dL (12.9-16.9); Immature Granulocytes % 0.5 % (0-4); Lymphocytes % 27.8 %; Mean Corpuscular HGB Conc 32.9 g/dL (31.6-35.5); Mean Corpuscular Hemoglobin 28.3 pg (28.0-33.3); Mean Corpuscular Volume 85.9 fL (83.0-100.0); Monocytes # 0.5 K/mcL (0.0-1.3); Monocytes % 6.3 %; Neutrophils # 4.3 K/mcL (1.6-8.9); Platelet Count 184 K/mcL (140-400); Red Blood Count 3.75 M/mcL (4.19-5.50); Segmented Neutrophils % 59.6 %; White Blood Count 7.3 K/mcL (4.3-11.1)
[2019-08-25 08:57] LABS: Calcium 8.1 mg/dL (8.6-10.3); Potassium 3.8 mEq/L (3.5-5.1)
[2019-08-25] MEDS ORDERED: amLODIPine 5 MG TABLET PO SCH (09:00)
[2019-08-25] MEDS: Ferrous Sulfate Oral Soln 300 MG/5 ML UDC PO SCH (09:20)
[2019-08-25] MEDS: Cyanocobalamin (B-12) 1,000 MCG TABLET PO SCH (09:21)
[2019-08-25] MEDS: Doxycycline 100 MG CAPSULE PO SCH ×2 (09:22→21:26)
[2019-08-25] MEDS: cephALEXin 500 MG CAPSULE PO SCH ×3 (09:22→21:25)
[2019-08-25] MEDS: carvediloL 6.25 MG TABLET PO SCH ×2 (09:23→16:43)
[2019-08-25] MEDS: Insulin DETEMIR 100 UNIT/ML X5UNITS SQ SCH (09:28)
[2019-08-25] MEDS: Aspirin Enteric Coated 325 MG Tablet PO SCH (10:57)
[2019-08-25] MEDS: Silvasorb 44.4 ML TUBE TP SCH (11:01)
[2019-08-25] MEDS ORDERED: Haloperidol Lactate 5 MG/ML VIAL IVP ONE ×2 (11:50→12:01)
[2019-08-25] MEDS ORDERED: *HR* LORazepam 2 MG/ML VIAL IVP ONE (12:03)
[2019-08-25] MEDS ORDERED: Haloperidol Lactate 5 MG/ML VIAL IVP PRN (12:07)
[2019-08-25 12:13] LABS: Urine Collection Volume RANDOM mL
[2019-08-25] MEDS ORDERED: QUEtiapine Fumarate 25 MG TABLET PO SCH (12:15)
[2019-08-25] MEDS: BuPROPion XL (24 HR) 150 MG TABLET PO SCH (13:15)
[2019-08-25] MEDS ORDERED: *HR* Warfarin 5 MG TABLET PO ONE (18:00)
[2019-08-25] MEDS: Melatonin 3 MG TABLET PO SCH (21:25)
[2019-08-25] MEDS: QUEtiapine Fumarate 25 MG TABLET PO SCH (21:26)
[2019-08-26] MEDS: Insulin LISPRO 300 UNITS/3 ML VIAL SQ SCH ×6 (01:33→21:50)
[2019-08-26] MEDS: Acyclovir 900 MG in D5% in Water 250 ML IVPB SCH ×2 (03:19→11:53)
[2019-08-26 04:49] LABS: Hematocrit 26.3 % (37.5-50.1); Mean Corpuscular HGB Conc 32.3 g/dL (31.6-35.5); Mean Corpuscular Hemoglobin 28.2 pg (28.0-33.3); Mean Corpuscular Volume 87.4 fL (83.0-100.0); Mean Platelet Volume 12.7 fL (9.4-12.4); Platelet Count 156 K/mcL (140-400); Red Blood Count 3.01 M/mcL (4.19-5.50); Red Cell Distribution Width 15.3 % (11.5-14.5); White Blood Count 5.3 K/mcL (4.3-11.1)
[2019-08-26 04:56] LABS: INR 1.1; Prothrombin Time 12.7 Seconds (9.4-12.1)
[2019-08-26 05:06] LABS: Hemoglobin 8.5 g/dL (12.9-16.9)
[2019-08-26 05:10] LABS: Calcium 7.8 mg/dL (8.6-10.3); Potassium 3.9 mEq/L (3.5-5.1)
[2019-08-26 07:37] LABS: HSV 1 Glycoprotein G IgG CSF 1.24 IV (<=0.89)
[2019-08-26] MEDS: BuPROPion XL (24 HR) 150 MG TABLET PO SCH (08:33)
[2019-08-26] MEDS: carvediloL 6.25 MG TABLET PO SCH ×2 (08:33→16:10)
[2019-08-26] MEDS: Doxycycline 100 MG CAPSULE PO SCH ×2 (08:33→21:51)
[2019-08-26] MEDS: Cyanocobalamin (B-12) 1,000 MCG TABLET PO SCH (08:33)
[2019-08-26] MEDS: amLODIPine 5 MG TABLET PO SCH (08:33)
[2019-08-26] MEDS: Aspirin Enteric Coated 325 MG Tablet PO SCH (08:33)
[2019-08-26] MEDS: cephALEXin 500 MG CAPSULE PO SCH ×3 (08:33→21:51)
[2019-08-26] MEDS: Ferrous Sulfate Oral Soln 300 MG/5 ML UDC PO SCH (08:34)
[2019-08-26] MEDS: Cyanocobalamin (B-12) 1,000 MCG/ML VIAL SQ SCH (08:36)
[2019-08-26] MEDS: Silvasorb 44.4 ML TUBE TP SCH (08:36)
[2019-08-26] MEDS: Sodium Ferric Gluconat/Sucrose 125 MG in 0.9 % Sodium Chloride 100 ML IVPB SCH (11:16)
[2019-08-26 14:58] LABS: Hematocrit 28.3 % (37.5-50.1); Hemoglobin 9.2 g/dL (12.9-16.9)
[2019-08-26] MEDS: Heparin 25,000 UNIT/250 ML D5W 25,000 UNIT/250 ML IV.SOLN IVC SCH (16:11)
[2019-08-26] MEDS ORDERED: *HR* Warfarin 5 MG TABLET PO ONE (18:00)
[2019-08-26] MEDS: QUEtiapine Fumarate 25 MG TABLET PO SCH (21:51)
[2019-08-26] MEDS: Melatonin 3 MG TABLET PO SCH (21:51)
[2019-08-27] MEDS: Acyclovir 900 MG in D5% in Water 250 ML IVPB SCH (00:49)
[2019-08-27] MEDS: Insulin LISPRO 300 UNITS/3 ML VIAL SQ SCH ×6 (00:49→21:12)
[2019-08-27 04:36] LABS: Basophils # 0.1 K/mcL (0.0-0.2); Eosinophils # 0.6 K/mcL (0.0-0.6); Eosinophils % 9.7 %; Hemoglobin 9.4 g/dL (12.9-16.9); Immature Granulocytes % 1.8 % (0-4); Lymphocytes # 2.2 K/mcL (0.6-4.6); Lymphocytes % 36.8 %; Mean Corpuscular HGB Conc 32.4 g/dL (31.6-35.5); Mean Corpuscular Hemoglobin 28.6 pg (28.0-33.3); Mean Corpuscular Volume 88.1 fL (83.0-100.0); Mean Platelet Volume 11.5 fL (9.4-12.4); Monocytes # 0.5 K/mcL (0.0-1.3); Monocytes % 8.7 %; Neutrophils # 2.6 K/mcL (1.6-8.9); Nucleated Red Blood Cells 0.3 /100 WBC (0); Platelet Count 184 K/mcL (140-400); Red Blood Count 3.29 M/mcL (4.19-5.50); Red Cell Distribution Width 15.3 % (11.5-14.5); White Blood Count 6.1 K/mcL (4.3-11.1)
[2019-08-27 04:39] LABS: INR 1.6; Prothrombin Time 17.9 Seconds (9.4-12.1)
[2019-08-27 04:52] LABS: Calcium 7.9 mg/dL (8.6-10.3); Potassium 3.8 mEq/L (3.5-5.1)
[2019-08-27] MEDS: carvediloL 6.25 MG TABLET PO SCH ×2 (08:59→18:33)
[2019-08-27] MEDS: Cyanocobalamin (B-12) 1,000 MCG TABLET PO SCH (09:00)
[2019-08-27] MEDS: cephALEXin 500 MG CAPSULE PO SCH ×3 (09:00→21:10)
[2019-08-27] MEDS: amLODIPine 5 MG TABLET PO SCH (09:00)
[2019-08-27] MEDS: BuPROPion XL (24 HR) 150 MG TABLET PO SCH (09:00)
[2019-08-27] MEDS: Aspirin Enteric Coated 325 MG Tablet PO SCH (09:00)
[2019-08-27] MEDS: Doxycycline 100 MG CAPSULE PO SCH ×2 (09:00→21:10)
[2019-08-27] MEDS: Sodium Ferric Gluconat/Sucrose 125 MG in 0.9 % Sodium Chloride 100 ML IVPB SCH (09:01)
[2019-08-27] MEDS: Cyanocobalamin (B-12) 1,000 MCG/ML VIAL SQ SCH (09:01)
[2019-08-27] MEDS: Ferrous Sulfate Oral Soln 300 MG/5 ML UDC PO SCH (09:01)
[2019-08-27] MEDS: Silvasorb 44.4 ML TUBE TP SCH (09:02)
[2019-08-27] MEDS: Heparin 25,000 UNIT/250 ML D5W 25,000 UNIT/250 ML IV.SOLN IVC SCH (10:37)
[2019-08-27] MEDS ORDERED: *HR* Warfarin 5 MG TABLET PO ONE (18:00)
[2019-08-27] MEDS: QUEtiapine Fumarate 25 MG TABLET PO SCH (21:11)
[2019-08-27] MEDS: Melatonin 3 MG TABLET PO SCH (21:11)
[2019-08-28] MEDS: Insulin LISPRO 300 UNITS/3 ML VIAL SQ SCH ×4 (00:35→11:53)
[2019-08-28] MEDS: Heparin 25,000 UNIT/250 ML D5W 25,000 UNIT/250 ML IV.SOLN IVC SCH ×3 (00:35→05:36)
[2019-08-28 04:26] LABS: Hematocrit 27.5 % (37.5-50.1); Hemoglobin 8.8 g/dL (12.9-16.9); Mean Corpuscular Hemoglobin 28.2 pg (28.0-33.3); Mean Corpuscular Volume 88.1 fL (83.0-100.0); Mean Platelet Volume 11.6 fL (9.4-12.4); Platelet Count 193 K/mcL (140-400); Red Blood Count 3.12 M/mcL (4.19-5.50); Red Cell Distribution Width 15.4 % (11.5-14.5); White Blood Count 5.9 K/mcL (4.3-11.1)
[2019-08-28 04:28] LABS: INR 2.1; Prothrombin Time 23.8 Seconds (9.4-12.1)
[2019-08-28 04:45] LABS: Calcium 7.8 mg/dL (8.6-10.3); Potassium 3.8 mEq/L (3.5-5.1)
[2019-08-28] MEDS: Sodium Ferric Gluconat/Sucrose 125 MG in 0.9 % Sodium Chloride 100 ML IVPB SCH (08:27)
[2019-08-28] MEDS: Ferrous Sulfate Oral Soln 300 MG/5 ML UDC PO SCH (08:27)
[2019-08-28] MEDS: Cyanocobalamin (B-12) 1,000 MCG TABLET PO SCH (08:28)
[2019-08-28] MEDS: amLODIPine 5 MG TABLET PO SCH (08:28)
[2019-08-28] MEDS: Aspirin Enteric Coated 325 MG Tablet PO SCH (08:28)
[2019-08-28] MEDS: Doxycycline 100 MG CAPSULE PO SCH (08:28)
[2019-08-28] MEDS: cephALEXin 500 MG CAPSULE PO SCH ×2 (08:28→14:57)
[2019-08-28] MEDS: BuPROPion XL (24 HR) 150 MG TABLET PO SCH (08:28)
[2019-08-28] MEDS: carvediloL 6.25 MG TABLET PO SCH (08:29)
[2019-08-28] MEDS: Silvasorb 44.4 ML TUBE TP SCH (08:29)
[2019-08-28] MEDS: Cyanocobalamin (B-12) 1,000 MCG/ML VIAL SQ SCH (08:29)
[2019-08-28 10:32] VITALS: BP 180/97
[2019-08-28] MEDS ORDERED: *HR* Warfarin 3 MG TABLET PO ONE (15:00)
== END 2019-08-28 15:41 | disposition home health service (06) | DRG 871 ==
LOC: EMEROOARM 18:30 → ICNU 18:30 → SUATTDRO 23:02 → 2ANU 08-23 14:31
PROVIDERS: ADMIT Student in an Organized Health Care Education/Training Program; ATTEND Internal Medicine
PROC: IRPERMA (2019-08-20 14:00)

== ENCOUNTER 2020-04-12 12:31 | Inpatient (IN) ==
[2020-04-12] MEDS ORDERED: Isovue-370 500 ML BOTTLE IVP ONE (12:40)
[2020-04-12 13:11] LABS: Basophils # 0.1 K/mcL (0.0-0.2); Eosinophils # 0.5 K/mcL (0.0-0.6); Eosinophils % 7.8 %; Hematocrit 28.3 % (37.5-50.1); Hemoglobin 9.2 g/dL (12.9-16.9); Immature Granulocytes % 0.3 % (0-4); Lymphocytes # 1.8 K/mcL (0.6-4.6); Lymphocytes % 29.6 %; Mean Corpuscular HGB Conc 32.5 g/dL (31.6-35.5); Mean Corpuscular Hemoglobin 29.1 pg (28.0-33.3); Mean Corpuscular Volume 89.6 fL (83.0-100.0); Mean Platelet Volume 10.9 fL (9.4-12.4); Monocytes # 0.4 K/mcL (0.0-1.3); Monocytes % 6.2 %; Neutrophils # 3.4 K/mcL (1.6-8.9); Platelet Count 153 K/mcL (140-400); Red Blood Count 3.16 M/mcL (4.19-5.50); Red Cell Distribution Width 13.2 % (11.5-14.5); Segmented Neutrophils % 55.1 %; White Blood Count 6.1 K/mcL (4.3-11.1)
[2020-04-12 13:29] LABS: VBG HCO3 21 mEq/L (21-27); VBG PCO2 36 mmHg (41-51); VBG PH 7.38 pH Units (7.32-7.42); VBG PO2 150 mmHg (25-50)
[2020-04-12 13:35] LABS: Alanine Aminotransferase 9 Units/L (7-52); Albumin 2.9 g/dL (3.5-5.7); Albumin/Globulin Ratio 1.1 (1.1-2.2); Alkaline Phosphatase 82 Units/L (34-104); Aspartate Amino Transferase 14 Units/L (13-39); BUN/Creatinine Ratio 10 (6-26); Bilirubin,Total 0.3 mg/dL (0.3-1.0); Blood Urea Nitrogen 29 mg/dL (8-23); Calcium 8.4 mg/dL (8.6-10.3); Carbon Dioxide 20 mEq/L (23-29); Chloride 110 mEq/L (98-107); Globulin 2.7 g/dL (2.4-3.5); Glucose 164 mg/dL (70-105); Osmolality,Calculated 293 (280-300); Potassium 4.5 mEq/L (3.5-5.1); Sodium 137 mEq/L (136-145); Total Protein 5.6 g/dL (6.4-8.9); Troponin I < 0.03 ng/mL (< 0.04); eGFR For African Americans 27 (> 60); eGFR For Non-African Americans 23 (> 60)
[2020-04-12] MEDS: Furosemide 40 MG/4 ML VIAL IVP ONE (14:41)
[2020-04-12] MEDS ORDERED: Naloxone 0.4 MG/ML INJ IVP PRN (17:18)
[2020-04-12] MEDS ORDERED: D5% in Water 1,000 ML IVC PRN (17:59)
[2020-04-12] MEDS ORDERED: *HR* Dextrose 50 % in Water (Vial) 50 ML VIAL IVP PRN (17:59)
[2020-04-12] MEDS ORDERED: Dextrose Gel 15 GM/37.5 ML TUBE PO PRN ×2 (17:59)
[2020-04-12] MEDS: Insulin LISPRO 300 UNITS/3 ML VIAL SQ SCH (19:52)
[2020-04-12] MEDS ORDERED: Acetaminophen 325 MG TABLET PO ONE (20:35)
[2020-04-12 23:08] LABS: Bilirubin,Urine Negative (Negative); Blood,Urine Trace (Negative); Clarity,Urine Clear (Clear); Color,Urine Colorless (Yellow); Glucose,Urine (UA) Normal (Normal); Ketones,Urine Negative (Negative); Leukocyte Esterase,Urine Small (Negative); Nitrite,Urine Negative (Negative); PH,Urine 6.5 pH Units (5.0-8.0); Protein,Urine 100 mg/dL (Neg-Trace); RBC,Urine 0-3 per hpf (0-3); Specific Gravity,Urine 1.006 (1.010-1.025); Squamous Epithelial Cell,Urine Few per hpf (None-Few); Urobilinogen,Urine Normal (Normal)
[2020-04-12 23:17] LABS: Creatinine,Urine 18 mg/dL
[2020-04-13 02:51] LABS: Basophils % 0.8 %; Eosinophils # 0.5 K/mcL (0.0-0.6); Eosinophils % 9.3 %; Hematocrit 28.3 % (37.5-50.1); Hemoglobin 9.1 g/dL (12.9-16.9); Immature Granulocytes % 0.2 % (0-4); Lymphocytes # 1.5 K/mcL (0.6-4.6); Mean Corpuscular HGB Conc 32.2 g/dL (31.6-35.5); Mean Corpuscular Hemoglobin 28.9 pg (28.0-33.3); Mean Corpuscular Volume 89.8 fL (83.0-100.0); Monocytes # 0.3 K/mcL (0.0-1.3); Monocytes % 5.3 %; Neutrophils # 2.8 K/mcL (1.6-8.9); Platelet Count 153 K/mcL (140-400); Red Blood Count 3.15 M/mcL (4.19-5.50); Red Cell Distribution Width 13.2 % (11.5-14.5); Segmented Neutrophils % 54.4 %; White Blood Count 5.1 K/mcL (4.3-11.1)
[2020-04-13 03:08] LABS: Calcium 8.3 mg/dL (8.6-10.3); Potassium 3.6 mEq/L (3.5-5.1)
[2020-04-13] MEDS ORDERED: *HR* Labetalol 20 MG/4 ML SYRINGE IVP ONE (04:07)
[2020-04-13] MEDS ORDERED: Furosemide 40 MG/4 ML VIAL IVP ONE ×2 (07:00→10:43)
[2020-04-13] MEDS ORDERED: carvediloL 6.25 MG TABLET PO SCH (08:00)
[2020-04-13] MEDS: Insulin LISPRO 300 UNITS/3 ML VIAL SQ SCH ×4 (08:36→20:43)
[2020-04-13] MEDS ORDERED: *HR* OxyCODONE/APAP 5/325 TABLET PO ONE (10:21)
[2020-04-13] MEDS ORDERED: Albumin 25% 25gram/100mL 25 GM/100 ML IV.SOLN IVPB ONE (10:42)
[2020-04-13] MEDS ORDERED: carvediloL 6.25 MG TABLET PO ONE (14:07)
[2020-04-13] MEDS ORDERED: *HR* Heparin 5,000 UNIT/ML VIAL IVP PRN ×2 (15:05)
[2020-04-13] MEDS ORDERED: *HR* Heparin 5,000 UNIT/ML VIAL IVP ONE (15:05)
[2020-04-13] MEDS: BuPROPion XL (24 HR) 150 MG TABLET PO SCH (15:57)
[2020-04-13] MEDS: methocarbamoL 500 MG TABLET PO SCH ×2 (15:58→20:42)
[2020-04-13] MEDS: amLODIPine 5 MG TABLET PO SCH (15:58)
[2020-04-13] MEDS: Heparin 25,000UNIT/250ML 1/2NS 25,000 UNIT/250 ML IV.SOLN IVC SCH (15:59)
[2020-04-13] MEDS: carvediloL 6.25 MG TABLET PO SCH (17:32)
[2020-04-13] MEDS: hydrOXYzine pamoate 25 MG CAPSULE PO PRN (20:42)
[2020-04-13] MEDS: Melatonin 3 MG TABLET PO SCH (20:42)
[2020-04-13] MEDS ORDERED: *HR* OxyCODONE Immed Rel 5 MG TABLET PO ONE (21:23)
[2020-04-14 05:55] LABS: Calcium 8.3 mg/dL (8.6-10.3)
[2020-04-14 08:19] LABS: Basophils # 0.1 K/mcL (0.0-0.2); Basophils % 0.9 %; Eosinophils # 0.4 K/mcL (0.0-0.6); Eosinophils % 7.2 %; Hematocrit 29.5 % (37.5-50.1); Hemoglobin 9.6 g/dL (12.9-16.9); Immature Granulocytes % 0.2 % (0-4); Lymphocytes # 2.1 K/mcL (0.6-4.6); Lymphocytes % 35.9 %; Mean Corpuscular HGB Conc 32.5 g/dL (31.6-35.5); Mean Corpuscular Hemoglobin 29.7 pg (28.0-33.3); Mean Corpuscular Volume 91.3 fL (83.0-100.0); Mean Platelet Volume 11.1 fL (9.4-12.4); Monocytes # 0.3 K/mcL (0.0-1.3); Monocytes % 4.8 %; Platelet Count 153 K/mcL (140-400); Red Blood Count 3.23 M/mcL (4.19-5.50); Red Cell Distribution Width 13.4 % (11.5-14.5); White Blood Count 5.8 K/mcL (4.3-11.1)
[2020-04-14] MEDS: Cyanocobalamin (B-12) 1,000 MCG TABLET PO SCH (08:44)
[2020-04-14] MEDS: carvediloL 6.25 MG TABLET PO SCH ×2 (08:44→16:32)
[2020-04-14] MEDS: methocarbamoL 500 MG TABLET PO SCH ×3 (08:44→22:09)
[2020-04-14] MEDS: Cholecalciferol (D-3) 1,000 UNIT (25MCG) TABLET PO SCH (08:44)
[2020-04-14] MEDS: Aspirin Enteric Coated 325 MG Tablet PO SCH (08:44)
[2020-04-14] MEDS: Insulin LISPRO 300 UNITS/3 ML VIAL SQ SCH ×4 (08:45→22:10)
[2020-04-14] MEDS: Loratadine 10 MG TABLET PO SCH (08:45)
[2020-04-14] MEDS: amLODIPine 5 MG TABLET PO SCH (08:45)
[2020-04-14] MEDS: BuPROPion XL (24 HR) 150 MG TABLET PO SCH (08:45)
[2020-04-14] MEDS ORDERED: *HR* OxyCODONE/APAP 5/325 TABLET PO ONE (09:30)
[2020-04-14] MEDS: Heparin 25,000UNIT/250ML 1/2NS 25,000 UNIT/250 ML IV.SOLN IVC SCH (10:17)
[2020-04-14] MEDS ORDERED: Apixaban 5 MG TABLET PO SCH (20:00)
[2020-04-14] MEDS: Melatonin 3 MG TABLET PO SCH (22:09)
[2020-04-14] MEDS: hydrOXYzine pamoate 25 MG CAPSULE PO PRN (22:09)
[2020-04-15 05:03] LABS: Basophils % 0.6 %; Eosinophils # 0.3 K/mcL (0.0-0.6); Eosinophils % 5.7 %; Hematocrit 25.5 % (37.5-50.1); Hemoglobin 8.2 g/dL (12.9-16.9); Immature Granulocytes % 0.4 % (0-4); Lymphocytes # 1.5 K/mcL (0.6-4.6); Lymphocytes % 29.3 %; Mean Corpuscular HGB Conc 32.2 g/dL (31.6-35.5); Mean Corpuscular Volume 90.1 fL (83.0-100.0); Mean Platelet Volume 10.8 fL (9.4-12.4); Monocytes # 0.3 K/mcL (0.0-1.3); Monocytes % 6.1 %; Platelet Count 135 K/mcL (140-400); Red Blood Count 2.83 M/mcL (4.19-5.50); Red Cell Distribution Width 13.2 % (11.5-14.5); Segmented Neutrophils % 57.9 %; White Blood Count 5.1 K/mcL (4.3-11.1)
[2020-04-15 05:18] LABS: Potassium 3.7 mEq/L (3.5-5.1)
[2020-04-15 05:19] LABS: Calcium 7.9 mg/dL (8.6-10.3)
[2020-04-15] MEDS: Apixaban 2.5 MG TABLET PO SCH ×3 (07:18→21:26)
[2020-04-15] MEDS: Insulin LISPRO 300 UNITS/3 ML VIAL SQ SCH ×4 (07:39→21:26)
[2020-04-15] MEDS: amLODIPine 5 MG TABLET PO SCH (07:40)
[2020-04-15] MEDS: BuPROPion XL (24 HR) 150 MG TABLET PO SCH (07:40)
[2020-04-15] MEDS: Aspirin Enteric Coated 325 MG Tablet PO SCH (07:40)
[2020-04-15] MEDS: carvediloL 6.25 MG TABLET PO SCH ×2 (07:40→15:55)
[2020-04-15] MEDS: methocarbamoL 500 MG TABLET PO SCH (07:40)
[2020-04-15] MEDS: Loratadine 10 MG TABLET PO SCH (07:40)
[2020-04-15] MEDS: Cyanocobalamin (B-12) 1,000 MCG TABLET PO SCH (07:41)
[2020-04-15] MEDS: Cholecalciferol (D-3) 1,000 UNIT (25MCG) TABLET PO SCH (07:41)
[2020-04-15] MEDS ORDERED: Albumin 25% 25gram/100mL 25 GM/100 ML IV.SOLN IVPB ONE (12:52)
[2020-04-15] MEDS ORDERED: Furosemide 40 MG/4 ML VIAL IVP ONE (12:54)
[2020-04-15] MEDS ORDERED: Acetaminophen IV 500 MG/50 ML INFUS..BTL IVPB ONE (14:35)
[2020-04-15] MEDS: Furosemide 40 MG/4 ML VIAL IVP ONE (15:55)
[2020-04-15] MEDS: Melatonin 3 MG TABLET PO SCH (21:26)
[2020-04-16 01:21] LABS: Basophils % 0.8 %; Eosinophils # 0.4 K/mcL (0.0-0.6); Eosinophils % 8.1 %; Hematocrit 27.2 % (37.5-50.1); Hemoglobin 8.9 g/dL (12.9-16.9); Immature Granulocytes % 0.6 % (0-4); Lymphocytes # 1.7 K/mcL (0.6-4.6); Mean Corpuscular HGB Conc 32.7 g/dL (31.6-35.5); Mean Corpuscular Volume 88.6 fL (83.0-100.0); Mean Platelet Volume 11.4 fL (9.4-12.4); Monocytes # 0.3 K/mcL (0.0-1.3); Monocytes % 5.3 %; Neutrophils # 2.8 K/mcL (1.6-8.9); Platelet Count 133 K/mcL (140-400); Red Blood Count 3.07 M/mcL (4.19-5.50); Red Cell Distribution Width 13.3 % (11.5-14.5); Segmented Neutrophils % 52.2 %; White Blood Count 5.3 K/mcL (4.3-11.1)
[2020-04-16 01:42] LABS: Calcium 8.2 mg/dL (8.6-10.3); Potassium 3.6 mEq/L (3.5-5.1)
[2020-04-16] MEDS: Apixaban 2.5 MG TABLET PO SCH ×2 (10:00→20:50)
[2020-04-16] MEDS: carvediloL 6.25 MG TABLET PO SCH ×2 (10:00→16:32)
[2020-04-16] MEDS: BuPROPion XL (24 HR) 150 MG TABLET PO SCH (10:00)
[2020-04-16] MEDS: Cyanocobalamin (B-12) 1,000 MCG TABLET PO SCH (10:00)
[2020-04-16] MEDS: amLODIPine 5 MG TABLET PO SCH (10:00)
[2020-04-16] MEDS: Cholecalciferol (D-3) 1,000 UNIT (25MCG) TABLET PO SCH (10:00)
[2020-04-16] MEDS: Loratadine 10 MG TABLET PO SCH (10:00)
[2020-04-16] MEDS: Insulin LISPRO 300 UNITS/3 ML VIAL SQ SCH ×4 (10:01→20:50)
[2020-04-16] MEDS ORDERED: Acetaminophen IV 500 MG/50 ML INFUS..BTL IVPB ONE (13:36)
[2020-04-16] MEDS: Furosemide 40 MG TABLET PO SCH (16:32)
[2020-04-16] MEDS: Melatonin 3 MG TABLET PO SCH (20:50)
[2020-04-17] MEDS: carvediloL 6.25 MG TABLET PO SCH (07:58)
[2020-04-17] MEDS: Furosemide 40 MG TABLET PO SCH (07:59)
[2020-04-17] MEDS: Cyanocobalamin (B-12) 1,000 MCG TABLET PO SCH (07:59)
[2020-04-17] MEDS: Loratadine 10 MG TABLET PO SCH (07:59)
[2020-04-17] MEDS: Apixaban 2.5 MG TABLET PO SCH (07:59)
[2020-04-17] MEDS: amLODIPine 5 MG TABLET PO SCH (07:59)
[2020-04-17] MEDS: Cholecalciferol (D-3) 1,000 UNIT (25MCG) TABLET PO SCH (07:59)
[2020-04-17] MEDS: Insulin LISPRO 300 UNITS/3 ML VIAL SQ SCH ×2 (07:59→11:51)
[2020-04-17] MEDS: BuPROPion XL (24 HR) 150 MG TABLET PO SCH (07:59)
[2020-04-17 08:30] LABS: Basophils % 0.6 %; Eosinophils # 0.5 K/mcL (0.0-0.6); Eosinophils % 8.2 %; Hematocrit 28.5 % (37.5-50.1); Hemoglobin 9.5 g/dL (12.9-16.9); Immature Granulocytes % 0.6 % (0-4); Lymphocytes # 1.5 K/mcL (0.6-4.6); Lymphocytes % 24.4 %; Mean Corpuscular HGB Conc 33.3 g/dL (31.6-35.5); Mean Corpuscular Volume 89.9 fL (83.0-100.0); Mean Platelet Volume 11.4 fL (9.4-12.4); Monocytes # 0.3 K/mcL (0.0-1.3); Monocytes % 5.3 %; Neutrophils # 3.8 K/mcL (1.6-8.9); Platelet Count 149 K/mcL (140-400); Red Blood Count 3.17 M/mcL (4.19-5.50); Red Cell Distribution Width 13.2 % (11.5-14.5); Segmented Neutrophils % 60.9 %; White Blood Count 6.2 K/mcL (4.3-11.1)
[2020-04-17 08:50] LABS: Calcium 8.4 mg/dL (8.6-10.3); Potassium 3.9 mEq/L (3.5-5.1)
[2020-04-17] MEDS ORDERED: *HR* Labetalol 20 MG/4 ML SYRINGE IVP PRN (13:59)
[2020-04-17 14:59] VITALS: BP 169/76
== END 2020-04-17 15:24 | disposition home or self-care (01) | DRG 682 ==
LOC: 2ANU 12:31 → EMEROOARM 12:31 → SUATTDRO 17:03 → 2ANU 17:55
PROVIDERS: ADMIT Internal Medicine; ATTEND Student in an Organized Health Care Education/Training Program

== ENCOUNTER 2020-06-27 20:56 | Inpatient (IN) ==
[2020-06-27] MEDS ORDERED: Isovue-370 500 ML BOTTLE IVP ONE ×2 (21:23→21:56)
[2020-06-27] MEDS ORDERED: Morphine Sulfate 2 MG/ML SYRINGE IVP ONE ×2 (21:31→23:59)
[2020-06-27 21:55] LABS: Bacteria,Urine Few per hpf (None-Few); Bilirubin,Urine Negative (Negative); Blood,Urine Small (Negative); Clarity,Urine Clear (Clear); Color,Urine Light-Yellow (Yellow); Glucose,Urine (UA) 70 mg/dL (Normal); Hyaline Casts,Urine Few per lpf (None Seen); Ketones,Urine Negative (Negative); Leukocyte Esterase,Urine Negative (Negative); Mucus,Urine Few per lpf (None-Few); Nitrite,Urine Negative (Negative); PH,Urine 6.5 pH Units (5.0-8.0); Protein,Urine >=300 mg/dL (Neg-Trace); Specific Gravity,Urine 1.017 (1.010-1.025); Squamous Epithelial Cell,Urine Few per hpf (None-Few); Urobilinogen,Urine Normal (Normal)
[2020-06-27 21:58] LABS: Basophils % 0.3 %; Eosinophils # 0.7 K/mcL (0.0-0.6); Eosinophils % 8.9 %; Hematocrit 33.9 % (37.5-50.1); Hemoglobin 11.2 g/dL (12.9-16.9); Immature Granulocytes % 0.5 % (0-4); Lymphocytes # 1.3 K/mcL (0.6-4.6); Mean Corpuscular Hemoglobin 29.3 pg (28.0-33.3); Mean Corpuscular Volume 88.7 fL (83.0-100.0); Mean Platelet Volume 10.9 fL (9.4-12.4); Monocytes # 0.2 K/mcL (0.0-1.3); Monocytes % 2.7 %; Neutrophils # 5.6 K/mcL (1.6-8.9); Platelet Count 179 K/mcL (140-400); Red Blood Count 3.82 M/mcL (4.19-5.50); Red Cell Distribution Width 13.6 % (11.5-14.5); Segmented Neutrophils % 70.6 %; White Blood Count 7.9 K/mcL (4.3-11.1)
[2020-06-27 22:10] LABS: Alanine Aminotransferase 8 Units/L (7-52); Alkaline Phosphatase 105 Units/L (34-104); Aspartate Amino Transferase 12 Units/L (13-39); BUN/Creatinine Ratio 8 (6-26); Bilirubin,Indirect 0.3 mg/dL (0.0-1.0); Bilirubin,Total 0.3 mg/dL (0.3-1.0); Blood Urea Nitrogen 31 mg/dL (8-23); Calcium 8.3 mg/dL (8.6-10.3); Carbon Dioxide 20 mEq/L (23-29); Chloride 108 mEq/L (98-107); Glucose 100 mg/dL (70-105); Lipase 19 Units/L (11-82); Osmolality,Calculated 291 (280-300); Potassium 4.7 mEq/L (3.5-5.1); Sodium 137 mEq/L (136-145); eGFR For African Americans 20 (> 60); eGFR For Non-African Americans 16 (> 60)
[2020-06-27 23:16] LABS: Troponin I < 0.03 ng/mL (< 0.04)
[2020-06-27] MEDS ORDERED: Piperacillin/Tazobactam 3.375 GM in 0.9 % Sodium Chloride Mini Bag 100 ML IVPB ONE (23:29)
[2020-06-27] MEDS ORDERED: 0.9 % Sodium Chloride 500 ML IVC ONE (23:59)
[2020-06-28] MEDS ORDERED: Ondansetron ODT 4 MG TAB.RAPDIS SL PRN ×2 (00:53→11:46)
[2020-06-28] MEDS ORDERED: Naloxone 0.4 MG/ML INJ IVP PRN ×2 (00:53→11:46)
[2020-06-28] MEDS ORDERED: D5% in Water 1,000 ML IVC PRN ×2 (03:53→11:46)
[2020-06-28] MEDS ORDERED: *HR* Dextrose 50 % in Water (Vial) 50 ML VIAL IVP PRN ×2 (03:53→11:46)
[2020-06-28] MEDS ORDERED: Dextrose Gel 15 GM/37.5 ML TUBE PO PRN ×4 (03:53→11:46)
[2020-06-28] MEDS ORDERED: Insulin LISPRO 300 UNITS/3 ML VIAL SUBQ SCH (06:00)
[2020-06-28 07:27] LABS: Eosinophils % 0.1 %
[2020-06-28 07:28] LABS: Basophils % 0.1 %; Hematocrit 32.1 % (37.5-50.1); Hemoglobin 10.3 g/dL (12.9-16.9); Immature Granulocytes % 0.4 % (0-4); Immature Platelets 4.1 % (1.1-6.1); Lymphocytes # 0.9 K/mcL (0.6-4.6); Lymphocytes % 7.2 %; Mean Corpuscular HGB Conc 32.1 g/dL (31.6-35.5); Mean Corpuscular Hemoglobin 28.8 pg (28.0-33.3); Mean Corpuscular Volume 89.7 fL (83.0-100.0); Mean Platelet Volume 11.4 fL (9.4-12.4); Monocytes # 0.5 K/mcL (0.0-1.3); Monocytes % 3.9 %; Platelet Count 141 K/mcL (140-400); Red Blood Count 3.58 M/mcL (4.19-5.50); Red Cell Distribution Width 13.6 % (11.5-14.5); Segmented Neutrophils % 88.3 %; White Blood Count 11.8 K/mcL (4.3-11.1)
[2020-06-28 07:30] LABS: Neutrophils # 10.4 K/mcL (1.6-8.9)
[2020-06-28 07:31] LABS: INR 1.2; Prothrombin Time 13.5 Seconds (9.4-12.1)
[2020-06-28 07:47] LABS: Calcium 7.9 mg/dL (8.6-10.3); Magnesium 1.6 mg/dL (1.6-2.6); Phosphorous 5.9 mg/dL (2.7-4.5)
[2020-06-28] MEDS ORDERED: 0.9 % Sodium Chloride 1,000 ML ONE (07:49)
[2020-06-28] MEDS ORDERED: Piperacillin/Tazobactam 3.375 GM in 0.9 % Sodium Chloride Mini Bag 100 ML IVPB SCH (08:00)
[2020-06-28] MEDS ORDERED: 0.9 % Sodium Chloride 1,000 ML IVC SCH (08:00)
[2020-06-28] MEDS ORDERED: *HR* OxyCODONE Immed Rel 5 MG TABLET PO PRN (08:12)
[2020-06-28] MEDS ORDERED: Pregabalin 75 MG CAPSULE PO ONE (08:12)
[2020-06-28] MEDS ORDERED: *HR* Labetalol 20 MG/4 ML SYRINGE IVP PRN (08:12)
[2020-06-28] MEDS ORDERED: Acetaminophen IV 1,000 MG/100 ML BAG IVPB ONE ×2 (08:12→09:39)
[2020-06-28] MEDS ORDERED: *HR* HYDROmorphone 2 MG TABLET PO PRN (08:12)
[2020-06-28] MEDS ORDERED: Famotidine 20 MG/2 ML VIAL IVP ONE (08:12)
[2020-06-28] MEDS ORDERED: *HR* HYDROmorphone (PF) 1 MG/ML SYRINGE IVP PRN (08:12)
[2020-06-28] MEDS ORDERED: CefOXitin 1,000 MG VIAL ONE (08:54)
[2020-06-28] MEDS ORDERED: *HR* FentaNYL (PF) 100 MCG/2 ML VIAL ONE (08:56)
[2020-06-28] MEDS ORDERED: *HR* Midazolam HCl 2 MG/2 ML VIAL ONE (08:57)
[2020-06-28] MEDS ORDERED: *HR* Propofol 200 MG/20 ML VIAL IVP ONE (08:57)
[2020-06-28] MEDS ORDERED: Lidocaine -MPF 2% 2 ML VIAL ONE (09:02)
[2020-06-28] MEDS ORDERED: Ondansetron 4 MG/2 ML VIAL ONE (09:02)
[2020-06-28] MEDS ORDERED: Dexamethasone 4 MG/ML VIAL ONE (09:02)
[2020-06-28] MEDS ORDERED: *HR* Succinylcholine 200 MG/10 ML VIAL IVP ONE (09:02)
[2020-06-28] MEDS ORDERED: *HR* Rocuronium Bromide 50 MG/5 ML VIAL ONE (09:02)
[2020-06-28] MEDS ORDERED: Lidocaine -MPF 4% 5 ML AMPUL ONE (09:04)
[2020-06-28] MEDS ORDERED: *HR* PHENYLEPHRINE 1,000 MCG/10 ML SYRINGE IVP ONE (09:11)
[2020-06-28] MEDS ORDERED: Famotidine 20 MG/2 ML VIAL ONE (09:40)
[2020-06-28] MEDS ORDERED: EPHEDrine 50 MG/ML VIAL ONE (10:06)
[2020-06-28] MEDS: 0.9 % Sodium Chloride 1,000 ML IVC SCH ×2 (13:54→19:28)
[2020-06-28] MEDS: Insulin LISPRO 300 UNITS/3 ML VIAL SUBQ SCH ×3 (14:15→23:38)
[2020-06-28] MEDS: Furosemide 40 MG TABLET PO SCH (16:58)
[2020-06-28] MEDS: Piperacillin/Tazobactam 3.375 GM in 0.9 % Sodium Chloride Mini Bag 100 ML IVPB SCH ×2 (16:59→23:36)
[2020-06-28] MEDS: carvediloL 25 MG TABLET PO SCH (19:28)
[2020-06-29 01:53] LABS: Basophils % 0.2 %; Hematocrit 27.8 % (37.5-50.1); Hemoglobin 8.9 g/dL (12.9-16.9); Immature Granulocytes % 0.6 % (0-4); Lymphocytes # 1.1 K/mcL (0.6-4.6); Lymphocytes % 9.9 %; Mean Corpuscular Hemoglobin 29.3 pg (28.0-33.3); Mean Corpuscular Volume 91.4 fL (83.0-100.0); Mean Platelet Volume 11.3 fL (9.4-12.4); Monocytes # 0.4 K/mcL (0.0-1.3); Monocytes % 3.3 %; Neutrophils # 9.6 K/mcL (1.6-8.9); Platelet Count 116 K/mcL (140-400); Red Blood Count 3.04 M/mcL (4.19-5.50); Red Cell Distribution Width 13.8 % (11.5-14.5); White Blood Count 11.2 K/mcL (4.3-11.1)
[2020-06-29 02:10] LABS: Calcium 7.3 mg/dL (8.6-10.3); Potassium 5.2 mEq/L (3.5-5.1)
[2020-06-29] MEDS: 0.9 % Sodium Chloride 1,000 ML IVC SCH ×2 (03:16→10:57)
[2020-06-29] MEDS: Insulin LISPRO 300 UNITS/3 ML VIAL SUBQ SCH ×4 (05:47→20:45)
[2020-06-29] MEDS: BuPROPion XL (24 HR) 150 MG TABLET PO SCH (08:51)
[2020-06-29] MEDS: Piperacillin/Tazobactam 3.375 GM in 0.9 % Sodium Chloride Mini Bag 100 ML IVPB SCH ×3 (08:51→23:34)
[2020-06-29] MEDS: carvediloL 25 MG TABLET PO SCH ×2 (08:51→20:53)
[2020-06-29] MEDS: Furosemide 40 MG TABLET PO SCH ×2 (08:51→17:03)
[2020-06-29] MEDS: hydrOXYzine pamoate 25 MG CAPSULE PO PRN (11:00)
[2020-06-29] MEDS: Gabapentin 100 MG CAPSULE PO SCH ×2 (14:31→20:53)
[2020-06-29] MEDS: NIFEdipine XL (24 HR) 30 MG TAB.ER.24 PO SCH (20:53)
[2020-06-29] MEDS: Apixaban 2.5 MG TABLET PO SCH (20:53)
[2020-06-29] MEDS ORDERED: Insulin LISPRO 300 UNITS/3 ML VIAL SUBQ SCH (21:00)
[2020-06-30] MEDS ORDERED: *HR* Labetalol 20 MG/4 ML SYRINGE IVP ONE (03:24)
[2020-06-30 05:43] LABS: Basophils % 0.2 %; Eosinophils % 0.2 %; Hematocrit 33.5 % (37.5-50.1); Hemoglobin 10.6 g/dL (12.9-16.9); Immature Granulocytes % 0.9 % (0-4); Lymphocytes % 8.2 %; Mean Corpuscular HGB Conc 31.6 g/dL (31.6-35.5); Mean Corpuscular Hemoglobin 28.4 pg (28.0-33.3); Mean Corpuscular Volume 89.8 fL (83.0-100.0); Mean Platelet Volume 11.8 fL (9.4-12.4); Monocytes # 0.4 K/mcL (0.0-1.3); Monocytes % 3.2 %; Neutrophils # 10.9 K/mcL (1.6-8.9); Platelet Count 161 K/mcL (140-400); Red Blood Count 3.73 M/mcL (4.19-5.50); Red Cell Distribution Width 13.8 % (11.5-14.5); Segmented Neutrophils % 87.3 %; White Blood Count 12.5 K/mcL (4.3-11.1)
[2020-06-30] MEDS: Piperacillin/Tazobactam 3.375 GM in 0.9 % Sodium Chloride Mini Bag 100 ML IVPB SCH ×2 (08:41→17:04)
[2020-06-30] MEDS: Apixaban 2.5 MG TABLET PO SCH ×2 (08:42→22:06)
[2020-06-30] MEDS: BuPROPion XL (24 HR) 150 MG TABLET PO SCH (08:42)
[2020-06-30] MEDS: carvediloL 25 MG TABLET PO SCH ×2 (08:42→22:06)
[2020-06-30] MEDS: 0.9 % Sodium Chloride 1,000 ML IVC SCH ×2 (08:42→17:01)
[2020-06-30] MEDS: NIFEdipine XL (24 HR) 30 MG TAB.ER.24 PO SCH ×2 (08:42→22:06)
[2020-06-30] MEDS: Gabapentin 100 MG CAPSULE PO SCH ×3 (08:42→22:06)
[2020-06-30] MEDS: Furosemide 40 MG TABLET PO SCH ×2 (08:43→17:02)
[2020-06-30] MEDS: Insulin LISPRO 300 UNITS/3 ML VIAL SUBQ SCH ×4 (08:43→22:03)
[2020-06-30] MEDS ORDERED: Insulin LISPRO 300 UNITS/3 ML VIAL SUBQ SCH (09:00)
[2020-06-30] MEDS: Scopolamine Patch 1.5 MG PATCH.TD72 TD SCH (10:43)
[2020-06-30] MEDS: Metoclopramide 20 MG in 0.9 % Sodium Chloride 50 ML IVPB SCH ×2 (10:44→17:02)
[2020-06-30] MEDS: Pantoprazole 40 MG VIAL IVP SCH (12:38)
[2020-06-30] MEDS: Insulin DETEMIR 100 UNIT/ML X5UNITS SUBQ SCH (22:01)
[2020-06-30] MEDS: Ondansetron 4 MG/2 ML VIAL IVP PRN (22:06)
[2020-07-01] MEDS: Piperacillin/Tazobactam 3.375 GM in 0.9 % Sodium Chloride Mini Bag 100 ML IVPB SCH ×4 (00:06→23:25)
[2020-07-01] MEDS: Insulin LISPRO 300 UNITS/3 ML VIAL SUBQ SCH ×4 (00:07→17:56)
[2020-07-01] MEDS: 0.9 % Sodium Chloride 1,000 ML IVC SCH ×3 (02:57→19:28)
[2020-07-01 05:27] LABS: Basophils % 0.3 %; Eosinophils # 0.2 K/mcL (0.0-0.6); Eosinophils % 2.6 %; Hematocrit 29.5 % (37.5-50.1); Hemoglobin 9.7 g/dL (12.9-16.9); Immature Granulocytes % 0.6 % (0-4); Lymphocytes # 0.8 K/mcL (0.6-4.6); Lymphocytes % 12.1 %; Mean Corpuscular HGB Conc 32.9 g/dL (31.6-35.5); Mean Corpuscular Hemoglobin 29.4 pg (28.0-33.3); Mean Corpuscular Volume 89.4 fL (83.0-100.0); Mean Platelet Volume 11.5 fL (9.4-12.4); Monocytes # 0.3 K/mcL (0.0-1.3); Monocytes % 4.6 %; Neutrophils # 5.5 K/mcL (1.6-8.9); Platelet Count 150 K/mcL (140-400); Red Cell Distribution Width 13.4 % (11.5-14.5); Segmented Neutrophils % 79.8 %; White Blood Count 6.9 K/mcL (4.3-11.1)
[2020-07-01 05:35] LABS: Calcium 8.1 mg/dL (8.6-10.3); Potassium 4.5 mEq/L (3.5-5.1)
[2020-07-01] MEDS: NIFEdipine XL (24 HR) 30 MG TAB.ER.24 PO SCH ×2 (07:55→21:16)
[2020-07-01] MEDS: Pantoprazole 40 MG VIAL IVP SCH (07:55)
[2020-07-01] MEDS: Apixaban 2.5 MG TABLET PO SCH ×2 (07:56→21:16)
[2020-07-01] MEDS: BuPROPion XL (24 HR) 150 MG TABLET PO SCH (07:56)
[2020-07-01] MEDS: Furosemide 40 MG TABLET PO SCH (07:57)
[2020-07-01] MEDS: Gabapentin 100 MG CAPSULE PO SCH ×3 (07:57→21:16)
[2020-07-01] MEDS: carvediloL 25 MG TABLET PO SCH ×2 (07:57→21:16)
[2020-07-01] MEDS: Furosemide 20 MG TABLET PO SCH (16:20)
[2020-07-01] MEDS: Insulin DETEMIR 100 UNIT/ML X5UNITS SUBQ SCH (21:18)
[2020-07-01] MEDS: QUEtiapine Fumarate 25 MG TABLET PO SCH (22:43)
[2020-07-01] MEDS ORDERED: Haloperidol Lactate 5 MG/ML VIAL IM ONE (23:58)
[2020-07-02] MEDS: Insulin LISPRO 300 UNITS/3 ML VIAL SUBQ SCH ×5 (00:18→18:36)
[2020-07-02] MEDS: 0.9 % Sodium Chloride 1,000 ML IVC SCH ×2 (04:20→13:39)
[2020-07-02 04:27] LABS: Basophils % 0.3 %; Eosinophils # 0.1 K/mcL (0.0-0.6); Hematocrit 26.2 % (37.5-50.1); Hemoglobin 8.3 g/dL (12.9-16.9); Immature Granulocytes % 0.3 % (0-4); Lymphocytes # 0.9 K/mcL (0.6-4.6); Mean Corpuscular HGB Conc 31.7 g/dL (31.6-35.5); Mean Corpuscular Hemoglobin 28.5 pg (28.0-33.3); Mean Platelet Volume 11.1 fL (9.4-12.4); Monocytes # 0.4 K/mcL (0.0-1.3); Monocytes % 5.1 %; Neutrophils # 5.6 K/mcL (1.6-8.9); Platelet Count 138 K/mcL (140-400); Red Blood Count 2.91 M/mcL (4.19-5.50); Red Cell Distribution Width 13.3 % (11.5-14.5); Segmented Neutrophils % 79.3 %
[2020-07-02 04:46] LABS: Calcium 7.7 mg/dL (8.6-10.3); Potassium 4.4 mEq/L (3.5-5.1)
[2020-07-02] MEDS: Piperacillin/Tazobactam 3.375 GM in 0.9 % Sodium Chloride Mini Bag 100 ML IVPB SCH (08:31)
[2020-07-02] MEDS: Pantoprazole 40 MG VIAL IVP SCH (08:31)
[2020-07-02] MEDS: NIFEdipine XL (24 HR) 30 MG TAB.ER.24 PO SCH (08:32)
[2020-07-02] MEDS: Furosemide 20 MG TABLET PO SCH (08:32)
[2020-07-02] MEDS: Apixaban 2.5 MG TABLET PO SCH (08:32)
[2020-07-02] MEDS: carvediloL 25 MG TABLET PO SCH (08:33)
[2020-07-02] MEDS: BuPROPion XL (24 HR) 150 MG TABLET PO SCH (08:34)
[2020-07-02] MEDS: Gabapentin 100 MG CAPSULE PO SCH ×2 (08:34→14:31)
[2020-07-02 11:19] LABS: Hematocrit 27.8 % (37.5-50.1); Hemoglobin 8.9 g/dL (12.9-16.9)
[2020-07-02] MEDS: hydrOXYzine pamoate 25 MG CAPSULE PO PRN (13:39)
[2020-07-02 15:09] LABS: Bacteria,Urine Few per hpf (None-Few); Bilirubin,Urine Negative (Negative); Blood,Urine Large (Negative); Clarity,Urine Turbid (Clear); Color,Urine Light-Yellow (Yellow); Glucose,Urine (UA) 100 mg/dL (Normal); Granular Casts,Urine Few per lpf (None Seen); Ketones,Urine Negative (Negative); Leukocyte Esterase,Urine Negative (Negative); Mucus,Urine Few per lpf (None-Few); Nitrite,Urine Negative (Negative); Protein,Urine >=300 mg/dL (Neg-Trace); RBC,Urine TNTC per hpf (0-3); Specific Gravity,Urine 1.014 (1.010-1.025); Squamous Epithelial Cell,Urine Few per hpf (None-Few); Urobilinogen,Urine Normal (Normal)
[2020-07-02 16:32] LABS: Hematocrit 27.7 % (37.5-50.1)
[2020-07-02 16:45] LABS: Uric Acid 7.5 mg/dL (2.3-7.6)
[2020-07-02 17:13] LABS: Hepatitis B Surface Antigen Nonreactive (Nonreactive)
[2020-07-02] MEDS: Ondansetron 4 MG/2 ML VIAL IVP PRN (17:14)
[2020-07-02 17:42] LABS: Hepatitis B Core IgM Nonreactive (Nonreactive)
[2020-07-02 17:43] LABS: Hepatitis C Virus Antibody Nonreactive (Nonreactive)
[2020-07-02 18:14] LABS: Hepatitis A Antibody IgM Nonreactive (Nonreactive)
[2020-07-02 23:15] LABS: Hematocrit 28.6 % (37.5-50.1); Hemoglobin 9.2 g/dL (12.9-16.9)
[2020-07-03 06:18] LABS: Calcium 7.9 mg/dL (8.6-10.3); Potassium 4.1 mEq/L (3.5-5.1)
[2020-07-03] MEDS: NIFEdipine XL (24 HR) 30 MG TAB.ER.24 PO SCH ×3 (08:00→22:52)
[2020-07-03] MEDS: BuPROPion XL (24 HR) 150 MG TABLET PO SCH (08:01)
[2020-07-03] MEDS: carvediloL 25 MG TABLET PO SCH ×3 (08:02→22:51)
[2020-07-03] MEDS: Gabapentin 100 MG CAPSULE PO SCH ×4 (08:02→22:52)
[2020-07-03] MEDS: Apixaban 2.5 MG TABLET PO SCH ×3 (08:02→22:51)
[2020-07-03] MEDS: Pantoprazole 40 MG VIAL IVP SCH (08:03)
[2020-07-03] MEDS: Insulin LISPRO 300 UNITS/3 ML VIAL SUBQ SCH ×5 (08:52→22:51)
[2020-07-03] MEDS: Scopolamine Patch 1.5 MG PATCH.TD72 TD SCH (08:53)
[2020-07-03 12:38] LABS: Creatinine,Urine 81 mg/dL; Microalbumin,Urine > 1350 mg/L; Protein/Creatinine Ratio,Urine 7.62 mg/mg (0.00-0.20)
[2020-07-03] MEDS: QUEtiapine Fumarate 25 MG TABLET PO SCH ×2 (20:55→22:52)
[2020-07-03] MEDS: Insulin DETEMIR 100 UNIT/ML X5UNITS SUBQ SCH ×2 (20:56→22:51)
[2020-07-03] MEDS: 0.9 % Sodium Chloride 1,000 ML IVC SCH ×2 (22:50→22:51)
[2020-07-04] MEDS: 0.9 % Sodium Chloride 1,000 ML IVC SCH ×2 (03:44→16:23)
[2020-07-04 05:55] LABS: Basophils % 0.4 %; Eosinophils # 0.5 K/mcL (0.0-0.6); Eosinophils % 5.4 %; Hematocrit 29.2 % (37.5-50.1); Hemoglobin 9.4 g/dL (12.9-16.9); Lymphocytes # 1.4 K/mcL (0.6-4.6); Lymphocytes % 14.1 %; Mean Corpuscular HGB Conc 32.2 g/dL (31.6-35.5); Mean Corpuscular Hemoglobin 28.6 pg (28.0-33.3); Mean Corpuscular Volume 88.8 fL (83.0-100.0); Mean Platelet Volume 10.8 fL (9.4-12.4); Monocytes # 0.6 K/mcL (0.0-1.3); Monocytes % 5.8 %; Neutrophils # 7.4 K/mcL (1.6-8.9); Platelet Count 203 K/mcL (140-400); Red Blood Count 3.29 M/mcL (4.19-5.50); Red Cell Distribution Width 13.3 % (11.5-14.5); Segmented Neutrophils % 73.3 %; White Blood Count 10.1 K/mcL (4.3-11.1)
[2020-07-04 06:19] LABS: Calcium 8.2 mg/dL (8.6-10.3); Potassium 3.6 mEq/L (3.5-5.1)
[2020-07-04] MEDS ORDERED: Cyanocobalamin (B-12) 1,000 MCG/ML VIAL IM ONE (07:39)
[2020-07-04] MEDS: Insulin LISPRO 300 UNITS/3 ML VIAL SUBQ SCH ×4 (09:05→21:15)
[2020-07-04] MEDS: carvediloL 25 MG TABLET PO SCH ×2 (09:33→21:16)
[2020-07-04] MEDS: Gabapentin 100 MG CAPSULE PO SCH ×3 (09:33→21:16)
[2020-07-04] MEDS: Pantoprazole 40 MG VIAL IVP SCH (09:35)
[2020-07-04] MEDS: NIFEdipine XL (24 HR) 30 MG TAB.ER.24 PO SCH ×2 (09:36→21:16)
[2020-07-04] MEDS: Apixaban 2.5 MG TABLET PO SCH ×2 (09:37→21:16)
[2020-07-04] MEDS: BuPROPion XL (24 HR) 150 MG TABLET PO SCH (09:48)
[2020-07-04] MEDS: Insulin DETEMIR 100 UNIT/ML X5UNITS SUBQ SCH (21:16)
[2020-07-04] MEDS: QUEtiapine Fumarate 25 MG TABLET PO SCH (21:16)
[2020-07-05] MEDS: 0.9 % Sodium Chloride 1,000 ML IVC SCH ×4 (00:59→09:21)
[2020-07-05 05:57] LABS: Calcium 7.8 mg/dL (8.6-10.3); Potassium 3.9 mEq/L (3.5-5.1)
[2020-07-05] MEDS: Cyanocobalamin (B-12) 1,000 MCG TABLET PO SCH (09:09)
[2020-07-05] MEDS: NIFEdipine XL (24 HR) 30 MG TAB.ER.24 PO SCH ×2 (09:09→20:52)
[2020-07-05] MEDS: Gabapentin 100 MG CAPSULE PO SCH ×3 (09:09→20:52)
[2020-07-05] MEDS: Apixaban 2.5 MG TABLET PO SCH ×2 (09:09→20:52)
[2020-07-05] MEDS: BuPROPion XL (24 HR) 150 MG TABLET PO SCH (09:09)
[2020-07-05] MEDS: carvediloL 25 MG TABLET PO SCH ×2 (09:09→20:53)
[2020-07-05] MEDS: Pantoprazole 40 MG VIAL IVP SCH (09:09)
[2020-07-05] MEDS: Insulin LISPRO 300 UNITS/3 ML VIAL SUBQ SCH ×4 (09:21→20:53)
[2020-07-05] MEDS ORDERED: Ringers Solution, Lactated 1,000 ML IVC SCH (11:15)
[2020-07-05] MEDS: Ringers Solution, Lactated 1,000 ML IVC SCH (12:16)
[2020-07-05] MEDS ORDERED: Sodium Bicarbonate 150 MEQ in Water for inj. (sterile) 1,000 ML IVC SCH (13:30)
[2020-07-05] MEDS: QUEtiapine Fumarate 25 MG TABLET PO SCH (20:53)
[2020-07-05] MEDS: Insulin DETEMIR 100 UNIT/ML X5UNITS SUBQ SCH (20:53)
[2020-07-06 04:19] LABS: Potassium 3.6 mEq/L (3.5-5.1)
[2020-07-06] MEDS: Gabapentin 100 MG CAPSULE PO SCH (08:04)
[2020-07-06] MEDS: Cyanocobalamin (B-12) 1,000 MCG TABLET PO SCH (08:04)
[2020-07-06] MEDS: NIFEdipine XL (24 HR) 30 MG TAB.ER.24 PO SCH ×2 (08:04→20:20)
[2020-07-06] MEDS: carvediloL 25 MG TABLET PO SCH ×2 (08:05→20:20)
[2020-07-06] MEDS: hydrOXYzine pamoate 25 MG CAPSULE PO PRN ×2 (08:05→20:20)
[2020-07-06] MEDS: Apixaban 2.5 MG TABLET PO SCH ×2 (08:05→20:20)
[2020-07-06] MEDS: BuPROPion XL (24 HR) 150 MG TABLET PO SCH (08:05)
[2020-07-06] MEDS: Ringers Solution, Lactated 1,000 ML IVC SCH ×3 (08:08→15:53)
[2020-07-06] MEDS: Insulin LISPRO 300 UNITS/3 ML VIAL SUBQ SCH ×4 (08:08→20:21)
[2020-07-06] MEDS: Cyanocobalamin (B-12) 1,000 MCG/ML VIAL IM SCH (15:43)
[2020-07-06] MEDS: Scopolamine Patch 1.5 MG PATCH.TD72 TD SCH (15:43)
[2020-07-06] MEDS: Insulin DETEMIR 100 UNIT/ML X5UNITS SUBQ SCH (20:20)
[2020-07-06] MEDS: QUEtiapine Fumarate 25 MG TABLET PO SCH (20:20)
[2020-07-07 03:32] LABS: Calcium 7.7 mg/dL (8.6-10.3); Potassium 3.3 mEq/L (3.5-5.1)
[2020-07-07] MEDS: Insulin LISPRO 300 UNITS/3 ML VIAL SUBQ SCH ×3 (07:52→17:21)
[2020-07-07] MEDS: Cyanocobalamin (B-12) 1,000 MCG TABLET PO SCH (08:02)
[2020-07-07] MEDS: Apixaban 2.5 MG TABLET PO SCH ×2 (08:07→20:58)
[2020-07-07] MEDS: NIFEdipine XL (24 HR) 30 MG TAB.ER.24 PO SCH ×2 (08:07→20:58)
[2020-07-07] MEDS: Cyanocobalamin (B-12) 1,000 MCG/ML VIAL IM SCH (08:07)
[2020-07-07] MEDS: carvediloL 25 MG TABLET PO SCH ×2 (08:08→17:21)
[2020-07-07] MEDS: Ringers Solution, Lactated 1,000 ML IVC SCH ×2 (11:08→20:57)
[2020-07-07] MEDS: Acetaminophen 325 MG TABLET PO PRN (11:12)
[2020-07-07] MEDS ORDERED: Potassium Chloride Elixir 20 MEQ/15 ML UDC PO ONE (11:13)
[2020-07-07] MEDS: Insulin DETEMIR 100 UNIT/ML X5UNITS SUBQ SCH (20:58)
[2020-07-07] MEDS: hydrOXYzine pamoate 25 MG CAPSULE PO PRN (20:58)
[2020-07-07] MEDS: QUEtiapine Fumarate 25 MG TABLET PO SCH (20:58)
[2020-07-08] MEDS: Insulin LISPRO 300 UNITS/3 ML VIAL SUBQ SCH ×3 (00:03→12:24)
[2020-07-08 05:32] LABS: Calcium 7.6 mg/dL (8.6-10.3)
[2020-07-08] MEDS: carvediloL 25 MG TABLET PO SCH (07:55)
[2020-07-08] MEDS: NIFEdipine XL (24 HR) 30 MG TAB.ER.24 PO SCH (07:55)
[2020-07-08] MEDS: Apixaban 2.5 MG TABLET PO SCH (07:56)
[2020-07-08] MEDS: Cyanocobalamin (B-12) 1,000 MCG/ML VIAL IM SCH (08:03)
[2020-07-08] MEDS: Acetaminophen 325 MG TABLET PO PRN (08:12)
[2020-07-08 16:08] VITALS: BP 154/74
[2020-07-09] MEDS ORDERED: Cyanocobalamin (B-12) 1,000 MCG TABLET PO SCH (09:00)
== END 2020-07-08 17:21 | disposition home health service (06) | DRG 338 ==
LOC: EMEROOARM 20:56 → 3ANU 20:56
PROVIDERS: ADMIT Student in an Organized Health Care Education/Training Program; ATTEND Student in an Organized Health Care Education/Training Program
PROC: GENAPPY (ICD-10-PCS; 2020-06-28 09:30)

== ENCOUNTER 2020-10-01 12:13 | Inpatient (IN) ==
[2020-10-01] MEDS ORDERED: Ondansetron 4 MG/2 ML VIAL IVP ONE (12:44)
[2020-10-01 12:57] LABS: Basophils % 0.9 %; Eosinophils # 0.2 K/mcL (0.0-0.6); Eosinophils % 4.4 %; Hematocrit 27.4 % (37.5-50.1); Immature Granulocytes % 0.5 % (0-4); Lymphocytes # 1.8 K/mcL (0.6-4.6); Lymphocytes % 41.2 %; Mean Corpuscular HGB Conc 32.8 g/dL (31.6-35.5); Mean Corpuscular Hemoglobin 28.4 pg (28.0-33.3); Mean Corpuscular Volume 86.4 fL (83.0-100.0); Mean Platelet Volume 10.6 fL (9.4-12.4); Monocytes # 0.3 K/mcL (0.0-1.3); Monocytes % 6.3 %; Platelet Count 185 K/mcL (140-400); Red Blood Count 3.17 M/mcL (4.19-5.50); Red Cell Distribution Width 15.7 % (11.5-14.5); Segmented Neutrophils % 46.7 %; White Blood Count 4.3 K/mcL (4.3-11.1)
[2020-10-01 13:15] LABS: Albumin 2.7 g/dL (3.5-5.7); Albumin/Globulin Ratio 0.9 (1.1-2.2); Bilirubin,Total 0.3 mg/dL (0.3-1.0); Calcium 8.2 mg/dL (8.6-10.3); Globulin 3.1 g/dL (2.4-3.5); Potassium 3.4 mEq/L (3.5-5.1); Total Protein 5.8 g/dL (6.4-8.9)
[2020-10-01 13:24] LABS: Bilirubin,Urine Negative (Negative); Blood,Urine Moderate (Negative); Clarity,Urine Clear (Clear); Color,Urine Colorless (Yellow); Glucose,Urine (UA) 50 mg/dL (Normal); Hyaline Casts,Urine Few per lpf (None Seen); Ketones,Urine Negative (Negative); Leukocyte Esterase,Urine Negative (Negative); Mucus,Urine Few per lpf (None-Few); Nitrite,Urine Negative (Negative); Protein,Urine >=300 mg/dL (Neg-Trace); RBC,Urine 30-50 per hpf (0-3); Renal Epithelial Cells,Urine Few per hpf (None-Few); Specific Gravity,Urine 1.013 (1.010-1.025); Squamous Epithelial Cell,Urine Few per hpf (None-Few); Transitional Epi Cells,Urine Few per hpf (None-Few); Urobilinogen,Urine Normal (Normal)
[2020-10-01] MEDS ORDERED: carvediloL 25 MG TABLET PO ONE (14:28)
[2020-10-01] MEDS: NIFEdipine XL (24 HR) 30 MG TAB.ER.24 PO SCH (14:52)
[2020-10-01] MEDS ORDERED: niCARdipine 20 MG/200 ML MLS IVC ONE (16:10)
[2020-10-01] MEDS: niCARdipine 20 MG/200 ML MLS IVC SCH ×2 (16:40→20:22)
[2020-10-01] MEDS ORDERED: Naloxone 0.4 MG/ML INJ IVP PRN (17:48)
[2020-10-01] MEDS ORDERED: Ondansetron 4 MG/2 ML VIAL IVP PRN (17:48)
[2020-10-01] MEDS ORDERED: Melatonin 3 MG TABLET PO PRN (17:48)
[2020-10-01] MEDS ORDERED: Potassium Chloride 20 MEQ, Lidocaine 1% 2 ML in 0.9 % Sodium Chloride 250 ML IVPB ONE (18:13)
[2020-10-01] MEDS ORDERED: Acetaminophen IV 1,000 MG/100 ML BAG IVPB ONE (18:24)
[2020-10-01] MEDS ORDERED: Dextrose Gel 15 GM/37.5 ML TUBE PO PRN ×2 (18:40)
[2020-10-01] MEDS ORDERED: *HR* Dextrose 50 % in Water (Vial) 50 ML VIAL IVP PRN (18:40)
[2020-10-01] MEDS ORDERED: D5% in Water 1,000 ML IVC PRN (18:40)
[2020-10-01 19:06] LABS: INR 1.1; Prothrombin Time 12.4 Seconds (9.4-12.1)
[2020-10-01 19:09] LABS: Activated Partial Thrombo Time 25.8 Seconds (26.0-36.0)
[2020-10-01 19:26] LABS: Troponin I 0.03 ng/mL (< 0.04)
[2020-10-01 19:51] LABS: Estimated Average Glucose 163 mg/dl; Hemoglobin A1C 7.3 %
[2020-10-01] MEDS: Ringers Solution, Lactated 1,000 ML IVC SCH (20:23)
[2020-10-01] MEDS: Insulin LISPRO 300 UNITS/3 ML VIAL SUBQ SCH (20:42)
[2020-10-02 00:03] LABS: Sodium, Urine 65.1 mEq/L
[2020-10-02] MEDS: niCARdipine 20 MG/200 ML MLS IVC SCH ×4 (00:14→14:36)
[2020-10-02 01:38] LABS: BUN/Creatinine Ratio 6 (6-26); Blood Urea Nitrogen 45 mg/dL (8-23); Calcium 7.6 mg/dL (8.6-10.3); Carbon Dioxide 14 mEq/L (23-29); Chloride 112 mEq/L (98-107); Creatine Kinase 49 Units/L (30-223); Glucose 187 mg/dL (70-105); Magnesium 1.7 mg/dL (1.6-2.6); Osmolality,Calculated 304 (280-300); Phosphorous 6.4 mg/dL (2.7-4.5); Potassium 3.7 mEq/L (3.5-5.1); Sodium 139 mEq/L (136-145); Troponin I < 0.03 ng/mL (< 0.04); Uric Acid 8.3 mg/dL (2.3-7.6); eGFR For African Americans 9 (> 60); eGFR For Non-African Americans 8 (> 60)
[2020-10-02 01:38] LABS: Adenovirus Not Detected (Not Detect); Bordetella Pertussis Not Detected (Not Detect); Chlamydophila pneumoniae Not Detected (Not Detect); Coronavirus 229E Not Detected (Not Detect); Coronavirus HKU1 Not Detected (Not Detect); Coronavirus NL63 Not Detected (Not Detect); Coronavirus OC43 Not Detected (Not Detect); Human Metapneumovirus Not Detected (Not Detect); Human Rhinovirus/Enterovirus Not Detected (Not Detect); Influenza A Subtype 2009 H1 Not Detected (Not Detect); Influenza B Not Detected (Not Detect); Mycoplasma pneumoniae Not Detected (Not Detect); Parainfluenza Virus 1 Not Detected (Not Detect); Parainfluenza Virus 2 Not Detected (Not Detect); Parainfluenza Virus 3 Not Detected (Not Detect); Parainfluenza Virus 4 Not Detected (Not Detect); Respiratory Syncytial Virus Not Detected (Not Detect); SARS-CoV-2 Not Detected (Not Detect)
[2020-10-02] MEDS: NIFEdipine XL (24 HR) 30 MG TAB.ER.24 PO SCH (08:31)
[2020-10-02] MEDS: Insulin LISPRO 300 UNITS/3 ML VIAL SUBQ SCH ×3 (08:31→19:05)
[2020-10-02] MEDS: Ringers Solution, Lactated 1,000 ML IVC SCH (09:30)
[2020-10-02 09:59] LABS: INR 1.1; Prothrombin Time 12.4 Seconds (9.4-12.1)
[2020-10-02 10:31] LABS: Basophils % 0.7 %; Eosinophils # 0.2 K/mcL (0.0-0.6); Eosinophils % 5.2 %; Hematocrit 25.5 % (37.5-50.1); Hemoglobin 8.4 g/dL (12.9-16.9); Immature Granulocytes % 0.5 % (0-4); Lymphocytes # 1.7 K/mcL (0.6-4.6); Mean Corpuscular HGB Conc 32.9 g/dL (31.6-35.5); Mean Corpuscular Hemoglobin 28.5 pg (28.0-33.3); Mean Corpuscular Volume 86.4 fL (83.0-100.0); Monocytes # 0.3 K/mcL (0.0-1.3); Monocytes % 7.3 %; Platelet Count 179 K/mcL (140-400); Red Blood Count 2.95 M/mcL (4.19-5.50); Red Cell Distribution Width 15.5 % (11.5-14.5); Segmented Neutrophils % 46.3 %; White Blood Count 4.3 K/mcL (4.3-11.1)
[2020-10-02] MEDS: Sodium Bicarbonate 75 MEQ in 0.45 % Sodium Chloride 1,000 ML IVC SCH ×2 (11:20→23:30)
[2020-10-02 16:55] LABS: Glucose,Pleural Fluid 161 mg/dL (No Ref Range); LDH,Pleural Fluid 49 Units/L (No Ref Range); Total Protein,Pleural Fluid < 2.0 g/dL
[2020-10-02 17:06] LABS: Lactate Dehydrogenase 241 Units/L (140-271); Total Protein 5.7 g/dL (6.4-8.9)
[2020-10-02 17:32] LABS: RBC,Pleural Fluid < 2000 RBC/mcL
[2020-10-02 17:39] LABS: Appearance of Pleural Fl Clear (Clear); Basophils,Pleural Fluid 0 %; Eosinophils,Pleural Fluid 0 %; Monocytes,Pleural Fluid 0 %
[2020-10-02] MEDS ORDERED: Acetaminophen 325 MG TABLET PO PRN (21:17)
[2020-10-03 01:47] LABS: Hematocrit 24.1 % (37.5-50.1); Hemoglobin 8.1 g/dL (12.9-16.9); Mean Corpuscular HGB Conc 33.6 g/dL (31.6-35.5); Mean Corpuscular Hemoglobin 29.2 pg (28.0-33.3); Mean Platelet Volume 11.3 fL (9.4-12.4); Platelet Count 180 K/mcL (140-400); Red Blood Count 2.77 M/mcL (4.19-5.50); Red Cell Distribution Width 15.1 % (11.5-14.5); White Blood Count 6.1 K/mcL (4.3-11.1)
[2020-10-03 02:07] LABS: Albumin 2.4 g/dL (3.5-5.7); Albumin/Globulin Ratio 0.9 (1.1-2.2); Bilirubin,Total 0.2 mg/dL (0.3-1.0); Calcium 7.5 mg/dL (8.6-10.3); Globulin 2.8 g/dL (2.4-3.5); Potassium 3.8 mEq/L (3.5-5.1); Total Protein 5.2 g/dL (6.4-8.9)
[2020-10-03] MEDS: Insulin LISPRO 300 UNITS/3 ML VIAL SUBQ SCH ×3 (08:31→17:24)
[2020-10-03] MEDS: niCARdipine 20 MG/200 ML MLS IVC SCH ×6 (08:54→16:18)
[2020-10-03] MEDS: carvediloL 25 MG TABLET PO SCH ×2 (08:55→17:25)
[2020-10-03] MEDS: NIFEdipine XL (24 HR) 30 MG TAB.ER.24 PO SCH (08:55)
[2020-10-03] MEDS: Sodium Bicarbonate 75 MEQ in 0.45 % Sodium Chloride 1,000 ML IVC SCH ×2 (08:57→19:50)
[2020-10-03] MEDS ORDERED: *HR* Heparin 5,000 UNIT/ML VIAL IVP PRN (10:42)
[2020-10-03] MEDS ORDERED: Heparin 25,000UNIT/250ML 1/2NS 25,000 UNIT/250 ML IV.SOLN IVC SCH (10:45)
[2020-10-03 13:27] LABS: Protein/Creatinine Ratio,Urine 6.56 mg/mg (0.00-0.20)
[2020-10-03 13:31] LABS: Heparin anti-factor XA UFH < 0.04 IU/mL (0.30-0.70); INR 1.1; Prothrombin Time 12.2 Seconds (9.4-12.1)
[2020-10-03 13:34] LABS: Activated Partial Thrombo Time 25.3 Seconds (26.0-36.0)
[2020-10-03] MEDS: Heparin 25,000UNIT/250ML 1/2NS 25,000 UNIT/250 ML IV.SOLN IVC SCH (20:26)
[2020-10-04 05:20] LABS: Basophils % 0.6 %; Eosinophils # 0.3 K/mcL (0.0-0.6); Eosinophils % 4.5 %; Hematocrit 21.2 % (37.5-50.1); Hemoglobin 7.2 g/dL (12.9-16.9); Immature Granulocytes % 0.3 % (0-4); Lymphocytes # 2.6 K/mcL (0.6-4.6); Lymphocytes % 36.3 %; Mean Corpuscular Hemoglobin 29.5 pg (28.0-33.3); Mean Corpuscular Volume 86.9 fL (83.0-100.0); Mean Platelet Volume 11.7 fL (9.4-12.4); Monocytes # 0.3 K/mcL (0.0-1.3); Monocytes % 4.7 %; Neutrophils # 3.9 K/mcL (1.6-8.9); Platelet Count 171 K/mcL (140-400); Red Blood Count 2.44 M/mcL (4.19-5.50); Red Cell Distribution Width 15.5 % (11.5-14.5); Segmented Neutrophils % 53.6 %; White Blood Count 7.2 K/mcL (4.3-11.1)
[2020-10-04 05:34] LABS: Calcium 7.4 mg/dL (8.6-10.3); Potassium 3.5 mEq/L (3.5-5.1)
[2020-10-04] MEDS: Sodium Bicarbonate 75 MEQ in 0.45 % Sodium Chloride 1,000 ML IVC SCH (06:08)
[2020-10-04] MEDS: carvediloL 25 MG TABLET PO SCH ×2 (08:35→17:57)
[2020-10-04] MEDS: Insulin LISPRO 300 UNITS/3 ML VIAL SUBQ SCH ×3 (08:35→17:55)
[2020-10-04] MEDS: NIFEdipine XL (24 HR) 30 MG TAB.ER.24 PO SCH (08:35)
[2020-10-04 16:14] LABS: Fluid Source for Cholesterol PLEURAL FLUID
[2020-10-04] MEDS: Melatonin 3 MG TABLET PO SCH (20:29)
[2020-10-04] MEDS: Heparin 25,000UNIT/250ML 1/2NS 25,000 UNIT/250 ML IV.SOLN IVC SCH (22:41)
[2020-10-05 01:21] LABS: Basophils % 0.6 %; Eosinophils # 0.3 K/mcL (0.0-0.6); Eosinophils % 5.5 %; Hematocrit 20.8 % (37.5-50.1); Hemoglobin 6.8 g/dL (12.9-16.9); Immature Granulocytes % 0.2 % (0-4); Lymphocytes # 2.4 K/mcL (0.6-4.6); Lymphocytes % 46.7 %; Mean Corpuscular HGB Conc 32.7 g/dL (31.6-35.5); Mean Corpuscular Hemoglobin 28.9 pg (28.0-33.3); Mean Corpuscular Volume 88.5 fL (83.0-100.0); Mean Platelet Volume 11.4 fL (9.4-12.4); Monocytes # 0.3 K/mcL (0.0-1.3); Monocytes % 5.1 %; Neutrophils # 2.2 K/mcL (1.6-8.9); Platelet Count 144 K/mcL (140-400); Red Blood Count 2.35 M/mcL (4.19-5.50); Red Cell Distribution Width 15.8 % (11.5-14.5); Segmented Neutrophils % 41.9 %; White Blood Count 5.1 K/mcL (4.3-11.1)
[2020-10-05 01:40] LABS: Calcium 7.3 mg/dL (8.6-10.3); Potassium 3.7 mEq/L (3.5-5.1)
[2020-10-05] MEDS ORDERED: 0.9 % Sodium Chloride 250 ML IVC SCH (07:15)
[2020-10-05] MEDS: Insulin LISPRO 300 UNITS/3 ML VIAL SUBQ SCH ×3 (08:10→16:01)
[2020-10-05] MEDS: carvediloL 25 MG TABLET PO SCH ×2 (08:51→18:26)
[2020-10-05] MEDS: NIFEdipine XL (24 HR) 60 MG TAB.ER.24 PO SCH (08:51)
[2020-10-05] MEDS: Cholecalciferol (D-3) 1,000 UNIT (25MCG) TABLET PO SCH (08:51)
[2020-10-05 10:50] LABS: Cholesterol,Body Fluid 33 mg/dL
[2020-10-05] MEDS ORDERED: 0.9 % Sodium Chloride 250 ML ONE (10:59)
[2020-10-05 16:09] LABS: Hematocrit 26.2 % (37.5-50.1)
[2020-10-05 16:12] LABS: Hemoglobin 8.6 g/dL (12.9-16.9)
[2020-10-05] MEDS: Melatonin 3 MG TABLET PO SCH (20:53)
[2020-10-06] MEDS: *HR* Heparin 5,000 UNIT/ML VIAL IVP PRN (00:44)
[2020-10-06 02:58] LABS: Basophils % 0.5 %; Eosinophils # 0.2 K/mcL (0.0-0.6); Eosinophils % 3.8 %; Hematocrit 23.9 % (37.5-50.1); Hemoglobin 7.8 g/dL (12.9-16.9); Immature Granulocytes % 0.5 % (0-4); Lymphocytes # 2.4 K/mcL (0.6-4.6); Lymphocytes % 39.1 %; Mean Corpuscular HGB Conc 32.6 g/dL (31.6-35.5); Mean Corpuscular Hemoglobin 28.6 pg (28.0-33.3); Mean Corpuscular Volume 87.5 fL (83.0-100.0); Mean Platelet Volume 10.9 fL (9.4-12.4); Monocytes # 0.4 K/mcL (0.0-1.3); Monocytes % 5.8 %; Neutrophils # 3.1 K/mcL (1.6-8.9); Platelet Count 150 K/mcL (140-400); Red Blood Count 2.73 M/mcL (4.19-5.50); Red Cell Distribution Width 15.8 % (11.5-14.5); Segmented Neutrophils % 50.3 %; White Blood Count 6.1 K/mcL (4.3-11.1)
[2020-10-06 03:04] LABS: Calcium 7.6 mg/dL (8.6-10.3); Potassium 3.8 mEq/L (3.5-5.1)
[2020-10-06 03:08] LABS: Albumin 2.3 g/dL (3.5-5.7); Magnesium 1.7 mg/dL (1.6-2.6)
[2020-10-06] MEDS: Heparin 25,000UNIT/250ML 1/2NS 25,000 UNIT/250 ML IV.SOLN IVC SCH (06:42)
[2020-10-06] MEDS ORDERED: 0.9 % Sodium Chloride 250 ML IVC PRN (07:48)
[2020-10-06] MEDS ORDERED: *HR* Heparin 10,000 UNIT/10 ML VIAL IV PRN (07:48)
[2020-10-06] MEDS ORDERED: 0.9 % Sodium Chloride 1,000 ML PRIME SCH (08:00)
[2020-10-06] MEDS: carvediloL 25 MG TABLET PO SCH ×2 (08:09→17:13)
[2020-10-06] MEDS: Cholecalciferol (D-3) 1,000 UNIT (25MCG) TABLET PO SCH (08:10)
[2020-10-06] MEDS: NIFEdipine XL (24 HR) 60 MG TAB.ER.24 PO SCH (08:10)
[2020-10-06] MEDS: Insulin LISPRO 300 UNITS/3 ML VIAL SUBQ SCH ×3 (08:11→17:07)
[2020-10-06 09:50] LABS: Hepatitis B Surface Antibody < 3.10 mIU/mL
[2020-10-06 10:01] LABS: Hepatitis B Surface Antigen Nonreactive (Nonreactive)
[2020-10-06] MEDS ORDERED: Heparin 1,000 UNITS/500 mL 500 ML ONE (13:21)
[2020-10-06] MEDS ORDERED: CeFAZolin 2,000 MG/50 ML BAG IVPB ONE (14:03)
[2020-10-06] MEDS ORDERED: *HR* Heparin 5,000 UNIT/ML VIAL ONE (14:16)
[2020-10-06] MEDS: Melatonin 3 MG TABLET PO SCH (21:19)
[2020-10-07 01:09] LABS: Basophils % 0.6 %; Eosinophils # 0.2 K/mcL (0.0-0.6); Eosinophils % 3.8 %; Hematocrit 24.7 % (37.5-50.1); Hemoglobin 8.3 g/dL (12.9-16.9); Immature Granulocytes % 0.4 % (0-4); Lymphocytes # 1.8 K/mcL (0.6-4.6); Lymphocytes % 36.6 %; Mean Corpuscular HGB Conc 33.6 g/dL (31.6-35.5); Mean Corpuscular Hemoglobin 29.4 pg (28.0-33.3); Mean Corpuscular Volume 87.6 fL (83.0-100.0); Monocytes # 0.3 K/mcL (0.0-1.3); Monocytes % 5.8 %; Neutrophils # 2.6 K/mcL (1.6-8.9); Platelet Count 145 K/mcL (140-400); Red Blood Count 2.82 M/mcL (4.19-5.50); Red Cell Distribution Width 15.4 % (11.5-14.5); Segmented Neutrophils % 52.8 %
[2020-10-07 01:26] LABS: Calcium 7.7 mg/dL (8.6-10.3); Potassium 3.7 mEq/L (3.5-5.1)
[2020-10-07] MEDS: *HR* Heparin 5,000 UNIT/ML VIAL IVP PRN ×2 (02:09→17:43)
[2020-10-07 06:30] LABS: Magnesium 1.8 mg/dL (1.6-2.6)
[2020-10-07] MEDS ORDERED: 0.9 % Sodium Chloride 250 ML IVC PRN (07:28)
[2020-10-07] MEDS ORDERED: *HR* Heparin 10,000 UNIT/10 ML VIAL IV PRN (07:28)
[2020-10-07] MEDS ORDERED: 0.9 % Sodium Chloride 1,000 ML PRIME SCH (07:30)
[2020-10-07] MEDS: Insulin LISPRO 300 UNITS/3 ML VIAL SUBQ SCH ×3 (07:33→17:32)
[2020-10-07 10:13] LABS: ANA IgG by ELISA NONE DETECTED (None Detected); Serine Protease-3 Antibody 3 AU/mL (0-19)
[2020-10-07 10:55] LABS: Lambda Qnt Free Light Chains 86.12 mg/L (5.71-26.30)
[2020-10-07] MEDS: NIFEdipine XL (24 HR) 60 MG TAB.ER.24 PO SCH (11:23)
[2020-10-07] MEDS: carvediloL 25 MG TABLET PO SCH ×2 (11:23→17:33)
[2020-10-07] MEDS: Cholecalciferol (D-3) 1,000 UNIT (25MCG) TABLET PO SCH (11:24)
[2020-10-07 13:21] LABS: Kappa Qnt Free Light Chains 158.37 mg/L (3.30-19.40)
[2020-10-07] MEDS: Heparin 25,000UNIT/250ML 1/2NS 25,000 UNIT/250 ML IV.SOLN IVC SCH (17:34)
[2020-10-07] MEDS: Melatonin 3 MG TABLET PO SCH (20:39)
[2020-10-07] MEDS: Apixaban 5 MG TABLET PO SCH (20:39)
[2020-10-08 02:56] LABS: Basophils % 0.6 %; Eosinophils # 0.3 K/mcL (0.0-0.6); Eosinophils % 5.3 %; Immature Granulocytes % 0.2 % (0-4); Lymphocytes % 41.1 %; Monocytes # 0.4 K/mcL (0.0-1.3); Monocytes % 8.1 %; Segmented Neutrophils % 44.7 %
[2020-10-08 02:57] LABS: Hematocrit 25.9 % (37.5-50.1); Hemoglobin 8.4 g/dL (12.9-16.9); Lymphocytes # 2.1 K/mcL (0.6-4.6); Mean Corpuscular HGB Conc 32.4 g/dL (31.6-35.5); Mean Corpuscular Hemoglobin 28.6 pg (28.0-33.3); Mean Corpuscular Volume 88.1 fL (83.0-100.0); Mean Platelet Volume 11.7 fL (9.4-12.4); Neutrophils # 2.3 K/mcL (1.6-8.9); Platelet Count 152 K/mcL (140-400); Red Blood Count 2.94 M/mcL (4.19-5.50); Red Cell Distribution Width 15.5 % (11.5-14.5); White Blood Count 5.2 K/mcL (4.3-11.1)
[2020-10-08 03:04] LABS: Calcium 7.5 mg/dL (8.6-10.3); Magnesium 1.7 mg/dL (1.6-2.6); Phosphorous 3.9 mg/dL (2.7-4.5); Potassium 3.5 mEq/L (3.5-5.1)
[2020-10-08] MEDS ORDERED: 0.9 % Sodium Chloride 250 ML IVC PRN (05:34)
[2020-10-08] MEDS ORDERED: *HR* Heparin 10,000 UNIT/10 ML VIAL IV PRN (05:34)
[2020-10-08] MEDS ORDERED: 0.9 % Sodium Chloride 1,000 ML PRIME SCH (05:45)
[2020-10-08] MEDS: Insulin LISPRO 300 UNITS/3 ML VIAL SUBQ SCH ×3 (08:55→16:53)
[2020-10-08] MEDS: Apixaban 5 MG TABLET PO SCH ×2 (10:18→19:41)
[2020-10-08] MEDS: NIFEdipine XL (24 HR) 60 MG TAB.ER.24 PO SCH (10:18)
[2020-10-08] MEDS: Cholecalciferol (D-3) 1,000 UNIT (25MCG) TABLET PO SCH (10:18)
[2020-10-08] MEDS: carvediloL 25 MG TABLET PO SCH ×2 (10:18→16:55)
[2020-10-08] MEDS ORDERED: NIFEdipine XL (24 HR) 30 MG TAB.ER.24 PO ONE (14:28)
[2020-10-08] MEDS: Melatonin 3 MG TABLET PO SCH (19:41)
[2020-10-09 06:33] LABS: Hematocrit 27.4 % (37.5-50.1); Mean Corpuscular HGB Conc 32.8 g/dL (31.6-35.5); Mean Corpuscular Volume 88.4 fL (83.0-100.0); Mean Platelet Volume 12.4 fL (9.4-12.4); Platelet Count 148 K/mcL (140-400); Red Cell Distribution Width 14.9 % (11.5-14.5); White Blood Count 5.1 K/mcL (4.3-11.1)
[2020-10-09] MEDS: Cholecalciferol (D-3) 1,000 UNIT (25MCG) TABLET PO SCH (07:52)
[2020-10-09] MEDS: NIFEdipine XL (24 HR) 30 MG TAB.ER.24 PO SCH (07:52)
[2020-10-09] MEDS: Apixaban 5 MG TABLET PO SCH ×2 (07:53→21:02)
[2020-10-09] MEDS: carvediloL 25 MG TABLET PO SCH ×2 (07:53→16:42)
[2020-10-09 07:59] LABS: Calcium 7.9 mg/dL (8.6-10.3); Potassium 3.5 mEq/L (3.5-5.1)
[2020-10-09] MEDS: Insulin LISPRO 300 UNITS/3 ML VIAL SUBQ SCH ×3 (08:41→17:11)
[2020-10-09] MEDS: Melatonin 3 MG TABLET PO SCH (21:02)
[2020-10-10 02:13] LABS: Hemoglobin 7.9 g/dL (12.9-16.9); Mean Corpuscular Hemoglobin 28.8 pg (28.0-33.3); Red Blood Count 2.74 M/mcL (4.19-5.50)
[2020-10-10 02:15] LABS: Hematocrit 24.5 % (37.5-50.1); Immature Platelets 5.5 % (1.1-6.1); Mean Corpuscular HGB Conc 32.2 g/dL (31.6-35.5); Mean Corpuscular Volume 89.4 fL (83.0-100.0); Mean Platelet Volume 11.9 fL (9.4-12.4); White Blood Count 5.5 K/mcL (4.3-11.1)
[2020-10-10 02:31] LABS: Calcium 7.3 mg/dL (8.6-10.3); Potassium 3.5 mEq/L (3.5-5.1)
[2020-10-10] MEDS ORDERED: 0.9 % Sodium Chloride 250 ML IVC PRN (07:30)
[2020-10-10] MEDS ORDERED: *HR* Heparin 10,000 UNIT/10 ML VIAL IV PRN (07:30)
[2020-10-10] MEDS ORDERED: 0.9 % Sodium Chloride 1,000 ML PRIME SCH (07:30)
[2020-10-10] MEDS: carvediloL 25 MG TABLET PO SCH (08:00)
[2020-10-10] MEDS: Insulin LISPRO 300 UNITS/3 ML VIAL SUBQ SCH ×2 (08:19→12:30)
[2020-10-10] MEDS: Apixaban 5 MG TABLET PO SCH (09:00)
[2020-10-10 12:35] VITALS: BP 169/83
[2020-10-10] MEDS: NIFEdipine XL (24 HR) 30 MG TAB.ER.24 PO SCH (14:13)
[2020-10-10] MEDS: Cholecalciferol (D-3) 1,000 UNIT (25MCG) TABLET PO SCH (14:13)
[2020-10-11 15:17] LABS: Alpha 2 Globulin (PEP) 0.78 g/dL (0.48-1.05); Beta Globulin (PEP) 0.63 g/dL (0.48-1.10)
[2020-10-12 06:41] LABS: IFE Reflexed NOT DONE
== END 2020-10-10 16:30 | disposition home or self-care (01) | DRG 673 ==
LOC: EMEROOARM 12:13 → 2NNU 12:13 → SUATTDRO 17:54 → 2NNU 18:29 → 2ANU 10-03 18:00
PROVIDERS: ADMIT Internal Medicine; ATTEND Internal Medicine
PROC: IRPERMA (2020-10-06 12:00)